=== PATIENT | male | born 1955 | race Caucasian/White ===

== ENCOUNTER 2019-08-26 11:11 | Emergency (ER) | payer BC, MEDICARE ==
[~2019-08-26] VITALS: Ht 175.3 cm; Wt 149.7 kg
[~2019-08-26 11:11] MED LIST: ALL DAY ALLERGY10 M1 PO; ALLEGRA ALLERG180 MG PO; ALLERGY RELIEF10 MG PO; AMLODIPINE BESYL5 MG PO; ASPIRIN EC81 MG PO; ASPIRIN81 MG PO; BUSPIRONE HCL10 MG PO; CARVEDILOL12.5 MG PO; COREG25 MG PO; ENTRESTO 24 MG1 EACH PO; FUROSEMIDE40 MG PO; GLUCOSAMINE &1 EAC1 PO; IBUPROFEN600 MG PO; LASIX20 MG PO; LOSARTAN-HCTZ1 EAC2 PO; METFORMIN HCL500 MG PO; MULTIVITAMINS1 EAC7 PO; NORCO 10-325 T1 EACH PO; OMEPRAZOLE20 MG PO; OXYCODONE HCL10 MG PO; SPIRONOLACTONE25 MG PO; VIIBRYD40 MG PO; VITAMIN D5000 UNIT PO; WARFARIN SODIUM5 MG PO
[2019-08-26] MEDS ORDERED: B-12500 MCG PO (11:26)
[2019-08-26] MEDS ORDERED: CARVEDILOL12.5 MG PO (11:27)
[2019-08-26] MEDS ORDERED: FUROSEMIDE80 MG PO (11:28)
[2019-08-26] MEDS ORDERED: VITAMIN B COMP1 EACH PO (11:28)
[2019-08-26] MEDS ORDERED: VITAMIN D3125 MC2 PO (11:28)
[2019-08-26] MEDS ORDERED: ZITHROMAX250 MG PO (12:57)
[2019-08-26] MEDS ORDERED: PROVENTIL HFA6.7 GM INH (12:57)
--- NOTE | 2019-08-26 16:38 | EKG ---
[facility] [address] [facility] [place] [address] Signed Ventricular-paced rhythm Biventricular pacemaker detected Abnormal ECG When compared with ECG of 13-MAY-2018 17:29, Electronic ventricular pacemaker has replaced Sinus rhythm Confirmed by JENNIFER TOWNSEND MD ([id number]) on 08/26/2019 4:37:55 PM Electronically Signed By: JENNIFER TOWNSEND MD 08/26/19 1638 PATIENT NAME: JEANNE MONTE Electrocardiogram DATE OF : 53 PHYSICIAN: JENNIFER TOWNSEND MD REPORT #: [id number] REPORT IS CONFIDENTIAL AND NOT TO BE RELEASED WITHOUT AUTHORIZATION
== END 2019-08-26 13:15 | disposition home or self-care (01) ==
LOC: ED 11:11
DX: J40 Bronchitis, not specified as acute or chronic (principal); I11.0 Hypertensive heart disease with heart failure; I50.9 Heart failure, unspecified; Z88.0 Allergy status to penicillin; Z79.899 Other long term (current) drug therapy
CPT/HCPCS: 71045; 80053; 83605; 83735; 83880; 84484; 85025; 93005; 93010; 94640; 99285-25

== ENCOUNTER 2024-06-18 19:29 | Inpatient (IN) | payer BC, MEDICARE ==
[~2024-06-18] VITALS: Ht 175.3 cm; Wt 127.5 kg
[~2024-06-18 19:29] MED LIST changes: +B-12500 MCG PO; +COREG6.25 MG PO; +FUROSEMIDE80 MG PO; +PROVENTIL HFA6.7 GM INH; +VITAMIN B COMP1 EACH PO; +VITAMIN D3125 MC2 PO; +ZITHROMAX250 MG PO
[2024-06-18] MEDS ORDERED: FARESTON60 MG PO (19:52)
[2024-06-18] MEDS ORDERED: ELIQUIS5 MG PO (19:52)
[2024-06-18] MEDS ORDERED: ondansetron HCL 4 MG/2 ML VIAL IV ONE (20:15)
[2024-06-18 20:27] LABS: RBC 4.24 M/ul (4.3-5.7)
[2024-06-18] MEDS ORDERED: MORPHINE SULFATE 4 MG/ML VIAL IV ONE (20:30)
[2024-06-18 20:31] LABS: BASOPHILS 0.8 % (0-2); EOSINOPHILS 0.4 % (0-6); HEMATOCRIT 37.8 % (35.0-50.0); HEMOGLOBIN 12.5 g/dL (12.0-18.0); LYMPHOCYTES 4.3 % (24-44); MCH 29.5 (27-36); MCHC 33.1 g/dl (30-36); MCV 89.2 fl (81-99); MONOCYTES 7.4 % (0-12); NEUTROPHILS 87.1 % (39-80); PLATELET COUNT 332 K/uL (140-440); RDW 17.4 (10.5-15.0)
[2024-06-18 20:35] LABS: BILIRUBIN, URINE NEGATIVE (negative); BLOOD/HGB, URINE NEGATIVE (Negative); KETONE, URINE TRACE (Negative); LEUK ESTERASE, URINE NEGATIVE (negative); NITRITE, URINE NEGATIVE (negative); PH, URINE 5.5 (5-7)
[2024-06-18 20:37] LABS: INR 1.32 (0.80-1.30); PROTIME 15.7 Sec (11.2-14.2)
[2024-06-18 20:56] LABS: ALBUMIN 2.4 g/dL (3.4-5.0); ALBUMIN/GLOBULIN RATIO 0.45 (1.1-2.4); ANION GAP 18.2 (7-21); BILIRUBIN, TOTAL 0.6 ng/dL (0.2-1.0); BUN/CREATININE RATIO 13.13 (6.0-28.6); CALCIUM 8.8 mg/dL (8.5-10.1); CREATININE, SERUM 1.37 mg/dL (0.70-1.30); MAGNESIUM 1.9 mg/dL (1.8-2.4); POTASSIUM 3.2 mmol/L (3.5-5.1); PROTEIN, TOTAL 7.7 g/dL (6.4-8.2)
[2024-06-18 20:56] LABS: BACTERIA, URINE 1+ /hpf (negative); CASTS, URINE HYALINE 1+ \\lpf; COLLECTION TYPE, URINE CLEAN CATCH; CRYSTALS, URINE NONE SEEN (0-1+); EPITHELIAL CELLS, URINE SQUAMOUS 1+ /lpf (0-1+); RED BLOOD CELLS, URINE 0-1 /hpf (0-5); REFLEX CULTURE, URINE No (No)
[2024-06-18] MEDS ORDERED: HYDROmorphone HCL 1 MG/ML SYR IV PRN ×2 (21:45→22:00)
[2024-06-18] MEDS ORDERED: metroNIDAZOLE/SODIUM CHLORIDE 500 MG/100 ML PIGGYBACK IV ONE (21:45)
[2024-06-18] MEDS ORDERED: levoFLOXacin 750 MG PIGGYBACK IV ONE (21:45)
[2024-06-18] MEDS ORDERED: FAMOTIDINE 20 MG/ 2 ML VIAL IV SCH (21:50)
[2024-06-18] MEDS ORDERED: DEXTROSE 5% - LACTATED RINGERS 1,000 ML IV SCH (22:00)
[2024-06-18] MEDS ORDERED: ondansetron HCL 4 MG/2 ML VIAL IV PRN ×2 (22:00→22:30)
[2024-06-18] MEDS ORDERED: CIPROFLOXACIN/DEXTROSE 400 MG/200 ML PIGGYBACK IV SCH (22:25)
[2024-06-18] MEDS ORDERED: LACTATED RINGER'S 1,000 ML IV SCH (22:30)
[2024-06-18] MEDS ORDERED: KETOROLAC TROMETHAMINE 30 MG/ML VIAL IV PRN (22:30)
[2024-06-18] MEDS ORDERED: MORPHINE SULFATE 10 MG/ML VIAL IV PRN (22:30)
[2024-06-18] MEDS ORDERED: ATIVAN1 MG PO (22:32)
[2024-06-18] MEDS ORDERED: FARXIGA10 MG PO (22:32)
[2024-06-18] MEDS ORDERED: busPIRone HCL 5 MG TAB PO SCH (22:41)
[2024-06-18] MEDS ORDERED: carvediloL 6.25 MG TAB PO SCH (22:42)
[2024-06-18] MEDS ORDERED: INHALER, ASSIST DEVICES 1 EACH SPACER MISC ONE (22:45)
[2024-06-18] MEDS ORDERED: ALBUTEROL SULFATE 8 GM INH INH PRN (22:45)
[2024-06-18 23:04] VITALS: BP 112/62
[2024-06-18] MEDS ORDERED: ALBUTEROL SULFATE 0.083% 3 ML VIAL INH PRN (23:15)
[2024-06-19] VITALS (10 sets, daily range): BP systolic 93–105; BP diastolic 50–59
[2024-06-19 05:45] LABS: BASOPHILS 0.4 % (0-2); EOSINOPHILS 0.3 % (0-6); HEMATOCRIT 33.5 % (35.0-50.0); HEMOGLOBIN 11.1 g/dL (12.0-18.0); LYMPHOCYTES 6.2 % (24-44); MCH 29.6 (27-36); MCHC 33.1 g/dl (30-36); MCV 89.4 fl (81-99); MONOCYTES 9.5 % (0-12); NEUTROPHILS 83.6 % (39-80); PLATELET COUNT 290 K/uL (140-440); RBC 3.75 M/ul (4.3-5.7); RDW 16.8 (10.5-15.0)
[2024-06-19] MEDS ORDERED: ACETAMINOPHEN 500 MG TAB PO SCH (06:00)
[2024-06-19] MEDS ORDERED: metroNIDAZOLE/SODIUM CHLORIDE 500 MG/100 ML PIGGYBACK IV SCH (06:00)
[2024-06-19 06:01] LABS: ALBUMIN 2.1 g/dL (3.4-5.0); ALBUMIN/GLOBULIN RATIO 0.45 (1.1-2.4); ANION GAP 11.1 (7-21); BILIRUBIN, TOTAL 0.5 ng/dL (0.2-1.0); BUN/CREATININE RATIO 13.95 (6.0-28.6); CALCIUM 8.7 mg/dL (8.5-10.1); CREATININE, SERUM 1.29 mg/dL (0.70-1.30); POTASSIUM 3.1 mmol/L (3.5-5.1); PROTEIN, TOTAL 6.8 g/dL (6.4-8.2)
[2024-06-19] MEDS ORDERED: POTASSIUM CHLORIDE 40 MEQ in DEXTROSE 5% 250 ML IV ONE (08:00)
[2024-06-19] MEDS ORDERED: FAMOTIDINE 20 MG/ 2 ML VIAL IV SCH (09:00)
[2024-06-19] MEDS ORDERED: TORSEMIDE20 MG PO (10:15)
[2024-06-19] MEDS ORDERED: TRAMADOL HCL50 MG PO (10:16)
[2024-06-19] MEDS ORDERED: ZYLOPRIM100 MG PO (10:16)
[2024-06-19] MEDS ORDERED: ZYRTEC10 MG PO (10:17)
[2024-06-19] MEDS ORDERED: MELATONIN3 MG PO (10:17)
[2024-06-19] MEDS ORDERED: NYSTOP60 GM TOP (10:18)
[2024-06-19] MEDS ORDERED: LACTULOSE10 GM/15 M PO (10:19)
[2024-06-19] MEDS ORDERED: ACETAMINOPHEN500 M1 PO (10:20)
[2024-06-19] MEDS ORDERED: LORazepam 0.5 MG TAB ONE (18:02)
[2024-06-19] MEDS ORDERED: LORazepam 1 MG TAB PO PRN (22:00)
[2024-06-20] VITALS (10 sets, daily range): BP systolic 99–143; BP diastolic 57–72
[2024-06-20 05:28] LABS: BASOPHILS 0.4 % (0-2); EOSINOPHILS 0.9 % (0-6); HEMATOCRIT 36.1 % (35.0-50.0); HEMOGLOBIN 11.7 g/dL (12.0-18.0); LYMPHOCYTES 3.1 % (24-44); MCH 29.1 (27-36); MCHC 32.4 g/dl (30-36); MCV 89.8 fl (81-99); MONOCYTES 8.4 % (0-12); NEUTROPHILS 87.2 % (39-80); PLATELET COUNT 344 K/uL (140-440); RBC 4.02 M/ul (4.3-5.7); RDW 17.5 (10.5-15.0)
[2024-06-20 05:41] LABS: ALBUMIN 2.2 g/dL (3.4-5.0); ALBUMIN/GLOBULIN RATIO 0.44 (1.1-2.4); ANION GAP 14.3 (7-21); BILIRUBIN, TOTAL 0.4 ng/dL (0.2-1.0); BUN/CREATININE RATIO 14.09 (6.0-28.6); CALCIUM 9.2 mg/dL (8.5-10.1); CREATININE, SERUM 1.49 mg/dL (0.70-1.30); POTASSIUM 3.3 mmol/L (3.5-5.1); PROTEIN, TOTAL 7.2 g/dL (6.4-8.2)
[2024-06-20] MEDS ORDERED: DIATRIZOATE MEGLU/DIATRIZO SOD 15 ML BTL PO ONE (11:45)
[2024-06-20] MEDS ORDERED: POTASSIUM CHLORIDE 40 MEQ in DEXTROSE 5% 250 ML IV ONE (15:00)
[2024-06-21] VITALS (10 sets, daily range): BP systolic 86–124; BP diastolic 54–69
[2024-06-21 05:26] LABS: BASOPHILS 0.3 % (0-2); EOSINOPHILS 0.9 % (0-6); HEMATOCRIT 34.3 % (35.0-50.0); HEMOGLOBIN 11.3 g/dL (12.0-18.0); LYMPHOCYTES 2.3 % (24-44); MCH 29.2 (27-36); MCV 88.5 fl (81-99); MONOCYTES 7.3 % (0-12); NEUTROPHILS 89.2 % (39-80); PLATELET COUNT 370 K/uL (140-440); RBC 3.88 M/ul (4.3-5.7); RDW 17.3 (10.5-15.0)
[2024-06-21 05:46] LABS: ALBUMIN 2.1 g/dL (3.4-5.0); ALBUMIN/GLOBULIN RATIO 0.45 (1.1-2.4); ANION GAP 12.4 (7-21); BILIRUBIN, TOTAL 0.5 ng/dL (0.2-1.0); BUN/CREATININE RATIO 13.69 (6.0-28.6); CREATININE, SERUM 1.46 mg/dL (0.70-1.30); POTASSIUM 3.4 mmol/L (3.5-5.1); PROTEIN, TOTAL 6.8 g/dL (6.4-8.2)
[2024-06-21] MEDS ORDERED: CALCIUM CARBONATE 500 MG CHEW PO SCH (08:00)
[2024-06-21] MEDS ORDERED: LACTATED RINGER'S 500 ML IV ONE (19:00)
[2024-06-21] MEDS ORDERED: ACETAMINOPHEN 500 MG TAB PO SCH (20:00)
[2024-06-22] VITALS (10 sets, daily range): BP systolic 98–138; BP diastolic 55–77
[2024-06-22] MEDS ORDERED: MEROPENEM 500 MG in SODIUM CHLORIDE 0.9% 100 ML IV SCH ×2 (02:00→14:00)
[2024-06-22 05:30] LABS: BASOPHILS 0.6 % (0-2); EOSINOPHILS 0.7 % (0-6); HEMATOCRIT 34.9 % (35.0-50.0); HEMOGLOBIN 11.2 g/dL (12.0-18.0); LYMPHOCYTES 3.6 % (24-44); MCH 28.4 (27-36); MCHC 32.1 g/dl (30-36); MCV 88.6 fl (81-99); MONOCYTES 8.1 % (0-12); PLATELET COUNT 407 K/uL (140-440); RBC 3.94 M/ul (4.3-5.7); RDW 17.5 (10.5-15.0)
[2024-06-22 05:41] LABS: ALBUMIN 1.9 g/dL (3.4-5.0); ALBUMIN/GLOBULIN RATIO 0.38 (1.1-2.4); ANION GAP 15.3 (7-21); BILIRUBIN, TOTAL 0.5 ng/dL (0.2-1.0); BUN/CREATININE RATIO 14.11 (6.0-28.6); CREATININE, SERUM 1.63 mg/dL (0.70-1.30); MAGNESIUM 1.9 mg/dL (1.8-2.4); POTASSIUM 3.3 mmol/L (3.5-5.1); PROTEIN, TOTAL 6.9 g/dL (6.4-8.2)
[2024-06-22] MEDS ORDERED: FAMOTIDINE 20 MG TAB PO SCH (09:00)
[2024-06-22] MEDS ORDERED: TRAMADOL HCL 50 MG TAB PO PRN (10:15)
[2024-06-22] MEDS ORDERED: HEParin SOD (PORCINE) 5,000 UNIT/ML SDV SUB-Q SCH (10:45)
[2024-06-22] MEDS ORDERED: HYDROmorphone HCL 1 MG/ML SYR IV PRN (10:45)
[2024-06-22] MEDS ORDERED: DAPAGLIFLOZIN PROPANEDIOL 10 MG TABLET PO SCH (11:00)
[2024-06-22] MEDS ORDERED: VILAZODONE HCL 40 MG PO SCH (11:00)
--- NOTE | 2024-06-22 11:11 | HP ---
[facility] [address] [place], [place] [address] Signed ADMISSION DATE: 06/18/2024 REASON FOR ADMISSION: Acute perforated diverticulitis with localized abscess, 2 x 6 cm. 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 Sigala with three days of increasing left lower abdominal pain. His white count was slightly elevated at 11.6. A CT scan was performed, which showed what appears to be a perforated diverticulitis of the sigmoid with a 3 x 6 cm peridiverticular abscess. Some pneumatosis was noted within the cecum and the ascending colon, which was of uncertain etiology and some inflammatory changes of the colon near the dome of the bladder without evidence of colovesical fistula. Multiple bilateral nonobstructing renal calculi were noted as well. He is admitted for further evaluation and care. His symptoms began 3 days ago and culminated in severe and significant pain tonight. He has not been able to eat well for the past few days he notes. He has not had diverticulitis problem in the past. He did undergo colonoscopy more than 10 years ago, which was said to be normal and he was recommended to have repeat colonoscopy in 10 years. He has no family history of colon cancer that he is aware of, nor any family history of diverticulitis proper, though a distant relative did require colon surgery of some sort for some reason. The patient has other medical problems, most notably, congestive heart failure. He has a pacemaker that is on the right side (previously on the left, got infected and required explantation). 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 Review of medical records including Dr. Lopez's note shows him not to have an inheritable coagulopathy. He has been taking Eliquis on that basis ostensibly. Additionally, he has undergone gastric bypass operation for which he did lose weight, appendectomy and tonsillectomy. CURRENT MEDICATIONS: Include albuterol sulfate. He also takes a buspirone, vilazodone, sacubitril/valsartan, Eliquis, and carvedilol. He has discontinued warfarin now in favor of Eliquis. SOCIAL HISTORY: Electronically Signed By: NIA GUZMÁN MD 06/22/24 1111 PATIENT NAME: JEANNE GAVIRIA HISTORY AND PHYSICAL DATE OF : 53 REPORT #: [id number] PHYSICIAN: NIA GUZMÁN MD PCP: BENNETT BUCHANAN MD REPORT IS CONFIDENTIAL AND NOT TO BE RELEASED WITHOUT AUTHORIZATION [facility] [address] [place], [place] [address] Signed He is . He has a son, Noe, who is in [employer] [facility] nurse and his , Joan Gaviria, who is the [place] nursing home assistant. REVIEW OF SYSTEMS: He denies any shortness of breath or chest pain at this time. He denies any recent wheezing per se. His abdominal pain is mostly in the left lower quadrant. Has no pneumaturia. PHYSICAL EXAMINATION: GENERAL: An obese white man who looks to be in only mild discomfort. He does not look systemically toxic. VITAL SIGNS: Temperature presentation 98.7, pulse 92, respirations 18, blood pressure 126/80. EKG shows a paced rhythm. NECK: Trachea is midline. Chest shows diminished respiratory excursion and inaudible breath sounds. HEART: Regular. ABDOMEN: Obese, but soft. There is tenderness in the left lower quadrant. I do not detect a mass per se. EXTREMITIES: Show no clubbing, cyanosis, or edema. LABORATORY STUDIES: Show a white count of 11.6, hematocrit 37.8, platelets 332,000. Chem profile shows a potassium of 3.2, creatinine 1.37, glucose of 121, a BNP of 1282, which was elevated and troponin 7.8, which is normal. Lipase was noted to be 14. Albumin 2.4. CT scan was reviewed in detail and findings are as previously described. ASSESSMENT: The patient has a localized perforation of sigmoid diverticulitis. Most such small lesions do not actually require drainage and resolve on their own with appropriate support including the antibiotics and bowel rest. That is what we will initiate at this time. Still, we will hold his Eliquis for now and in lieu of that to give sequential compression device stockings as his indication for anticoagulation more than congestive heart failure is history of saddle embolism in 2018. We will treat with broad-spectrum antibiotic combination to include Cipro and Flagyl. The patient does have allergy to penicillin. We will additionally try to maintain his usual status regarding CHF and so forth and I have asked hospitalist Dr. Chávez to consult on the patient no later than tomorrow morning, which he agrees to do. Most likely, he will settle this problem with IV antibiotics, bowel rest and transition to oral antibiotics and ultimately not require surgical intervention, though it is a consideration should things worsen or the abscess becomes larger or other obvious causes Electronically Signed By: NIA GUZMÁN MD 06/22/24 1111 PATIENT NAME: JEANNE GAVIRIA HISTORY AND PHYSICAL DATE OF : 53 REPORT #: [id number] PHYSICIAN: NIA GUZMÁN MD PCP: BENNETT BUCHANAN MD REPORT IS CONFIDENTIAL AND NOT TO BE RELEASED WITHOUT AUTHORIZATION [address] [place] [address] Signed to need operative intervention. MD PATRICIA Oneill/LEONARDO /[id number] cc: Dr. Jose F Buchanan MD Copies: BENNETT BUCHANAN MD ~ Electronically Signed By: NIA GUZMÁN MD 06/22/24 1111 PATIENT NAME: JEANNE GAVIRIA HISTORY AND PHYSICAL DATE OF : 53 REPORT #: [id number] PHYSICIAN: NIA GUZMÁN MD PCP: BENNETT BUCHANAN MD REPORT IS CONFIDENTIAL AND NOT TO BE RELEASED WITHOUT AUTHORIZATION
[2024-06-22] MEDS ORDERED: SACUBITRIL/VALSARTAN 1 EACH TABLET PO SCH (11:30)
[2024-06-22] MEDS ORDERED: HEPARIN SOD,PORK IN 0.45% NACL 500 ML IV SCH (13:15)
[2024-06-22] MEDS ORDERED: HEParin SOD (PORCINE) 5,000 UNIT/ML SYR IV ONE (13:15)
[2024-06-22] MEDS ORDERED: HEParin SOD (PORCINE) 5,000 UNIT/ML SYR IV PRN ×3 (13:15)
[2024-06-22 13:28] LABS: BASOPHILS 0.1 % (0-2); EOSINOPHILS 0.3 % (0-6); HEMATOCRIT 37.7 % (35.0-50.0); HEMOGLOBIN 12.4 g/dL (12.0-18.0); LYMPHOCYTES 2.4 % (24-44); MCH 29.3 (27-36); MCHC 32.8 g/dl (30-36); MCV 89.4 fl (81-99); NEUTROPHILS 92.2 % (39-80); PLATELET COUNT 414 K/uL (140-440); RBC 4.22 M/ul (4.3-5.7); RDW 17.6 (10.5-15.0)
[2024-06-22 13:38] LABS: INR 1.48 (0.80-1.30); PROTIME 17.5 Sec (11.2-14.2)
[2024-06-22 13:40] LABS: PARTIAL THROMBOPLASTIN TIME 48.1 Sec (22.9-41.3)
[2024-06-23] VITALS (10 sets, daily range): BP systolic 100–132; BP diastolic 62–73
[2024-06-23] MEDS ORDERED: MEROPENEM 500 MG in SODIUM CHLORIDE 0.9% 100 ML IV SCH (02:00)
[2024-06-23 05:37] LABS: BASOPHILS 0.3 % (0-2); EOSINOPHILS 0.3 % (0-6); HEMATOCRIT 35.7 % (35.0-50.0); HEMOGLOBIN 11.7 g/dL (12.0-18.0); LYMPHOCYTES 4.4 % (24-44); MCHC 32.8 g/dl (30-36); MCV 88.5 fl (81-99); MONOCYTES 7.4 % (0-12); NEUTROPHILS 87.6 % (39-80); PLATELET COUNT 455 K/uL (140-440); RBC 4.03 M/ul (4.3-5.7); RDW 17.6 (10.5-15.0)
[2024-06-23 05:55] LABS: ALBUMIN/GLOBULIN RATIO 0.39 (1.1-2.4); BILIRUBIN, TOTAL 0.4 ng/dL (0.2-1.0); BUN/CREATININE RATIO 19.4 (6.0-28.6); CREATININE, SERUM 1.34 mg/dL (0.70-1.30); PROTEIN, TOTAL 7.1 g/dL (6.4-8.2)
[2024-06-23] MEDS ORDERED: FAMOTIDINE 20 MG/ 2 ML VIAL IV SCH (09:00)
[2024-06-23] MEDS ORDERED: POTASSIUM CHLORIDE 10 MEQ TABCR PO ONE (09:00)
[2024-06-23] MEDS ORDERED: POTASSIUM CHLORIDE 40 MEQ in DEXTROSE 5% 250 ML IV ONE (09:00)
[2024-06-24] VITALS (8 sets, daily range): BP systolic 101–122; BP diastolic 59–71
[2024-06-24 05:47] LABS: ALBUMIN 1.9 g/dL (3.4-5.0); ALBUMIN/GLOBULIN RATIO 0.37 (1.1-2.4); ANION GAP 14.6 (7-21); BILIRUBIN, TOTAL 0.4 ng/dL (0.2-1.0); BUN/CREATININE RATIO 21.31 (6.0-28.6); CREATININE, SERUM 1.22 mg/dL (0.70-1.30); POTASSIUM 3.6 mmol/L (3.5-5.1)
[2024-06-24 08:11] LABS: BASOPHILS 0.4 % (0-2); EOSINOPHILS 0.7 % (0-6); HEMATOCRIT 37.2 % (35.0-50.0); HEMOGLOBIN 12.2 g/dL (12.0-18.0); LYMPHOCYTES 4.2 % (24-44); MCH 29.1 (27-36); MCHC 32.8 g/dl (30-36); MCV 88.9 fl (81-99); MONOCYTES 5.6 % (0-12); NEUTROPHILS 89.1 % (39-80); PLATELET COUNT 398 K/uL (140-440); RBC 4.18 M/ul (4.3-5.7); RDW 18.1 (10.5-15.0)
[2024-06-24] MEDS ORDERED: LACTATED RINGER'S 1,000 ML IV SCH (08:30)
[2024-06-24] MEDS ORDERED: ENOXAPARIN SODIUM 120 MG/0.8 ML SYR SUB-Q SCH (21:00)
[2024-06-25] VITALS (9 sets, daily range): BP systolic 102–113; BP diastolic 57–70
[2024-06-25 05:19] LABS: BASOPHILS 0.9 % (0-2); EOSINOPHILS 1.3 % (0-6); HEMATOCRIT 36.2 % (35.0-50.0); HEMOGLOBIN 11.8 g/dL (12.0-18.0); LYMPHOCYTES 4.6 % (24-44); MCH 28.8 (27-36); MCHC 32.6 g/dl (30-36); MCV 88.3 fl (81-99); MONOCYTES 9.6 % (0-12); NEUTROPHILS 83.6 % (39-80); PLATELET COUNT 529 K/uL (140-440); RDW 18.1 (10.5-15.0)
[2024-06-25 05:29] LABS: ANION GAP 12.8 (7-21); BUN/CREATININE RATIO 22.85 (6.0-28.6); CREATININE, SERUM 1.05 mg/dL (0.70-1.30); POTASSIUM 3.8 mmol/L (3.5-5.1)
[2024-06-25] MEDS ORDERED: FAMOTIDINE 20 MG TAB PO SCH (09:00)
[2024-06-25] MEDS ORDERED: IBLOOD GLUCOSE TEST STRIP 1 EA TEST VI SCH (20:00)
[2024-06-25] MEDS ORDERED: Insulin Regular, Human 100 UNIT/ML ML SUB-Q SCH (20:00)
[2024-06-26] VITALS (9 sets, daily range): BP systolic 109–123; BP diastolic 64–75
[2024-06-26 05:24] LABS: BASOPHILS 0.8 % (0-2); EOSINOPHILS 1.4 % (0-6); HEMATOCRIT 35.6 % (35.0-50.0); HEMOGLOBIN 11.5 g/dL (12.0-18.0); LYMPHOCYTES 4.9 % (24-44); MCH 28.4 (27-36); MCHC 32.2 g/dl (30-36); MCV 88.2 fl (81-99); MONOCYTES 9.3 % (0-12); NEUTROPHILS 83.6 % (39-80); PLATELET COUNT 506 K/uL (140-440); RBC 4.04 M/ul (4.3-5.7)
[2024-06-26 05:41] LABS: ANION GAP 13.2 (7-21); BUN/CREATININE RATIO 21.9 (6.0-28.6); CALCIUM 9.1 mg/dL (8.5-10.1); CREATININE, SERUM 1.05 mg/dL (0.70-1.30); MAGNESIUM 1.9 mg/dL (1.8-2.4); POTASSIUM 4.2 mmol/L (3.5-5.1)
[2024-06-26] MEDS ORDERED: GLYCERIN 2 GM SUPP PR PRN (18:45)
[2024-06-26] MEDS ORDERED: carvediloL 6.25 MG TAB PO SCH (21:00)
[2024-06-27] VITALS (9 sets, daily range): BP systolic 108–125; BP diastolic 64–67
[2024-06-27 05:42] LABS: HEMATOCRIT 33.9 % (35.0-50.0); HEMOGLOBIN 11.3 g/dL (12.0-18.0); LYMPHOCYTES 4.4 % (24-44); MCH 29.2 (27-36); MCHC 33.2 g/dl (30-36); MCV 88.1 fl (81-99); NEUTROPHILS 85.6 % (39-80); PLATELET COUNT 475 K/uL (140-440); RBC 3.85 M/ul (4.3-5.7)
[2024-06-27 05:56] LABS: ANION GAP 11.3 (7-21); BUN/CREATININE RATIO 21.97 (6.0-28.6); CREATININE, SERUM 0.91 mg/dL (0.70-1.30); POTASSIUM 4.3 mmol/L (3.5-5.1)
[2024-06-27] MEDS ORDERED: TORSEMIDE 5 MG TAB PO SCH (10:02)
[2024-06-27] MEDS ORDERED: KETOROLAC TROMETHAMINE 15 MG/ML VIAL IV PRN (11:15)
[2024-06-27] MEDS ORDERED: TRAMADOL HCL 50 MG TAB PO PRN (11:15)
[2024-06-27] MEDS ORDERED: HYDROmorphone HCL 1 MG/ML SYR IV PRN (11:30)
[2024-06-27] MEDS ORDERED: METOCLOPRAMIDE HCL 10 MG/2 ML SDV IV SCH (14:00)
[2024-06-27] MEDS ORDERED: MAGNESIUM HYDROXIDE/AL HYDROX 30 ML CUP PO PRN (16:00)
[2024-06-27] MEDS ORDERED: LORazepam 1 MG TAB PO SCH (21:00)
[2024-06-28] VITALS (7 sets, daily range): BP systolic 104–128; BP diastolic 59–74
[2024-06-28 05:41] LABS: BASOPHILS 0.5 % (0-2); EOSINOPHILS 0.8 % (0-6); HEMATOCRIT 36.7 % (35.0-50.0); HEMOGLOBIN 11.9 g/dL (12.0-18.0); LYMPHOCYTES 6.1 % (24-44); MCH 28.7 (27-36); MCHC 32.4 g/dl (30-36); MCV 88.8 fl (81-99); MONOCYTES 7.2 % (0-12); NEUTROPHILS 85.4 % (39-80); PLATELET COUNT 509 K/uL (140-440); RBC 4.13 M/ul (4.3-5.7); RDW 18.1 (10.5-15.0)
[2024-06-28 05:55] LABS: BUN/CREATININE RATIO 20.75 (6.0-28.6); CALCIUM 9.4 mg/dL (8.5-10.1); CREATININE, SERUM 1.06 mg/dL (0.70-1.30)
[2024-06-28] MEDS ORDERED: FAT EMULSION 20% 500 ML IV SCH (16:00)
[2024-06-28] MEDS ORDERED: MULTIVITAMINS 10 ML,ZINC/COPPER/MANGANESE/SELENIUM 1 ML,Insulin Regular, Human 20 UNIT ... IV SCH (16:00)
[2024-06-29] VITALS (8 sets, daily range): BP systolic 107–124; BP diastolic 64–71
[2024-06-29 01:47] LABS: BILIRUBIN, URINE POSITIVE (negative); BLOOD/HGB, URINE LARGE (Negative); KETONE, URINE TRACE (Negative); LEUK ESTERASE, URINE NEGATIVE (negative); NITRITE, URINE NEGATIVE (negative)
[2024-06-29 01:58] LABS: RED BLOOD CELLS, URINE >50 /hpf (0-5)
[2024-06-29 01:59] LABS: BACTERIA, URINE RARE /hpf (negative); CASTS, URINE NONE SEEN \\lpf; COLLECTION TYPE, URINE CLEAN CATCH; CRYSTALS, URINE NONE SEEN (0-1+); EPITHELIAL CELLS, URINE 0 /lpf (0-1+); REFLEX CULTURE, URINE No (No)
[2024-06-29 05:33] LABS: BASOPHILS 1.2 % (0-2); EOSINOPHILS 0.9 % (0-6); HEMATOCRIT 32.4 % (35.0-50.0); HEMOGLOBIN 10.9 g/dL (12.0-18.0); LYMPHOCYTES 3.9 % (24-44); MCH 29.5 (27-36); MCHC 33.7 g/dl (30-36); MCV 87.5 fl (81-99); MONOCYTES 7.1 % (0-12); NEUTROPHILS 86.9 % (39-80); PLATELET COUNT 454 K/uL (140-440); RDW 18.1 (10.5-15.0)
[2024-06-29 05:47] LABS: ANION GAP 6.4 (7-21); BUN/CREATININE RATIO 22.91 (6.0-28.6); CALCIUM 8.8 mg/dL (8.5-10.1); CREATININE, SERUM 0.96 mg/dL (0.70-1.30); MAGNESIUM 1.8 mg/dL (1.8-2.4); POTASSIUM 3.4 mmol/L (3.5-5.1)
[2024-06-29] MEDS ORDERED: POTASSIUM CHLORIDE 10 MEQ TABCR PO ONE (08:00)
[2024-06-29] MEDS ORDERED: LIDOCAINE HCL 4% 1 EACH PATCH TD SCH (11:45)
[2024-06-29] MEDS ORDERED: ACETAMINOPHEN 500 MG TAB PO SCH (14:00)
[2024-06-29] MEDS ORDERED: LIDOCAINE PATCH REMOVAL 1 EA TD SCH ×2 (21:00)
[2024-06-29] MEDS ORDERED: ENOXAPARIN SODIUM 100 MG/ML SYR SUB-Q SCH (21:00)
[2024-06-30] VITALS (7 sets, daily range): BP systolic 97–112; BP diastolic 60–72
[2024-06-30 06:35] LABS: EOSINOPHILS 1.1 % (0-6); HEMATOCRIT 31.8 % (35.0-50.0); HEMOGLOBIN 10.4 g/dL (12.0-18.0); LYMPHOCYTES 5.4 % (24-44); MCH 28.9 (27-36); MCHC 32.5 g/dl (30-36); MCV 88.9 fl (81-99); MONOCYTES 11.5 % (0-12); PLATELET COUNT 420 K/uL (140-440); RBC 3.58 M/ul (4.3-5.7); RDW 17.7 (10.5-15.0)
[2024-06-30 06:50] LABS: ANION GAP 6.8 (7-21); BUN/CREATININE RATIO 27.27 (6.0-28.6); CALCIUM 8.3 mg/dL (8.5-10.1); CREATININE, SERUM 0.88 mg/dL (0.70-1.30); POTASSIUM 3.8 mmol/L (3.5-5.1)
[2024-06-30] MEDS ORDERED: METOPROLOL TARTRATE 25 MG TAB PO SCH (21:00)
[2024-07-01] VITALS (9 sets, daily range): BP systolic 99–109; BP diastolic 48–72
[2024-07-01 05:44] LABS: BASOPHILS 0.5 % (0-2); EOSINOPHILS 1.3 % (0-6); HEMATOCRIT 32.5 % (35.0-50.0); HEMOGLOBIN 10.5 g/dL (12.0-18.0); LYMPHOCYTES 6.3 % (24-44); MCH 28.8 (27-36); MCHC 32.2 g/dl (30-36); MCV 89.4 fl (81-99); NEUTROPHILS 81.9 % (39-80); PLATELET COUNT 422 K/uL (140-440); RBC 3.64 M/ul (4.3-5.7); RDW 17.9 (10.5-15.0)
[2024-07-01 05:59] LABS: ANION GAP 7.9 (7-21); BUN/CREATININE RATIO 29.34 (6.0-28.6); CALCIUM 8.7 mg/dL (8.5-10.1); CREATININE, SERUM 0.92 mg/dL (0.70-1.30); MAGNESIUM 1.9 mg/dL (1.8-2.4); POTASSIUM 3.9 mmol/L (3.5-5.1)
[2024-07-01] MEDS ORDERED: POTASSIUM CHLORIDE 10 MEQ TABCR PO ONE (07:45)
[2024-07-01] MEDS ORDERED: FUROSEMIDE 40 MG/4 ML VIAL IV SCH (09:00)
[2024-07-01] MEDS ORDERED: NOREPINEPHRINE BITARTRATE 4 MG/4 ML AMP ONE (12:03)
[2024-07-01] MEDS ORDERED: propofoL 200 MG/20 ML VIAL ONE (12:03)
[2024-07-01] MEDS ORDERED: ETOMIDATE 40 MG/20 ML VIAL ONE (12:09)
[2024-07-01] MEDS ORDERED: SODIUM CHLORIDE 0.9% 100 ML IV ONE (12:19)
[2024-07-01] MEDS ORDERED: HEParin SOD (PORCINE) 1,000 UNITS/ML VIAL ONE (12:19)
[2024-07-01] MEDS ORDERED: SODIUM CHLORIDE 0.9% 1,000 ML IV ONE (12:54)
[2024-07-01] MEDS ORDERED: SODIUM CHLORIDE 0.9% 500 ML IV ONE (12:55)
[2024-07-01] MEDS ORDERED: ROCURONIUM BROMIDE 50 MG/5 ML SYR ONE ×2 (12:56→14:01)
[2024-07-01] MEDS ORDERED: LIDOCAINE HCL 1% 30 ML SDV ONE (12:56)
[2024-07-01] MEDS ORDERED: LIDOCAINE HCL 2% 5 ML SDV ONE (12:56)
[2024-07-01] MEDS ORDERED: fentaNYL citrate 100 MCG/2 ML VIAL ONE (13:01)
[2024-07-01] MEDS ORDERED: ePHEDrine sulfate 50 MG/ML AMP ONE (13:13)
[2024-07-01] MEDS ORDERED: dexmedeTOMIDine HCl 200 MCG/2 ML VIAL ONE (13:25)
[2024-07-01] MEDS ORDERED: DEXAMETHASONE SOD PHOS 4 MG/ML VIAL ONE (13:28)
[2024-07-01] MEDS ORDERED: ondansetron HCL 4 MG/2 ML VIAL ONE (13:28)
[2024-07-01] MEDS ORDERED: SEVOFLURANE 250 ML BTL INH ONE (14:15)
[2024-07-01] MEDS ORDERED: SUGAMMADEX SODIUM 200 MG/2 ML ML ONE (14:47)
[2024-07-01] MEDS ORDERED: LACTATED RINGER'S 1,000 ML IV ONE (14:56)
[2024-07-01 14:57] LABS: ABO O; ANTIBODY SCREEN NEGATIVE; RH POSITIVE
[2024-07-01] MEDS ORDERED: ALBUTEROL 1 PUFF INH ONE (15:03)
[2024-07-01] MEDS ORDERED: IBLOOD GLUCOSE TEST STRIP 1 EA TEST VI PRN (16:00)
[2024-07-01] MEDS ORDERED: fentaNYL citrate 50 MCG/ML SDV IV PRN (16:00)
[2024-07-01] MEDS ORDERED: NALOXONE HCL 0.4 MG SYR IV PRN (16:00)
[2024-07-01] MEDS ORDERED: HYDROmorphone HCL 1 MG/ML SYR IV PRN ×2 (16:00→18:45)
[2024-07-01] MEDS ORDERED: ondansetron HCL 4 MG/2 ML VIAL IV PRN (16:00)
--- NOTE | 2024-07-01 16:33 | OR ---
[facility] [address] [place], [place] [address] Signed DATE OF OPERATION: 06/29/2024 SURGEON: Nia Guzmán MD PREOPERATIVE DIAGNOSIS: Persistent bleeding at insertion site of right internal jugular catheter. POSTOPERATIVE DIAGNOSIS: Persistent bleeding at insertion site of right internal jugular catheter. PROCEDURES: 1. Removal of central venous catheter over the wire change of catheter and slight change of location. 2. Oversew of bleeding site of right neck. ANESTHESIA: 1% lidocaine. INDICATIONS: This 68-year-old white man is fully anticoagulated with Lovenox subcutaneously b.i.d. as prophylaxis against DVT given distant history of saddle embolism. He has been hospitalized for acute diverticulitis with abscess, which is resolving. A central line was placed yesterday for TPN purposes. He had persistent oozing at the insertion site of venous blood. On two separate occasions today, I placed hemostatic sutures at the insertion site, which were initially effective but ultimately found not to be. On that basis, I have recommended removal of the central venous catheter and over the wire technique with reinsertion and passage through a separate insertion site with over-sew of the bleeding site. He understands the risk of bleeding, infection, and so forth and wished to proceed. FINDINGS: Persistent significant venous bleeding was noted at that site. An [id number] exchange was undertaken and the bleeding site oversewn with a 3-0 nylon suture with complete hemostasis. A nearby, but separate stab incision was made to allow for passage of a new Arrow blue tip triple-lumen catheter following dilation. This was placed without problem and appeared to be functional. There was no sign of significant oozing. However, a pursestring suture was placed at the base of the catheter to assure this. Postprocedure x-ray shows good placement of the catheter. DESCRIPTION OF PROCEDURE: Electronically Signed By: NIA GUZMÁN MD 07/01/24 1633 PATIENT NAME: JEANNE MONTE OPERATIVE REPORT DATE OF : 53 REPORT #: [id number] PHYSICIAN: NIA GUZMÁN MD PCP: BENNETT MENDIOLA MD REPORT IS CONFIDENTIAL AND NOT TO BE RELEASED WITHOUT AUTHORIZATION [facility] [address] [place], [place] [address] Signed In the supine position in the bed after full consent and using sterile technique including gloves, gown, etc., the dressing had been removed and Betadine liquid liberally applied across the site. The sutures were freed with an 11 blade. When fully freed, there was significant back bleeding of dark nonpulsatile blood. The catheter itself was secured with the enclosed blunt hemostat, transected and the flexible wire from an Arrow blue tip triple-lumen catheter was placed through the distal port. The catheter was then withdrawn over the wire for standard technique. A 3-0 nylon suture was used to secure the dominant trocar site from the previous catheter placement, which allowed for complete hemostasis. A separate incision was made medial to the former insertion site with an 11 blade, allowing for the wire to be guided to that area. A dilator was placed as was a previously inspected and irrigated Arrow blue tip triple-lumen catheter. This was passed over the wire without problem. Wire was withdrawn. Aspiration on the distal port showed dark nonpulsatile blood. The clip was applied. There appeared to be an excellent hemostasis at this point. The catheter secured to the skin within close collar device and a pursestring suture at the origin site of 3-0 nylon also applied to be extra cautious about any oozing that may occur. The site appears completely hemostatic at this point. A chest x-ray was performed confirming the catheter in the superior vena cava atrial junction. He tolerated the procedure well. MD PATRICIA Oneill/SANTAL /[id number] Copies: ~ Electronically Signed By: NIA GUZMÁN MD 07/01/24 1633 PATIENT NAME: JEANNE MONTE OPERATIVE REPORT DATE OF : 53 REPORT #: [id number] PHYSICIAN: NIA GUZMÁN MD PCP: BENNETT MENDIOLA MD REPORT IS CONFIDENTIAL AND NOT TO BE RELEASED WITHOUT AUTHORIZATION
[2024-07-02] VITALS (13 sets, daily range): BP systolic 90–105; BP diastolic 48–67
[2024-07-02 06:57] LABS: BASOPHILS 0.5 % (0-2); HEMATOCRIT 30.1 % (35.0-50.0); HEMOGLOBIN 9.9 g/dL (12.0-18.0); LYMPHOCYTES 2.6 % (24-44); MCH 29.3 (27-36); MCHC 32.8 g/dl (30-36); MCV 89.2 fl (81-99); MONOCYTES 5.4 % (0-12); NEUTROPHILS 91.5 % (39-80); PLATELET COUNT 376 K/uL (140-440); RBC 3.37 M/ul (4.3-5.7); RDW 17.9 (10.5-15.0)
[2024-07-02 07:08] LABS: ANION GAP 8.1 (7-21); BUN/CREATININE RATIO 32.05 (6.0-28.6); CALCIUM 7.8 mg/dL (8.5-10.1); CREATININE, SERUM 0.78 mg/dL (0.70-1.30); MAGNESIUM 1.9 mg/dL (1.8-2.4); POTASSIUM 4.1 mmol/L (3.5-5.1)
[2024-07-02] MEDS ORDERED: metroNIDAZOLE 250 MG TAB PO SCH (17:00)
--- NOTE | 2024-07-02 18:53 | EKG ---
[facility] [address] [place] [address] Signed Atrial-sensed ventricular-paced rhythm Biventricular pacemaker detected Abnormal ECG When compared with ECG of 26-AUG-2019 11:30, Vent. rate has increased BY 15 BPM Confirmed by Deepak Chávez MD ([id number]) on 07/02/2024 6:53:32 PM Electronically Signed By: DEEPAK CHÁVEZ MD 07/02/241852 PATIENT NAME: JEANNE MONTE ERICK Electrocardiogram DATE OF : 53 PHYSICIAN: DEEPAK CHÁVEZ MD REPORT #: [id number] REPORT IS CONFIDENTIAL AND NOT TO BE RELEASED WITHOUT AUTHORIZATION
[2024-07-02 20:20] LABS: CARCINOEMBRYONIC ANTIGEN 1.4 ng/mL (())
[2024-07-02] MEDS ORDERED: ENOXAPARIN SODIUM 100 MG/ML SYR SUB-Q SCH (21:00)
[2024-07-03 00:23] VITALS: BP 112/72
[2024-07-03 04:51] VITALS: BP 113/69
[2024-07-03 05:49] LABS: BASOPHILS 0.6 % (0-2); EOSINOPHILS 0.7 % (0-6); HEMATOCRIT 28.9 % (35.0-50.0); HEMOGLOBIN 9.5 g/dL (12.0-18.0); MCH 29.5 (27-36); MCHC 32.8 g/dl (30-36); MCV 89.9 fl (81-99); MONOCYTES 9.4 % (0-12); NEUTROPHILS 83.3 % (39-80); PLATELET COUNT 405 K/uL (140-440); RBC 3.21 M/ul (4.3-5.7); RDW 17.8 (10.5-15.0)
[2024-07-03 06:04] LABS: INR 1.02 (0.80-1.30); PARTIAL THROMBOPLASTIN TIME 44.8 Sec (22.9-41.3); PROTIME 13.3 Sec (11.2-14.2)
[2024-07-03 06:10] LABS: ALBUMIN 1.4 g/dL (3.4-5.0); ALBUMIN/GLOBULIN RATIO 0.4 (1.1-2.4); ANION GAP 6.3 (7-21); BILIRUBIN, TOTAL 0.2 ng/dL (0.2-1.0); BUN/CREATININE RATIO 35.29 (6.0-28.6); CALCIUM 7.3 mg/dL (8.5-10.1); CREATININE, SERUM 0.68 mg/dL (0.70-1.30); MAGNESIUM 1.8 mg/dL (1.8-2.4); PHOSPHORUS, INORGANIC 2.3 mg/dL (2.5-4.9); POTASSIUM 3.3 mmol/L (3.5-5.1); PROTEIN, TOTAL 4.9 g/dL (6.4-8.2)
[2024-07-03 06:12] LABS: CHOLESTEROL/HDL RATIO 2.4
[2024-07-03] MEDS ORDERED: POTASSIUM PHOSPHATE 30 MMOL in DEXTROSE 5% 500 ML IV ONE (07:15)
[2024-07-03 08:00] VITALS: BP 113/80
[2024-07-03] MEDS ORDERED: FUROSEMIDE 40 MG/4 ML VIAL IV SCH (10:58)
[2024-07-03] MEDS ORDERED: POTASSIUM CHLORIDE 10 MEQ TABCR PO ONE (11:00)
[2024-07-03 12:00] VITALS: BP 111/72
[2024-07-03 16:00] VITALS: BP 129/71
[2024-07-03] MEDS ORDERED: POTASSIUM CHLORIDE 10 MEQ TABCR PO SCH (17:00)
[2024-07-03 20:20] VITALS: BP 122/76
[2024-07-03] MEDS ORDERED: APIXABAN 5 MG TAB PO SCH (21:00)
[2024-07-04 00:04] VITALS: BP 112/80
[2024-07-04 06:00] VITALS: BP 128/92
[2024-07-04 06:52] LABS: BASOPHILS 0.7 % (0-2); EOSINOPHILS 2.3 % (0-6); HEMATOCRIT 32.5 % (35.0-50.0); HEMOGLOBIN 10.7 g/dL (12.0-18.0); LYMPHOCYTES 8.5 % (24-44); MCH 29.3 (27-36); MCHC 32.8 g/dl (30-36); MCV 89.3 fl (81-99); MONOCYTES 9.5 % (0-12); PLATELET COUNT 483 K/uL (140-440); RBC 3.63 M/ul (4.3-5.7); RDW 17.9 (10.5-15.0)
[2024-07-04 07:05] LABS: ANION GAP 7.8 (7-21); BUN/CREATININE RATIO 29.48 (6.0-28.6); CALCIUM 8.5 mg/dL (8.5-10.1); CREATININE, SERUM 0.78 mg/dL (0.70-1.30); MAGNESIUM 1.9 mg/dL (1.8-2.4); PHOSPHORUS, INORGANIC 2.4 mg/dL (2.5-4.9); POTASSIUM 3.8 mmol/L (3.5-5.1)
[2024-07-04] MEDS ORDERED: POTASSIUM PHOSPHATE 30 MMOL in DEXTROSE 5% 500 ML IV ONE (07:30)
[2024-07-04 08:07] VITALS: BP 116/73
[2024-07-04] MEDS ORDERED: FUROSEMIDE 40 MG TAB PO SCH (09:00)
[2024-07-04] MEDS ORDERED: METRONIDAZOLE250 MG PO (13:16)
[2024-07-04] MEDS ORDERED: TRAMADOL HCL50 MG PO (13:17)
[2024-07-04] MEDS ORDERED: METOPROLOL TART25 MG PO (13:17)
[2024-07-04] MEDS ORDERED: ALBUTEROL2.5 MG/3 M INH (13:17)
[2024-07-04] MEDS ORDERED: VILAZODONE HCL40 MG PO (13:18)
[2024-07-04] MEDS ORDERED: LORAZEPAM1 MG PO (13:18)
[2024-07-04] MEDS ORDERED: BUSPIRONE HCL5 MG PO (13:18)
[2024-07-04] MEDS ORDERED: FUROSEMIDE40 MG PO (13:19)
[2024-07-04] MEDS ORDERED: KLOR-CON 1010 MEQ PO (13:19)
[2024-07-04] MEDS ORDERED: FAMOTIDINE20 MG PO (13:19)
[2024-07-04] MEDS ORDERED: FUROSEMIDE 40 MG TAB PO ONE (13:45)
[2024-07-05 06:30] VITALS: BP 109/71
[2024-07-05 08:02] VITALS: BP 108/68
[2024-07-05 08:25] VITALS: BP 140/73
[2024-07-05 08:31] VITALS: BP 108/68
--- NOTE | 2024-07-06 13:15 | DS ---
[facility] [address] [place], [place] [address] Signed ADMISSION DATE: 06/18/2024 DISCHARGE DATE: 07/05/2024 REASON FOR ADMISSION: Acute perforated diverticulitis with 2 x 6 cm localized abscess and multiple medical problems. 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 Sigala with three days of increasing left lower abdominal pain. His white count was slightly elevated at 11.6. A CT scan was performed, which showed perforated diverticulitis of the sigmoid with a 3 x 6 cm peridiverticular abscess, but without generalized free air. There was some pseudo-pneumatosis of the right colon (cecum) without associated symptoms. Eventration of the bladder dome was noted as well, but there was no clinical or radiographic evidence of colovesical fistula proper. He was admitted for further evaluation and care. Other medical problems include chronic anticoagulation with Eliquis, congestive heart failure, permanent pacemaker multiply replaced related to infection and other problems, and history of saddle embolism in 2018, considered unprovoked. He is noted to have no inheritable coagulopathy, however. PERTINENT PHYSICAL EXAMINATION: GENERAL: Showed an obese white man, who looks to be in only mild discomfort. He did not look systemically toxic. VITAL SIGNS: Temperature is 98.7, pulse 92, respirations 18, and blood pressure 126/80. EKG showed a normal rhythm, which was 100% paced. NECK: Trachea was midline. CHEST: Shows diminished respiratory excursion and inaudible breath sounds. HEART: Regular. ABDOMEN: Obese, but soft. There is tenderness in the left lower abdomen. I do not detect a mass. There is no ascites. EXTREMITIES: Show no clubbing, cyanosis, or edema. LABORATORY DATA: His white count was 11.6. Creatinine 1.37. Platelets are 332,000 and hematocrit 37.8. Chem profile with potassium of 3.2. BNP was 1282. Troponin 7.8 (normal). Lipase 14 and albumin 2.4. HOSPITAL COURSE: He was recognized as having acute sigmoid diverticulitis, his initial episode presumably and with localized perforation without generalized free perforation. The small abscess Electronically Signed By: NIA GUZMÁN MD 07/06/24 1315 PATIENT NAME: JEANNE MONTE DISCHARGE SUMMARY DATE OF : 53 REPORT #: [id number] PHYSICIAN: NIA GUZMÁN MD PCP: BENNETT BUCHANAN MD REPORT IS CONFIDENTIAL AND NOT TO BE RELEASED WITHOUT AUTHORIZATION [facility] [address] [place] [id number] Signed was considered borderline for drainage, and he was initiated on broad-spectrum antibiotics, IV fluid resuscitation and maintenance, and initially, withholding of anticoagulant Eliquis. Consultation was undertaken with the hospitalist (Dr. Chávez). He was encouraged to be out of bed to avoid progressive deconditioning which he suffered under previous hospitalizations. His white blood cell count initially decreased and further characterization of the presumed pneumatosis of the sigmoid was considered pseudopneumatosis rather than a true pathologic problem. A thorough review of his medical record for his underlying other medical problems confirmed that he had an ejection fraction of 55% on a 2018 echo. His white count began to elevate by June 20, 2024 up to 14,00 and creatinine elevated to 1.49. He had progressive pain and a CT scan was repeated to assure that there was no progression of abscess or other development. The CT scan of the abdomen showed a slight increase in size ( 5.9 x 3.6cm) of the abscess, but still relatively small and no sign of free intraperitoneal air. He did tolerate liquids and had no nausea or vomiting, but no bowel movement. Physical therapy was consulted to help mobility (though he was resistant to ambulation generally speaking0. His Eliquis effect lapsed and was started on intravenous heparin at the request of Dr. Ward, hospitalist based on his need for persistent anticoagulation and with uncertainty as to whether he would require surgical intervention promptly should his symptoms worsen, thus maintaining the option to withdraw the anticoagulant prior to operation, which will be less reliable than if he were on the Eliquis. Abdominal pain somewhat increased and his very large abdomen was somewhat more distended though he showed no signs of toxicity ( HR, BP and temperature normal) Liquids were maintained as tolerated, but he had poor oral intake generally speaking. Though his abdominal pain appeared to be improving, he had some nausea and failure to progress. Ensure was then employed to maintain hydration and nutritional support, but inadequate to meet his needs generally speaking. Consideration was made for laparoscopic versus radiologic drainage of the peridiverticular fluid collection. Repeat CT scan was once again performed showing that the cavity was actually decreasing in size, but proximal dilation of the colon was noted. Over time, it became clear that obstruction at the perforation site was progressive. There was no clear evidence of neoplasm per se, probably only inflammatory changes causing the obstructive picture. His CEA was obtained and was normal at 1.2. He was transitioned to subcutaneous Lovenox at therapeutic levels 120 mg b.i.d. and heparin drip withdrawn. Dilated loops of bowel appeared Electronically Signed By: NIA GUZMÁN MD 07/06/24 3130 PATIENT NAME: JEANNE MONTE DISCHARGE SUMMARY DATE OF : 53 REPORT #: [id number] PHYSICIAN: NIA GUZMÁN MD PCP: BENNETT BUCHANAN MD REPORT IS CONFIDENTIAL AND NOT TO BE RELEASED WITHOUT AUTHORIZATION [facility] [address] [facility] [place] [address] Signed not to be improving and it was unclear if he had ileus related to the recent infection or bowel obstruction proper. Intravenous Reglan and a liquid diet was initiated, which did allow for episodic bowel movements, but still abdominal distention and findings suggestive of an obstruction rather than true ileus. His white count began to diminish and despite that, unable to tolerate much oral intake. A right internal jugular catheter was placed on June 28, 2024. TPN was initiated. The patient had improvement and tolerance of his TPN, though did have some minor bleeding issues related to the internal jugular catheter, which at one point was unintentionally withdrawn and removed when ambulating. It was replaced an maintained. The patient had stagnation of his progress and abdominal x-ray showed persistence of an obstructive pattern. At that point, a final ct scan was obtained which showed that the porfirio sigmoidal abscess had entirely resolved but that progressive colonic and small bowel distention was not improving which was indicative of incomplete colonic obstruction and secondary small bowel obstruction as well. It was clear that he would require either resection directly of the obstruction sigmoidwith proximal diversion ( Meliton's procedure) or at least a proximal diversion of colostomy with further characterization of the process in the near future once acute inflammation had improved. Colonoscopy in the acute timeframe for diagnosis and possible balloon dilation of what is likely a stricture was deemed to be high risk for precipitating perforation and leakage once again and was thus deferred for now. On July 01, 2024, he underwent right decompressive transverse loop colostomy. Replacement of right internal jugular catheter was undertaken as well. He had immediate outflow from the ostomy allowing for marked improvement of his clinical situation and decompression of his colon and more proximal bowel. Given his general medical frailty, obesity, and inability to independently transfer, extended care facility placement was initiated. After enteric decompression he tolerated a regular diet much more easil and TPN was able to be discontinued. It was noted that he was still having episodic bowel movements following the proximal transverse loop colostomy which is likely indicative of incomplete diversion but of no clinical significance in his particular situation. It is noted also that projection of the colostomy is not as prominant as usual and is a testament to his Electronically Signed By: NIA GUZMÁN MD 07/06/24 1315 PATIENT NAME: JEANNE MONTE DISCHARGE SUMMARY DATE OF : 53 REPORT #: [id number] PHYSICIAN: NIA GUZMÁN MD PCP: BENNETT BUCHANAN MD REPORT IS CONFIDENTIAL AND NOT TO BE RELEASED WITHOUT AUTHORIZATION [facility] [address] [place], [place] [address] Signed obesity and difficulty of mobilization of the transverse colon at operation. This was related to extensive intraabdominal scarring from the prior gastric bypass operation. His diversion may be incomplete but not clinical concerning at this point. Good proximal diversion has definitely improved his condition at this point. He was discharged from [facility] to a long-term facility on July 05. It is anticipated that he will undergo colonoscopy in 4-6 weeks to assess the obstructive pattern of the sigmoid and dilation if appropriate or other intervention as necessary. DISCHARGE MEDICATIONS: Discharge medications will include: 1. His Eliquis as previously noted.... 5mg po bid 2. Tylenol 1000 mg p.o. q.6 hours as needed for pain. 3. Lasix 40 mg p.o. daily. 4. Potassium chloride 30 mEq p.o. daily. His usual medications of buspirone and other anxiolytics, including Ativan 0.5 mg p.o. b.i.d., which is one of a long-standing for him and other medicines not available for me to enumerated at this time, but located in the regular medical record. DISCHARGE DIAGNOSES: 1. Acute sigmoid perforated diverticulitis with localized abscess less than 6 cm. 2. Secondary obstructive effect of sigmoid following resolution of abscess with proximal dilation requiring diverting loop right transverse colostomy. 3. Morbid obesity. 4. Anxiety disorder. 5. Mood disorder including depression. 6. History of saddle embolism in 2018. 7. History of congestive heart failure. 8. Implanted pacemaker device for chronic atrial fibrillation. 9. History of gastric bypass and Dr. Israel Buchanan. MD PATRICIA Oneill/SANTAL /[id number] Electronically Signed By: NIA GUZMÁN MD 07/06/24 1315 PATIENT NAME: JEANNE MONTE DISCHARGE SUMMARY DATE OF : 53 REPORT #: [id number] PHYSICIAN: NIA GUZMÁN MD PCP: BENNETT BUCHANAN MD REPORT IS CONFIDENTIAL AND NOT TO BE RELEASED WITHOUT AUTHORIZATION [facility] [address] [place], [place] [address] Signed cc: Ryan Lorenz DO Copies: RYAN LORENZ DO ~ Electronically Signed By: NIA GUZMÁN MD 07/06/24 1315 PATIENT NAME: JEANNE MONTE DISCHARGE SUMMARY DATE OF : 53 REPORT #: [id number] PHYSICIAN: NIA GUZMÁN MD PCP: BENNETT BUCHANAN MD REPORT IS CONFIDENTIAL AND NOT TO BE RELEASED WITHOUT AUTHORIZATION
== END 2024-07-05 09:55 | DRG 392 ==
LOC: ED 19:29 → MS 21:50 → CCU 21:50
PROVIDERS: Internal Medicine; Nurse Anesthetist, Certified Registered; Student in an Organized Health Care Education/Training Program; ADMIT Surgery; ATTEND Surgery
PROC: 05PYX3Z Removal of Infusion Device from Upper Vein, External Approach (ICD-10-PCS; principal; 2024-06-29)
PROC: 02HV33Z Insertion of Infusion Device into Superior Vena Cava, Percutaneous Approach (ICD-10-PCS; 2024-06-29)
PROC: 3E0336Z Introduction of Nutritional Substance into Peripheral Vein, Percutaneous Approach (ICD-10-PCS; 2024-06-29)
DX: K57.20 Diverticulitis of large intestine with perforation and abscess without bleeding (principal); I50.32 Chronic diastolic (congestive) heart failure; I48.20 Chronic atrial fibrillation, unspecified; I13.0 Hypertensive heart and chronic kidney disease with heart failure and stage 1 through stage 4 chronic kidney disease, or unspecified chronic kidney disease; Z66 Do not resuscitate; N20.0 Calculus of kidney; N18.2 Chronic kidney disease, stage 2 (mild); Z95.0 Presence of cardiac pacemaker; F39 Unspecified mood [affective] disorder; Z86.711 Personal history of pulmonary embolism; Z90.49 Acquired absence of other specified parts of digestive tract; Z90.89 Acquired absence of other organs; Z88.0 Allergy status to penicillin; Z88.8 Allergy status to other drugs, medicaments and biological substances; E87.6 Hypokalemia; K63.89 Other specified diseases of intestine; M10.9 Gout, unspecified; E66.01 Morbid (severe) obesity due to excess calories; Z98.84 Bariatric surgery status; Z86.73 Personal history of transient ischemic attack (TIA), and cerebral infarction without residual deficits; Z79.899 Other long term (current) drug therapy; Z79.01 Long term (current) use of anticoagulants; Z68.36 Body mass index [BMI] 36.0-36.9, adult
CPT/HCPCS: 00532; 36415; 36591; 36592; 51798; 71045; 74018; 74019; 74176; 74177; 80048; 80053; 80061; 81001; 82378; 83036; 83605; 83690; 83735; 83880; 84100; 84134; 84484; 85025; 85610; 85730; 86850; 86900; 86901; 93005; 93010; 93306; 94640; 94667; 94668; 94760; 94762; 96375; 97110; 97116; 97162; 97166; 97168; 97530; 97535; 99285-25; A9270; A9270-GY; C1751; J0744; J1100; J1171; J1644; J1650; J1815; J1885; J1940; J2003; J2185; J2270; J2405; J2704; J2765; J3010; J3480; J3490; J7030; J7040; J7060; J7121; Q9967

== ENCOUNTER 2024-07-20 14:17 | Observation (INO) | payer BC, MEDICARE ==
[~2024-07-20] VITALS: Ht 175.3 cm; Wt 107.4 kg
--- NOTE | ~2024-07-20 | DS ---
[facility] [address], [place] [address] Draft ADMISSION DATE: 07/20/2024 DISCHARGE DATE: 07/21/2024 REASON FOR ADMISSION: Peristomal ulceration with bleeding, retracted colostomy and multiple medical problems. HISTORY OF PRESENT ILLNESS: This 68-year-old morbidly obese white male was discharged by me from the hospital on July 06, 2024, having been admitted for nearly two weeks following acute perforated diverticulitis with left porfirio-sigmoidal 2 x 6 cm localized abscess. Antibiotic therapy did allow for resolution of the abscess without operative drainage, but he did develop stenotic changes in the site of the perforation in the sigmoid with proximal dilation and secondary small-bowel obstruction. He had undergone colonoscopy in the distant past, which had not shown any malignancy, but had not had any colon evaluation in several years. The fecal diversion was undertaken by right transverse loop colostomy, which allowed for resolution of his obstructive symptoms. The patient has numerous comorbidities including history of saddle embolism with chronic anticoagulation, congestive heart failure, morbid obesity, distant history of open gastric bypass operation, anxiety disorder, and other issues for which he was deemed an unlikely candidate for more typical sigmoid resection with end colostomy or anastomosis and diversion. The overall plan had been to discharge home with decompression, allowance of resolution of the stenotic area of the sigmoid if possible and evaluate with colonoscopy in due course to provide dilation or assurity that it had resolved or to assure there was no sign of malignancy as the underlying cause of the obstructive process. He was discharged to an extended care facility in [place] and over time was dissatisfied and has ultimately gone home locally for further care with his . Notably, his is a registered nurse and the director of our operating room area. He was complaining of excoriation and dysfunction of his ostomy and was seen in the day surgery area in the wound care clinic. My evaluation showed him to have a stomal ulceration, retraction of the proximal limb of the ostomy and to a degree of the distal limb. Given his numerous comorbidities, difficulty of transfers and problems of skin excoriation, admission was deemed appropriate to allow for further evaluation, possible revision of the ostomy and evaluation of the sigmoid problem. This could not be done as an outpatient. PERTINENT PHYSICAL EXAMINATION: GENERAL: Showed an obese white man who did not look systemically toxic and was somewhat PATIENT NAME: JEANNE MONTE DISCHARGE SUMMARY DATE OF : 53 REPORT #: [id number] PHYSICIAN: NIA GUZMÁN MD PCP: BENNETT BUCHANAN MD REPORT IS CONFIDENTIAL AND NOT TO BE RELEASED WITHOUT AUTHORIZATION [facility] [address], [place] [address] Draft uncomfortable. VITAL SIGNS: Temperature 97.3, pulse 80, blood pressure 113/67. NECK: Trachea is midline. CHEST: Clear. HEART: Without murmur. ABDOMEN: Massively obese. Ostomy in the right upper quadrant, it was retracted in the skin, quite excoriated, easy friability and bleeding related to Eliquis use was noted. He did not have left lower abdominal tenderness at this time and no ascites. LABORATORY DATA: White count was 10.3, hematocrit 39.5, platelets 296,000. Chem profile normal. Creatinine 1.67 (baseline glucose 114). HOSPITAL COURSE: He was admitted, given intravenous fluids and underwent a CT scan to better characterize the left lower abdomen as well as the ostomy itself. There appeared to be progressive improvement of the sigmoid area affirmed by interpretation of the radiologist as well. The ostomy itself was noted in the deep subcutaneous space and did show some inflammation in the proximal transverse colon as might be expected. He underwent two fleets enemas in the following morning under intravenous sedation, had colonoscopy beyond the splenic flexure from below to ascertain there was no evidence of malignancy of the segment in question. Numerous diverticula were identified, but there was no evidence of a stricture that was not passable with the colonoscope. Inflammatory focus appeared to be improved on the CT scan as well. The scope was passed beyond the splenic flexure and out into the colostomy bag itself. Withdrawal of scope confirmed diverticulitis of the left colon in the area in question from previous obstruction, though mildly edematous. Did not have a dense stricture and certainly no malignancy as previously noted and described. It appears in my opinion, too early to take down the colostomy, which would be our ultimate goal. Sigmoid resection, though a consideration would be a far larger operation and would likely be tolerated certainly, and at this point in his overall status. A takedown of the colostomy with out resection of the sigmoid would be a reasonable goal under the circumstances of his overall medical situation. Takedown of the colostomy at this time would be fraught with increased hazard of anastomotic failure as the area of sigmoid though improved, is not fully recovered from the inflammatory process. On that basis, he will be discharged home with wound care to include Calmoseptine and initiation of Questran and a low-fiber diet. I will see him in the next week or so and touch base and assess how it progresses. I would suspect that a month more of diversion would likely be well tolerated and allow for further healing of the sigmoid area to PATIENT NAME: JEANNE MONTE DISCHARGE SUMMARY DATE OF : 53 REPORT #: [id number] PHYSICIAN: NIA GUZMÁN MD PCP: BENNETT BUCHANAN MD REPORT IS CONFIDENTIAL AND NOT TO BE RELEASED WITHOUT AUTHORIZATION [facility] [address] [facility] [address] [facility] [place] [address] Draft allow for takedown of the colostomy or other intervention as appropriate. If in the meantime, the sunken and somewhat dysfunctional proximal diversion becomes more problematic than operative intervention to include end transverse colostomy and mucous fistula of the distal portion would be likely considered. I have reviewed all this with the patient and his . They understand and agree to this approach at this time. MD PATRICIA Oneill/SANTAL /[id number] cc: Bennett Buchanan MD Copies: BENNETT BUCHANAN MD ~ PATIENT NAME: JEANNE MONTE DISCHARGE SUMMARY DATE OF : 53 REPORT #: [id number] PHYSICIAN: NIA GUZMÁN MD PCP: BENNETT BUCHANAN MD REPORT IS CONFIDENTIAL AND NOT TO BE RELEASED WITHOUT AUTHORIZATION
--- NOTE | ~2024-07-20 | OR ---
[facility] [address], [place] [address] Draft DATE OF OPERATION: 07/20/2024 SURGEON: Nia Guzmán MD PREOPERATIVE DIAGNOSES: 1. History of sigmoid porfirio-diverticular abscess with resolution, but resultant sigmoid obstructive process requiring proximal diverting right loop colostomy. 2. Significant medical problems. POSTOPERATIVE DIAGNOSES: 1. Patent sigmoid with diverticula and some narrowing. 2. Diverticulosis. PROCEDURE: Colonoscopy beyond splenic flexure. ANESTHESIA: Intravenous sedation and propofol infusion; Anne Serrano CRNA INDICATIONS FOR THE PROCEDURE: This 68-year-old white man is patient Dr. Bennett Buchanan and of our catering manager (Joan). More than a month ago, he was admitted to the hospital with acute sigmoid diverticulitis and peridiverticular abscess, measuring 5 x 2 cm. Conservative management with IV antibiotics was employed due to his significant multiple comorbidities including history of congestive heart failure, history of saddle embolism, fully anticoagulated with Eliquis, morbid obesity, and other issues. Though the abscess completely resolved based on CT scan findings at the site of the diverticular process, an abscess obstruction occurred causing proximal dilation of the colon and small bowel. About a month ago, he underwent proximal right transverse loop colostomy. This allowed for immediate decompression of his gut and marked improvement in his symptoms. In part related to his significant obesity as well as scarring related to prior open gastric bypass operation, he has suffered retraction of his loop transverse colostomy with resultant skin excoriation. He is much improved compared to his time of discharge, and although was in the [facility], has returned home with his here in [place]. I evaluated him yesterday as regard to the retracted loop ileostomy showing profound retraction and excoriation of the skin. On that basis, he was directly admitted to the hospital and further management has been undertaken. It had been the plan all along to do colonoscopy a month or more after his discharge to assure there is no malignancy accounting for his obstructive process. Revision of his PATIENT NAME: JEANNE MONTE OPERATIVE REPORT DATE OF : 53 REPORT #: [id number] PHYSICIAN: NIA GUZMÁN MD PCP: BENNETT BUCHANAN MD REPORT IS CONFIDENTIAL AND NOT TO BE RELEASED WITHOUT AUTHORIZATION [facility] [address], [place] [address] Draft colostomy or takedown of the colostomy may be a consideration. Resection of the sigmoid, which would be a more standard approach of course has been deemed likely more than he could handle at least in the acute situation and that is why it was not done before. Today, he is to undergo flexible sigmoidoscopy or colonoscopy beyond the splenic flexure, possible to assure there was no malignancy at the sigmoid, assess the degree of patency and thus allow for treatment planning regarding his retracted stoma -- whether takedown of the ostomy for revision would be required. The risks of colonoscopy were reviewed with the patient and his . They understand, wish to proceed. This includes, but not limited to bleeding, infection, recurrent diverticulitis, and so on. FINDINGS: He had two enemas as preparation to the defunctionalized limb of colon. Still there was some formed stool in minimal amounts. The scope was passed beyond the sigmoid to the splenic flexure and ultimately out of the ostomy itself. Upon withdrawal of scope, the colon was free of any sign of malignancy or polyps. There were diverticula from the left colon and the sigmoid and the area of sigmoid where obstruction was could be discerned. It was not occluded, but somewhat thickened in the area to be sure. The rectum was normal. DESCRIPTION OF PROCEDURE: The patient was brought to the endoscopy suite and placed in lateral decubitus position, given intravenous sedation with propofol infusional technique. Digital rectal examination showed a small amount of stool balls that were old and were removed. An Olympus video colonoscope was passed into the rectum and manipulated into the sigmoid. Some typical tortuosity of the sigmoid was noted, but with care and insufflation the scope was passed beyond the sigmoid into the left colon beyond the hepatic splenic flexure, and ultimately out of the ostomy site itself. The scope was then withdrawn. Examination of the transverse colon showed it to be entirely normal and the left colon with diverticula in the sigmoid addition with diverticula. The area of previous obstructive narrowing was likely identified in this area and showed no sign of mucosal lesion, dense stricture, or obstruction proper. It was a bit more thickened than would be normal, however, and likely is resolving in its level of inflammation. The rectosigmoid and rectum proper were normal. The scope was removed, and the patient taken to the recovery room in good condition. CONCLUDING DIAGNOSIS: Patency of sigmoid, though some thickening remains. PLAN: We will consider further whether revision of colostomy will be necessary at this time. PATIENT NAME: JEANNE MONTE OPERATIVE REPORT DATE OF : 53 REPORT #: [id number] PHYSICIAN: NIA GUZMÁN MD PCP: BENNETT BUCHANAN MD REPORT IS CONFIDENTIAL AND NOT TO BE RELEASED WITHOUT AUTHORIZATION [address] [address] Draft Takedown of the colostomy as an option might be considered, though would prefer that the sigmoid be fully recovered from recent inflammatory change and obstructive process if possible obviously. MD PATRICIA Oneill/MODL /[id number] cc: Bennett Buchanan MD Copies: BENNETT BUCAHNAN MD ~ PATIENT NAME: JEANNE MONTE OPERATIVE REPORT DATE OF : 53 REPORT #: [id number] PHYSICIAN: NIA GUZMÁN MD PCP: BENNETT BUCHANAN MD REPORT IS CONFIDENTIAL AND NOT TO BE RELEASED WITHOUT AUTHORIZATION
--- NOTE | ~2024-07-20 | HP ---
[facility] [address] [place], [place] [address] Draft ADMISSION DATE: 07/20/2024 REASON FOR ADMISSION: Peristomal ulceration and retraction of transverse loop colostomy. HISTORY OF PRESENT ILLNESS: This 68-year-old white man was discharged from hospital by me on July 06, 2024, having been admitted for a number of days with acute perforated diverticulitis with a left perisigmoidal 2 x 6 cm localized abscess. Antibiotic therapy did help to allow for resolution of the abscess, but he did develop stenotic changes at that site of perforation in the sigmoid with proximal dilation secondary small bowel obstruction. He had undergone colonoscopy in the past, which had not shown any sign of malignancy. A fecal diversion by a right transverse loop colostomy was undertaken, which allow for resolution of his obstructive symptoms. A plan for colonoscopy in a month or so following discharge to assure that the area of narrowing of the sigmoid was not so excessive as to be accounted for by malignancy. He was discharged on extended care facility to [place]. His course in that setting was difficult as he did have considerable peristomal leakage from the ostomy and some retraction. I asked if this would cause excoriation of the skin. He was taken from the extended care facility to home with his (Joan Monte), who happens to be the operating room nursing education consultant. I asked to see him in the day surgery area today in [facility] as he had a peristomal ulcerative changes. My evaluation in the outpatient clinic showed the rubber strut for prevention of retraction of the ostomy to be present, but loosened and significant excoriation of this peristomal area noted. The distal limb appeared to be reasonably observable to more proximal and with scarring and stenosis. He has had output of the ostomy and has had little with any output per rectum for the past two weeks. Given his extent of excoriation and uncertainty regarding the sigmoid as far as obstruction or not, I recommended the admission to the hospital with consideration for flexible sigmoidoscopy and possible revision of the stoma proximally versus a simple takedown of the colostomy. PHYSICAL EXAMINATION: PATIENT NAME: JEANNE MONTE HISTORY AND PHYSICAL DATE OF : 53 REPORT #: [id number] PHYSICIAN: NIA GUZMÁN MD PCP: BENNETT MENDIOLA MD REPORT IS CONFIDENTIAL AND NOT TO BE RELEASED WITHOUT AUTHORIZATION [facility] [address] [place], [place] [address] Draft GENERAL: Obese, white man who does not look systemically toxic at this time. VITAL SIGNS: His temperature is 97.3, his pulse is 80, blood pressure 113/67. NECK: Trachea is midline. CHEST: Shows normal respiratory excursion. He has no tachypnea. ABDOMEN: Massively obese. The ostomy in the right upper abdomen is retracted and the skin around it quite excoriated. He does not have left lower abdominal tenderness at this time. LABORATORY STUDIES: Were obtained, which shows a white count of 10.3, hematocrit 39.5, platelets 296,000 Chem profile was normal. Creatinine is 1.67, essentially at his baseline. Glucose 114. ASSESSMENT: The excoriated area is notable and retraction of the loop ileostomy was notable as well. I had considered a colonoscopy at the end of next week with subsequent definitive treatment, either takedown of the colostomy or revision of the colostomy to be an end-colostomy (as long as there was no distal obstruction anymore) versus a definitive sigmoid resection. It had been our hope and expectation that the stenotic area of the sigmoid would resolve as edema and inflammation from the peridiverticular abscess resolved. There is great on the part of family and others to proceeding with major laparotomy as he has had a distant history of pulmonary embolism in the past, cerebrovascular accident and a myriad of other significant medical issues. Indeed, he has been enrolled in a hospice program on at least one occasion and ultimately withdrawn from that. He does have an implanted pacemaker device for chronic atrial fibrillation and his pulmonary embolism was in 2018 and he has had a history of congestive heart failure in addition to his morbid obesity and anxiety. We will review further a plan of action to include sigmoidoscopy, possible revision of the colostomy. For now, we will avoid his anticoagulant Eliquis; he would tolerate a sigmoidoscopy on Eliquis, but certainly not open revision of the colostomy as is noted. Treatment with PCC may be an alternative approach under the circumstances of revisional surgery is deemed necessary soon. Nia Guzmán MD PATIENT NAME: JEANNE MONTE HISTORY AND PHYSICAL DATE OF : 53 REPORT #: [id number] PHYSICIAN: NIA GUZMÁN MD PCP: BENNETT MENDIOLA MD REPORT IS CONFIDENTIAL AND NOT TO BE RELEASED WITHOUT AUTHORIZATION [address] [address] Draft /[facility] /[id number] cc: Ryan Lorenz DO Copies: RYAN LORENZ DO ~ PATIENT NAME: JEANNE MONTE HISTORY AND PHYSICAL DATE OF : 53 REPORT #: [id number] PHYSICIAN: NIA GUZMÁN MD PCP: BENNETT MENDIOLA MD REPORT IS CONFIDENTIAL AND NOT TO BE RELEASED WITHOUT AUTHORIZATION
[~2024-07-20 14:17] MED LIST changes: +ALBUTEROL2.5 MG/3 M INH; +ARTHRITIS PAIN650 M3 PO; +ATIVAN1 MG PO; +BUSPIRONE HCL5 MG PO; +ELIQUIS5 MG PO; +FAMOTIDINE20 MG PO; +FARESTON60 MG PO; +FARXIGA10 MG PO; +KLOR-CON 1010 MEQ PO; +LACTULOSE10 GM/15 M PO; +LORAZEPAM1 MG PO; +MELATONIN3 MG PO; +METOPROLOL TART25 MG PO; +METRONIDAZOLE250 MG PO; +NYSTOP60 GM TOP; +TORSEMIDE20 MG PO; +TRAMADOL HCL50 MG PO; +VILAZODONE HCL40 MG PO; +ZYLOPRIM100 MG PO; +ZYRTEC10 MG PO
--- NOTE | 2024-07-20 16:23 | NUR ---
RECEIVED CALL FROM DR. GUZMÁN, TELEPHONE ORDERS FOR IV START, LR @ 85ML/HR, LABS: CBC & CMP AND NPO STATUS FOR SURGERY TOMORROW. ORDERS VERIFIED WITH REPEAT BACK. PRIMARY RN NOTIFIED AND ORDERS UPDATED.
[2024-07-20] MEDS ORDERED: LACTATED RINGER'S 1,000 ML IV SCH ×2 (16:30→19:00)
[2024-07-20 16:48] VITALS: BP 113/67
--- NOTE | 2024-07-20 16:50 | NUR ---
PATIENT ARRIVED TO UNIT VIA W/C WITH AND DAY SURGERY RN. PATIENT WEIGHT OBTAINED. PATIENT ABLE TO TRANSFER TO MED SURG BED WITH ASSISTANCE OF FWW AND 1 PA STAND BY ASSIST. PATIENT CHANGED CLOTHING INTO HOSPITAL GOWN WITH ASSISTANCE OF RN. VSS. PATIENT REPORTS PAIN IS A 2/10 AND LOCATED UNDER BREASTS WHERE ABD BINDER IS "RUBBING." NOTED SMALL SKIN BREAKDOWN UPDER BILATERAL BREASTS. SECOND RN SKIN CHECK COMPLETED. REPORTS FROM DAY SURGERY RN THAT PATIENT'S OSTOMY DRESSING WAS CHANGED PRIOR TO HIM COMING TO MED SURG FLOOR. PATIENT BOWEL TONES ACITVE X 4. BILATERAL PULSES WNL. LUNGS CTA. HEART SOUNDS REGULAR. PATIENT REPORTS HAVING A PACE MAKER. 20G IV STARTED IN PATIENT RIGHT FOREARM. LABS DRAWN. IVF STARTED AND INFUSING WNL. PATIENT ORIENTED TO CALL LIGHT AND URINAL PROVIDED. DENIES ANY FURTHER NEEDS. CALL LIGHT WITHIN REACH.
[2024-07-20 17:18] LABS: BASOPHILS 1.3 % (0-2); EOSINOPHILS 7.9 % (0-6); HEMATOCRIT 39.5 % (35.0-50.0); LYMPHOCYTES 11.7 % (24-44); MCH 29.9 (27-36); MCHC 32.8 g/dl (30-36); MCV 91.2 fl (81-99); MONOCYTES 8.9 % (0-12); NEUTROPHILS 70.2 % (39-80); PLATELET COUNT 296 K/uL (140-440); RBC 4.34 M/ul (4.3-5.7); RDW 19.1 (10.5-15.0)
--- NOTE | 2024-07-20 17:24 | NUR ---
LE 1435: PT ARRIVES TO VIA , ACCOMPANIED BY HIS FOR A WOUND/OSTOMY CONSULT. THEY ARE PUT INTO ROOM 1. LE 1440: VS TAKEN. BP 90/65 HR 90 RR 18 SPO2 98% RA TEMP 97.2. LE 1445: THIS RN TAKES DOWN THE OLD OSTOMY SITE. THERE IS A GOOD AMOUNT OF DRAINAGE COMING FROM THE OSTOMY. BABY WIPES ARE USED TO CLEAN THE AREA. PT DOES EXPERIENCE SOME DISCOMFORT DURING CLEANING DUE TO THE SKIN BEING DENUDED AND RAW. ONCE THE AREA IS CLEAN ENOUGH, IT IS NOTED THAT HE STILL HAS SUTURES LATERAL TO THE OSTOMY, A TUBE IN PLACE TO HELP PREVENT THE STOMA FROM RETRACTING, AND A GOOD AMOUNT OF SKIN BREAKDOWN. THE TUBE IS CAUSING A PRESSURE INJURY DUE TO THE POISITING OF THE OSTOMY AND PT'S BODY HABITUS. LE 1530: DR. GUZMÁN IS IN THE ROOM TO ASSESS THE AREA. HE DOES REMOVE THE REMAINING SUTURE ON THE LATERAL SIDE OF THE OSTOMY. HE REQUESTS TO HAVE A SOME LOCAL AND SUTURE COLLECTED. DR. GUZMÁN ULTIMATELY HAS DECIDED TO NOT DO ANYTHING WITH THE SUTURES AND IS GOING TO BE DOING A DIRECT ADMIT TO MED SURG FOR FUTHER EVALUATION. LE 1645: PT IS TRANSFERRED TO MED SURG VIA , ACCOMPANIED BY . THIS RN HELPS GET THE PT SITUATED.
--- NOTE | 2024-07-20 17:30 | NUR ---
PRIMARY RN IN ROOM WITH FENG AT THIS TIME.
[2024-07-20 17:33] LABS: ALBUMIN 3.3 g/dL (3.4-5.0); ALBUMIN/GLOBULIN RATIO 0.62 (1.1-2.4); ANION GAP 13.6 (7-21); BILIRUBIN, TOTAL 0.4 ng/dL (0.2-1.0); BUN/CREATININE RATIO 22.75 (6.0-28.6); CREATININE, SERUM 1.67 mg/dL (0.70-1.30); POTASSIUM 4.6 mmol/L (3.5-5.1); PROTEIN, TOTAL 8.6 g/dL (6.4-8.2)
--- NOTE | 2024-07-20 18:10 | NUR ---
BARREL WASHER STAFF ANSWERED PATIENT CALL LIGHT. PATIENT WITH VOID IN URINAL.
[2024-07-20 18:13] VITALS: BP 113/67
[2024-07-20] MEDS ORDERED: ondansetron HCL 4 MG/2 ML VIAL IV PRN (19:00)
--- NOTE | 2024-07-20 19:38 | NUR ---
RECEIVED REPORT FROM IVANNA NOLAN. PT RESTING IN BED W/ AT BEDSIDE. ALLERGY BAND APPLIED. PT SIGNED SURGICAL CONSENT. WATER AND 7-UP PROVIDED PER PT REQUEST. CALL LIGHT WITHIN REACH.
--- NOTE | 2024-07-20 20:00 | NUR ---
PT RESTING IN BED, SPOUSE AT BEDSIDE. CALL LIGHT WITHIN REACH. ORIENTED X 4. REPORTS PAIN AT OSTOMY, 2/, DECLINED NEED FOR PAIN MED. LSC DIM T/O. RA. HRR. BT HYPOACTIVE. ABD SLIGHTLY TENDER. MIDLINE OSTOMY W/ APPLIANCE CDI. OSTOMY OUPUT ORANGISH/YELLOW. ABD BINDER IN PLACE. PT ON CL LIQ DIET. ABD SKIN EXCORIATED AND TENDER. RAC IV W/ LR INFUSING.
[2024-07-20 20:12] VITALS: BP 99/66
--- NOTE | 2024-07-20 20:15 | NUR ---
DOWN TO CT VIA W/C.
[2024-07-20 20:17] VITALS: BP 99/66
--- NOTE | 2024-07-20 20:37 | NUR ---
BACK IN BED. CALL LIGHT WITHIN REACH.
--- NOTE | 2024-07-20 20:51 | NUR ---
DR. GUZMÁN CONTACTED FOR PT REQUEST OF ROUTINE ATIVAN AND ASKED IF PRE-OP EKG WANTED. NEW ORDERS RECEIEVED.
[2024-07-20] MEDS ORDERED: FAMOTIDINE 20 MG/ 2 ML VIAL IV SCH (21:00)
[2024-07-20] MEDS ORDERED: ACETAMINOPHEN 500 MG TAB PO SCH (22:00)
[2024-07-20] MEDS ORDERED: LORazepam 0.5 MG TAB PO SCH (22:00)
--- NOTE | 2024-07-20 22:04 | NUR ---
PT AWAKE, WATCHING TV. MEDICATED W/ ROUTINE TYLENOL AND ATIVAN. PT REPORTS ABD OSTOMY PAIN 08/07. ICE WATER REFRESHED. CALL LIGHT WITHIN REACH.
--- NOTE | 2024-07-20 23:45 | NUR ---
PT SLEEPING SOUNDLY-APPEARS COMFORTABLE
[2024-07-21] VITALS (9 sets, daily range): BP systolic 95–132; BP diastolic 63–71
--- NOTE | 2024-07-21 01:49 | NUR ---
COOKING APPLIANCE REPAIR TECHNICIAN OBTAINED VITALS AND I&O. PT STATES NO NEEDS AT THIS TIME. CALL LIGHT WITHIN REACH.
--- NOTE | 2024-07-21 01:58 | NUR ---
PT AWAKE, URINAL EMPTIED. DENIES ANY FURTHER NEEDS. NPO.
--- NOTE | 2024-07-21 04:55 | NUR ---
RADIOTELEGRAPH OPERATOR OBTAINED VITALS AND OUTPUT. URINAL EMPTIED. PT STATES NO FURTHER NEEDS AT THIS TIME. CALL LIGHT WITHIN REACH.
--- NOTE | 2024-07-21 05:20 | NUR ---
PT AWAKE, REPORTS HAVING SLEPT WELL. RT IN TO DO EKG. SURGICAL CHECKLIST STARTED. REMAINS NPO.
--- NOTE | 2024-07-21 05:31 | NUR ---
with help from rt shaheen, pre op ekg completed, pt tolerated well. primary rn updated and aware, ekg in chart.
--- NOTE | 2024-07-21 06:14 | NUR ---
PT UPDATED ON SURGERY TIME. ORAL SWABS AND CHAPSTICK GIVEN FOR DRY MOUTH.
--- NOTE | 2024-07-21 07:00 | NUR ---
REPORT RECEIVED FROM BED MANAGER RN JOSE. PATIENT IS LYING IN BED WITH EYES CLOSED AND RESPIRATIONS ARE EVEN AND UNLABORED.
--- NOTE | 2024-07-21 08:07 | NUR ---
CALL TO MD THIS MORNING, VERIFY IF WANTS MORNING LABS, NO NEED. PER MD, GIVE 2 TAP WATER ENEMAS TODAY PRIOR TO SURGERY. ORDERS INPUT, PRIMARY RN NOTIFIED.
--- NOTE | 2024-07-21 08:16 | NUR ---
UR CLINICAL REVIEW: AGUS, UNABLE TO RUN IN SYSTEM DUE TO SYSTEM STATE ENCOUNTER IS INACTIVE MEETS SURGERY GRG FOR COLONOSCOPY AND POTENTIAL OSTOMY REVERSAL [facility] OBS 07/20/24 @ 1854 ORDER MATCHES REG AUTH PENDING, WILL SEND CLINICALS IF REQUESTED. DC PLAN PENDING POTENTIAL SURGICAL INTERVENTION 07/22/23
--- NOTE | 2024-07-21 08:45 | NUR ---
PATIENT IS LYING IN BED AND REQUESTING SOMETHING FOR PAIN THAT IS IN HIS BACK AND ABDOMEN. PATIENT EDUCATED THAT HE IS NPO AT THIS TIME AND ONLY HAS ORAL TYLENOL. PATIENT EXPRESSED UNDERSTANDING. PATIENT WITH SCD'S IN PLACE. PATIENT 0900 PEPCID DOSE ADMINISTERED PER THE EMAR. IV SITE FLUSHED WITH 10 ML NORMAL SALINE AND THE DRESSING IS CLEAN, DRY, AND INTACT. LR IS INFUSING AT 85 ML/HR. PATIENT STATED NO FURTHER NEEDS AT THIS TIME. CALL LIGHT AND PERSONAL BELONGINGS ARE WITHIN REACH.
--- NOTE | 2024-07-21 08:55 | NUR ---
RN CALLED AT THIS TIME. DID NOT ANSWER.
--- NOTE | 2024-07-21 09:25 | NUR ---
FULL ASSESSMENT COMPLETE AND DOCUMENTED IN THE CHART. PATIENT IS ALERT AND ORIENTED TIMES FOUR. PATIENT WITH THE URINAL AT BEDSIDE. PATIENT WITH GENERALIZED WEAKNESS, SCD'S ARE IN PLACE. CARDIAC WITH IRREGULAR HEART TONES ON AUSCULTATION. RADIAL AND PEDAL PULSES ARE STRONG BILATERALLY. CAPILLARY REFILL IS LESS THAN 3 SECONDS BILATERALLY. SENSATION INTACT WITH NO COMPLAINTS OF NUMBNESS OR TINGLING. NO EDEMA NOTED. LR IS INFUSING AT 85 ML/HR. IV DRESSING IS CLEAN, DRY, AND INTACT. PATIENT IS NPO. BOWEL TONES ARE ACTIVE IN ALL FOUR QUADRANTS. ABDOMEN IS TENDER TO PALPATION. COLOSTOMY IN PLACE WITH THE BAG INTACT AND NOT LEAKING. SKIN SURROUNDING THE COLOSTOMY SITE IS EXCORIATED AND VERY TENDER. PATIENT IS ON ROOM AIR AND LUNG SOUNDS ARE CLEAR IN THE UPPER LOBES AND DIMINISHED IN THE BASES BILATERALLY. PATIENT STATES PAIN REMAINS AT 3/10 IN THE ABDOMEN AND BACK. PATIENT IS NOT REQUESTING ANYTHING FOR PAIN AT THIS TIME. PATIENT STATED NO FURTHER NEEDS AT THIS TIME. CALL LIGHT AND PERSONAL BELONGINGS BELONGINGS ARE WITHIN REACH.
--- NOTE | 2024-07-21 09:41 | NUR ---
VISITED DURING SPIRITUAL CARE ROUNDS. PT INITIALLY APPEARED WITHDRAWN, ANXIOUS, VISIBLY SHAKING. CAUSE ANALYST PROVIDED SUPPORTIVE PRESENCE, EMPATHETIC LISTENING, EXPLORED SHARMAINE PRACTICES, PROVIDED PRAYER, EXPLORED UNDERSTANDING OF DIVINE. PT EXHIBIT REDUCED SIGNS OF ANXIETY, EXPRESSED HOPE, BEGAN TO PROCESS EMOTIONS.
[2024-07-21] MEDS ORDERED: LORazepam 0.5 MG TAB PO SCH (10:00)
--- NOTE | 2024-07-21 10:00 | NUR ---
FIRST ENEMA COMPLETE AT THIS TIME. PATIENT GIVEN 400 ML OF TAP WATER. PATIENT EXPRESSED CONCERN ABOUT ABILITY TO HOLD. RN EDUCATED TO HOLD THE ENEMA LONG HE CAN TOLERATE. PATIENT REMAINS ON HIS RIGHT SIDE. PATIENT STATED NO FURTHER NEEDS AT THIS TIME. CALL LIGHT AND PERSONAL BELONGINGS ARE WITHIN REACH.
--- NOTE | 2024-07-21 10:15 | NUR ---
PATIENT RESTING IN BED. ALERT AND ORIENTED. PATIENT LIVES AT HOME WITH . HE RECENTLY WENT TO [facility] AND WAS NOT HAPPY WITH THE CARE THERE. PATIENT WILL BE GOING HOME AT DISCHARGE WITH . PATIENT LIVES IN A SINGLE LEVEL HOME WITH NO STEPS. WALKER, CANE AND WHEELCHAIR AT HOME. HE USES A CPAP THROUGH [employer]. PATIENT DOES NOT DRIVE BUT HAS FAMILY TO DRIVE HIM. HE DENIES ANY DIFFCULTY PAYING UTILITIES OR OBTAINING FOOD. DENIES ANY CASE MANAGEMENT NEEDS AT THIS TIME.
--- NOTE | 2024-07-21 10:40 | NUR ---
REPORT RECEIVED FROM ERIKA IN PACU. VITAL SIGNS TAKEN AND DOCUMENTED IN THE CHAIR. PATIENT WITH NO COMPLAINTS OF PAIN. IV SITE FLUSHED WITH 10 ML NORMAL SALINE AND MAINTENANCE FLUIDS ARE INFUSING AT THIS TIME. PATIENT STATED NO FURTHER NEEDS AT THIS TIME. CALL LIGHT AND PERSONAL BELONGINGS ARE WITHIN REACH.
--- NOTE | 2024-07-21 11:10 | NUR ---
SECOND ENEMA COMPLETE. 400 ML ADMINISTERED. COLOSTOMY DUMPED OF 200 ML SHETTY DRAINAGE. PATIENT IS IN THE ROOM. PATIENT STATED NO FURTHER NEEDS AT THIS TIME. PATIENT EDUCATED TO CALL WHEN THE ARE READY TO USE THE COMMODE. PATIENT EXPRESSED UNDERSTANDING. CALL LIGHT AND PERSONAL BELONGINGS ARE WITHIN REACH.
--- NOTE | 2024-07-21 11:52 | NUR ---
ORA ALEJANDRO AND ORA CALI JUST FINISHED IN THE PATIENTS ROOM. PATIENT IS AT THE BEDSIDE. PATIENT STATED NO FURTHER NEEDS AT THIS TIME. CALL LIGHT AND PERSONAL BELONGINGS ARE WITHIN REACH.
--- NOTE | 2024-07-21 11:55 | NUR ---
PT NEEDED TO USE THE COMMODE. 2 PA. PT HAD A LIQUID BM 200ML. LINENS WERE CHANGED. WIPE DOWN WAS DONE, GOWNED IS CHANGED. CALL LIGHT IS WITHIN REACH. PT DIDNT NEED ANYTHING ELSE.
--- NOTE | 2024-07-21 12:16 | NUR ---
PATIENT IS LYING IN BED AND WATCHING TV. RESPIRATIONS ARE EVEN AND UNLABORED. PATIENT IS SITTING IN THE RECLINER AT BEDSIDE. PATIENT EDUCATED THAT SURGERY CREW SHOULD BE UP IN A FEW MINUTES TO TAKE HIM DOWN. PATIENT AND FAMILY EXPRESSED UNDERSTANDING. PATIENT STATED NO FURTHER NEEDS AT THIS TIME. CALL LIGHT AND PERSONAL BELONGINGS ARE WITHIN REACH.
[2024-07-21] MEDS ORDERED: CARVEDILOL6.25 MG PO (12:17)
[2024-07-21] MEDS ORDERED: TORSEMIDE10 MG PO (12:17)
--- NOTE | 2024-07-21 12:18 | NUR ---
MED REC COMPLETE
[2024-07-21] MEDS ORDERED: propofoL 200 MG/20 ML VIAL ONE (12:27)
[2024-07-21] MEDS ORDERED: LIDOCAINE HCL 2% 5 ML SDV ONE (12:27)
--- NOTE | 2024-07-21 12:42 | NUR ---
PATIENT LEFT THE FLOOR AT THIS TIME WITH OR STAFF AT THIS TIME.
--- NOTE | 2024-07-21 13:30 | NUR ---
PATIENT REMAINS OFF THE FLOOR AT THIS TIME.
--- NOTE | 2024-07-21 13:35 | NUR ---
H&P SENT TO [facility]
--- NOTE | 2024-07-21 13:38 | NUR ---
07/21/24 1338 Sheets,Carolyn 1308 PT ARRIVED TO PACU ON 4L NC, PT COUGHIING AND SUCTION USED. CLEAR SCANT SECRETIONS NOTED. PT EYES CLOSED AND DOESNT ANSWER QUESTIONS. RESP EVEN AND UNLABORED, BUT INCREASED RATE. 1321 PT WAKES AND EYES OPEN. PT REORIENTED TO PACU AND DENIES PAIN AND NAUSEA. PT ENOURAGED TO PASS GAS AND PT PASSING GAS OFFTEN. O2 TURNED OFF. 1330 REPORT TO IVANNA HICKEY. CARE TRASNFERED AT THIS TIME.
[2024-07-21] MEDS ORDERED: CHOLESTYRAMINE P4 GM PO (14:08)
[2024-07-21] MEDS ORDERED: ONDANSETRON4 MG/2 M1 IV (14:09)
[2024-07-21] MEDS ORDERED: ACETAMINOPHEN500 MG PO (14:09)
[2024-07-21] MEDS ORDERED: CHOLESTYRAMINE 4 GM PACK PO SCH (14:15)
--- NOTE | 2024-07-21 14:25 | NUR ---
PATIENT ARRIVED BACK TO THE UNIT AT THIS TIME. REPORT RECEIVED FROM IVANNA HICKEY FROM PACU. VITAL SIGNS TAKEN AND DOCUMENTED IN THE CHART. PATIENT REPORTED PAIN 2/10 IN THE ABDOMEN. PATIENT IS NOT REQUESTING PAIN INTERVENTION AT THIS TIME. NO COMPLAINTS OF NAUSEA. PATIENT STATED NO FURTHER NEEDS AT THIS TIME. CALL LIGHT AND PERSONAL BELONGINGS ARE WITHIN REACH.
[2024-07-21] MEDS ORDERED: ONDANSETRON HCL4 MG PO (14:28)
--- NOTE | 2024-07-21 15:05 | NUR ---
DISCHARGE INSTRUCTIONS REVIEWED WITH THE PATIENT AND FAMILY AT THIS TIME. PATIENT SIGNED THE DISCHARGE FORM. IV REMOVED WITH THE CATHETER TIP INTACT. PATIENT TOLERATED WELL. MADHAVI FROM PHARMACY IS NOW IN THE ROOM AT THIS TIME.
--- NOTE | 2024-07-21 21:36 | EKG ---
[facility] [address] [place] [address] Signed Atrial-sensed ventricular-paced rhythm Biventricular pacemaker detected Abnormal ECG When compared with ECG of 01-JUL-2024 12:03, Vent. rate has decreased BY 10 BPM Confirmed by Brooke Piña MD () on 07/21/2024 9:35:58 PM Electronically Signed By: BROOKE PIÑA MD 07/21/24 2136 PATIENT NAME: JEANNE MONTE Electrocardiogram DATE OF : 53 PHYSICIAN: BROOKE PIÑA MD REPORT #: [id number] REPORT IS CONFIDENTIAL AND NOT TO BE RELEASED WITHOUT AUTHORIZATION
[2024-07-22] MEDS ORDERED: CHOLESTYRAMINE378 GM PO (21:19)
== END 2024-07-21 15:40 | disposition home or self-care (01) ==
LOC: OPV-DS 14:17 → MS 16:11
PROVIDERS: ADMIT Surgery; ATTEND Surgery
PROC: 0DJD8ZZ Inspection of Lower Intestinal Tract, Via Natural or Artificial Opening Endoscopic (ICD-10-PCS; principal; 2024-07-20)
DX: K94.09 Other complications of colostomy (principal); K94.01 Colostomy hemorrhage; K57.30 Diverticulosis of large intestine without perforation or abscess without bleeding; I50.9 Heart failure, unspecified; I48.20 Chronic atrial fibrillation, unspecified; E66.01 Morbid (severe) obesity due to excess calories; Z79.01 Long term (current) use of anticoagulants; Z88.0 Allergy status to penicillin; Z88.8 Allergy status to other drugs, medicaments and biological substances; Z86.711 Personal history of pulmonary embolism; Z95.0 Presence of cardiac pacemaker
CPT/HCPCS: 36415; 74176; 80053; 85025; 93005; 93010; 96374; 96376; A9270; G0378; G0379; G0463; J2003; J2704; J7121

== ENCOUNTER 2024-07-22 21:02 | Emergency (ER) | payer BC, MEDICARE ==
[~2024-07-22] VITALS: Ht 175.3 cm; Wt 109.8 kg
[~2024-07-22 21:02] MED LIST changes: +ACETAMINOPHEN500 MG PO; +CARVEDILOL6.25 MG PO; +CHOLESTYRAMINE P4 GM PO; +ONDANSETRON HCL4 MG PO; +ONDANSETRON4 MG/2 M1 IV; +TORSEMIDE10 MG PO
--- OUTSIDE RECORDS SUMMARY | 2024-07-22 21:09 | XMS ---
PreManage Notification: JEANNE MONTE Security Pr Specialist Events No recent Security Events currently on file CRITERIA MET - [facility] - 2 Visits in 30 Days CARE PROVIDERS DNAIEL NOEL Internal Medicine Current PHONE: Unknown BENNETT MENDIOLA [facility] Current PHONE: Unknown Ariella has no Care Guidelines for this patient. Sukh VISIT COUNT (12 MO.) [address] Areli Tariq (Juan Ramon Delatorre) TOTAL 3 NOTE: Visits indicate total known visits. ED/UCC VISIT TRACKING (12 MO.) 07/22/2024 21:02 [facility] POOL TYPE: Emergency COMPLAINT: - [facility]: Emergency DIAGNOSES: - Encounter for other specified aftercare - Other skin changes - Stoma Evaluation 06/18/2024 19:30 [facility] TYPE: Emergency COMPLAINT: - ABD PAIN INPATIENT VISIT TRACKING (12 MO.) 07/20/2024 16:15 [facility] TYPE: Observation COMPLAINT: - PERISTOMAL ULCERATION 06/18/2024 21:50 [facility] TYPE: Critical Care COMPLAINT: - PERFORATED DIVERTICULITIS DIAGNOSES: - Acquired absence of other organs - Acquired absence of other specified parts of digestive tract - Allergy status to other drugs, medicaments and biological substances - Allergy status to penicillin - Bariatric surgery status - Body mass index [BMI] 36.0-36.9, adult - Calculus of kidney - Chronic atrial fibrillation, unspecified - Chronic diastolic (congestive) heart failure - Chronic kidney disease, stage 2 (mild) - Diverticulitis of large intestine with perforation and abscess without bleeding - Do not resuscitate - Gout, unspecified - Hypertensive heart and chronic kidney disease with heart failure and stage 1 through stage 4 chronic kidney disease, or unspecified chronic kidney disease - Hypokalemia - rat exterminator (current) use of anticoagulants - Morbid (severe) obesity due to excess calories - Other group home (current) drug therapy - Other specified diseases of intestine - Personal history of pulmonary embolism - Personal history of transient ischemic attack (TIA), and cerebral infarction without residual deficits - Presence of cardiac pacemaker - Unspecified mood [affective] disorder [email or web address]
[2024-07-22] MEDS ORDERED: CHOLESTYRAMINE378 GM PO (21:19)
[2024-07-22 21:47] LABS: BASOPHILS 2.8 % (0-2); EOSINOPHILS 6.2 % (0-6); HEMATOCRIT 37.1 % (35.0-50.0); HEMOGLOBIN 12.2 g/dL (12.0-18.0); LYMPHOCYTES 9.6 % (24-44); MCHC 32.7 g/dl (30-36); MCV 91.7 fl (81-99); MONOCYTES 10.1 % (0-12); NEUTROPHILS 71.3 % (39-80); PLATELET COUNT 243 K/uL (140-440); RBC 4.05 M/ul (4.3-5.7); RDW 19.6 (10.5-15.0)
[2024-07-22 22:02] LABS: ALBUMIN 3.1 g/dL (3.4-5.0); ALBUMIN/GLOBULIN RATIO 0.66 (1.1-2.4); ANION GAP 13.5 (7-21); BILIRUBIN, TOTAL 0.3 ng/dL (0.2-1.0); BUN/CREATININE RATIO 18.7 (6.0-28.6); CALCIUM 9.6 mg/dL (8.5-10.1); CREATININE, SERUM 1.39 mg/dL (0.70-1.30); POTASSIUM 3.5 mmol/L (3.5-5.1); PROTEIN, TOTAL 7.8 g/dL (6.4-8.2)
[2024-07-22 23:00] VITALS: BP 94/65
== END 2024-07-22 23:00 | disposition home or self-care (01) ==
LOC: ED 21:02
PROVIDERS: Internal Medicine
DX: K94.01 Colostomy hemorrhage (principal); I11.0 Hypertensive heart disease with heart failure; I50.9 Heart failure, unspecified; Z86.73 Personal history of transient ischemic attack (TIA), and cerebral infarction without residual deficits; Z95.0 Presence of cardiac pacemaker; Z88.0 Allergy status to penicillin; Z88.8 Allergy status to other drugs, medicaments and biological substances; Z79.899 Other long term (current) drug therapy
CPT/HCPCS: 36415; 80053; 85025; 99283

== ENCOUNTER 2024-08-10 11:06 | Inpatient (IN) | payer BC, MEDICARE ==
[~2024-08-10] VITALS: Ht 175.3 cm; Wt 111.0 kg
--- NOTE | ~2024-08-10 | DS ---
[facility] [address] [place], [place] [address] Draft ADMISSION DATE: 08/10/2024 DISCHARGE DATE: 08/18/2024 REASON FOR ADMISSION: Dehydration, dysfunctional ostomy. HISTORY OF PRESENT ILLNESS: This now 69-year-old white man is a patient of Dr. Bennett Buchanan, who has had complex past medical history with several weeks ago, having had perforated sigmoid diverticulitis with relatively small 6 x 2 inch peridiverticular abscess. Due to his underlying congestive heart failure and multiple other medical problems including chronic anticoagulation, pacemaker requirement, and other issues including morbid obesity, conservative management of the abscess was undertaken with IV antibiotics allowing for resolution of the abscess, but subsequent development of a dense obstruction of the sigmoid causing proximal colonic obstruction and small bowel obstruction. This necessitated emergency right transverse loop colostomy performed several weeks ago. This allowed for resolution of his symptoms and he has ultimately been discharged home following a brief stay at an extended care facility. He has had difficulty as a loop transverse colostomy contracted and has caused skin excoriation and other difficulties related to his morbid obesity. Usual treatment for his problem would certainly be sigmoid resection with anastomosis with resolution of his acute inflammatory process. However, given his underlying comorbidities, he was considered very high risk candidate for such an intervention. The possibility of remedy of his dysfunctional transverse loop colostomy by reestablishment of enteric flow as he has markedly improved was considered. He underwent colonoscopy by me approximately two weeks prior to admission showing patency of the sigmoid and no sign of total obstruction, but did show extensive diverticulosis. Although things were improved, it was uncertain if reestablishment of enteric flow through the colon would be appropriate. A barium enema was undertaken which showed distention of the rectum and distal sigmoid, but difficulty in region of the sigmoid and left colon causing extreme discomfort with attempts at distention of the colon. On that basis, he was deemed ineligible for reanastomosis as it would portend high hazard to the anastomosis and likely result in recurrent diverticular issues. A plan for revision of the colostomy was made. In the meantime, he has developed dehydration, excoriation of the right upper abdominal ostomy site and inability to tolerate oral intake well. On that basis, he is admitted for further evaluation and care. PHYSICAL EXAMINATION: GENERAL: An obese white man who did not look systemically toxic, but clinically dehydrated. PATIENT NAME: JEANNE MONTE DISCHARGE SUMMARY DATE OF : 53 REPORT #: [id number] PHYSICIAN: NIA GUZMÁN MD PCP: BENNETT BUCHANAN MD REPORT IS CONFIDENTIAL AND NOT TO BE RELEASED WITHOUT AUTHORIZATION [facility] [address] [place], [place] [address] Draft NECK: Trachea is midline. CHEST: Clear. HEART: Regular without murmur. HEENT: Mucous membranes were dry. ABDOMEN: Peristomal excoriation and leakage of enteric contents is noted on the right upper abdomen. The ostomy appears to be in a skin crease notable to the right side and not present on the left side. EXTREMITIES: Show no clubbing, cyanosis, or edema. HOSPITAL COURSE: The patient was fluid resuscitated and management of the ostomy and skin excoriation undertaken. The patient had been withdrawn from Eliquis and initiated on Lovenox 100 mg subcu b.i.d. as a bridge therapy approach. The only reasonable approach to his current issue contributing to his dehydration, skin excoriation, discomfort and general inability to tolerate activities of daily living was revision of the colostomy. On August 11, 2024, he underwent exploration of the right upper quadrant ostomy site. Since there is patency of the distal end of the transverse colon, it was stapled over rather than converted to a mucous fistula. The more proximal colon was dissected free, which was challenging on the basis of prior gastric bypass operation and scarring. Ultimately, he underwent replacement of the colostomy through an optimally designed ostomy position of the right abdominal wall. This required resection of the transverse colon due to inability of the transverse colon to mobilize to the right abdominal wall in any reasonable way. A drain was placed. There was some blood loss during the course of operation as would be expected. He was taken to the Intensive Care Unit postoperatively for further management. The drain was in place, has some bloody drainage. His bridge therapy was adjusted to half dose at 50 mg b.i.d. He did require 2 units of blood transfusion, which was beneficial to him from hemodynamic standpoint. The ostomy had good projection and good viability and had prompt output. Physical therapy was initiated and ultimately the drain was removed. The day prior to discharge, the right upper transverse incision concordant to prior ostomy did have some drainage and clips were removed and mucopurulent drainage was noted. The wound was then packed with plain gauze. Closure of the wound was made in an attempt to avoid additional cumbersome wound management, but would be considered unsuccessful and not surprisingly so as it was the site of his previously dysfunctional loop transverse colostomy. PATIENT NAME: JEANNE MONTE DISCHARGE SUMMARY DATE OF : 53 REPORT #: [id number] PHYSICIAN: NIA GUZMÁN MD PCP: BENNETT BUCHANAN MD REPORT IS CONFIDENTIAL AND NOT TO BE RELEASED WITHOUT AUTHORIZATION [facility] [address] [place], [place] [address] Draft By the day of discharge, he is ambulating with assistance. Has good projection and function of the colostomy. Plain gauze dressing changes to the right subcostal previous ostomy site are undertaken and able to be performed by the patient himself. The drain has been removed. FOLLOWUP PLAN: He is to return to see me in approximately 3 to 4 weeks. He has home health organized for assistance in ostomy and wound care and home physical therapy has been arranged as well. DISCHARGE DIAGNOSES: 1. Clinical dehydration related to dysfunctional right transverse emergency loop colostomy. 2. Resuscitation and subsequent revision of right loop transverse colostomy with end right colostomy, resection of transverse colon and long Meliton's pouch of left transverse colon and beyond. 3. Morbid obesity. 4. History of congestive heart failure and chronic anticoagulation use (Eliquis). 5. Anxiety disorder and depression. DISCHARGE MEDICATIONS: 1. Levaquin 500 mg p.o. daily, #5. 2. 500 mg p.o. t.i.d., #15. 3. Tylenol 500 mg two tablets p.o. q.6 hours as needed for incisional pain. He will continue his usual medications which include: 1. Buspirone 10 mg p.o. b.i.d. 2. 40 mg one tablet p.o. daily. 3. Entresto 24/26 mg one tablet p.o. b.i.d. 4. Apixaban (Eliquis) 5 mg p.o. b.i.d. 5. Farxiga 10 mg p.o. daily. 6. Tramadol 50 mg q.6 as needed for chronic pain syndrome. 7. Allopurinol 100 mg p.o. daily. 8. Melatonin 3 mg tablet at bedtime for insomnia. 9. Nystatin powder applied topically as needed. 10. Albuterol sulfate 3 mL inhalation q.3 hours as needed for shortness of breath. 11. Lorazepam 1 mg half tab p.o. b.i.d. as needed. 12. Carvedilol 6.25 mg p.o. b.i.d. 13. Torsemide 10 mg p.o. daily. 14. Zofran 4 mg 1-2 p.o. q.6 hours as needed for nausea. 15. Cholestyramine 4 g p.o. q.i.d. as needed for loose stool. PATIENT NAME: JEANNE MONTE DISCHARGE SUMMARY DATE OF : 53 REPORT #: [id number] PHYSICIAN: NIA GUZMÁN MD PCP: BENNETT BUCHANAN MD REPORT IS CONFIDENTIAL AND NOT TO BE RELEASED WITHOUT AUTHORIZATION [address] [address] Draft MD PATRICIA Oneill/MODL /[id number] cc: Bennett Buchanan MD Copies: BENNETT BUCHANAN MD ~ PATIENT NAME: JEANNE MONTE DISCHARGE SUMMARY DATE OF : 53 REPORT #: [id number] PHYSICIAN: NIA GUZMÁN MD PCP: BENNETT BUCHANAN MD REPORT IS CONFIDENTIAL AND NOT TO BE RELEASED WITHOUT AUTHORIZATION
[~2024-08-10 11:06] MED LIST changes: +CHOLESTYRAMINE378 GM PO
[2024-08-10 12:26] VITALS: BP 88/59
[2024-08-10 12:29] LABS: EOSINOPHILS 6.7 % (0-6); HEMATOCRIT 40.5 % (35.0-50.0); HEMOGLOBIN 13.4 g/dL (12.0-18.0); LYMPHOCYTES 13.5 % (24-44); MCH 30.5 (27-36); MCHC 32.9 g/dl (30-36); MCV 92.5 fl (81-99); MONOCYTES 9.2 % (0-12); NEUTROPHILS 69.6 % (39-80); PLATELET COUNT 234 K/uL (140-440); RBC 4.38 M/ul (4.3-5.7); RDW 20.2 (10.5-15.0)
[2024-08-10] MEDS ORDERED: LACTATED RINGER'S 1,000 ML IV SCH ×2 (12:30→14:45)
[2024-08-10 12:33] LABS: INR 1.04 (0.80-1.30); PROTIME 13.5 Sec (11.2-14.2)
[2024-08-10 12:37] LABS: PARTIAL THROMBOPLASTIN TIME 33.3 Sec (22.9-41.3)
[2024-08-10 12:38] LABS: ALBUMIN 3.4 g/dL (3.4-5.0); ALBUMIN/GLOBULIN RATIO 0.83 (1.1-2.4); ANION GAP 17.6 (7-21); BILIRUBIN, TOTAL 0.4 ng/dL (0.2-1.0); BUN/CREATININE RATIO 15.67 (6.0-28.6); CALCIUM 9.9 mg/dL (8.5-10.1); CREATININE, SERUM 1.34 mg/dL (0.70-1.30); POTASSIUM 3.6 mmol/L (3.5-5.1); PROTEIN, TOTAL 7.5 g/dL (6.4-8.2)
--- NOTE | 2024-08-10 13:19 | NUR ---
PT ARRIVES TO MED-SURG VIA WHEELCHAIR ESCORTED BY AT 1111. PT UNDRESSES WITH ASSIST OF SPOUSE. GOWN DONNED. STANDING WEIGHT OBTAINED, VSS. 20G IV ESTABLISED IN RFA, PT TOLERATES THIS WELL. LR CONTINUOUS INFUSION STARTED AT 100 ML/HR. LABS DRAWN WITH IV STARTED AND SENT TO LAB. NOTED COLOSTOMY IN LLQ, APPLIED ARRIVES REINFORCED WITH ABD PADS. PT ORIENTED TO ROOM, BED CONTROLS, CALL LIGHT AND PHONE. PHYSICAL ASSESSMENT AND ADMISSION ASSESSMENT COMPLETE. PT RESTS IN BED, EATS CLEAR LIQUID MEAL, SPOUSE IN ROOM. PT DENIES PAIN OR DISCOMFORT AT THIS TIME.
[2024-08-10 13:20] VITALS: BP 97/61
[2024-08-10] MEDS ORDERED: metroNIDAZOLE 250 MG TAB PO SCH ×2 (14:00→15:00)
[2024-08-10] MEDS ORDERED: NEOMYCIN SULFATE 500 MG TAB PO SCH ×2 (14:00→15:00)
[2024-08-10] MEDS ORDERED: ENOXAPARIN SODIUM 100 MG/ML SYR SUB-Q ONE (14:30)
[2024-08-10] MEDS ORDERED: POLYETHYLENE GLYCOL 3350 BOTTLE PO ONE ×2 (14:30→15:00)
[2024-08-10] MEDS ORDERED: ACETAMINOPHEN 500 MG TAB PO PRN (14:45)
[2024-08-10] MEDS ORDERED: KETOROLAC TROMETHAMINE 30 MG/ML VIAL IV PRN (14:45)
[2024-08-10] MEDS ORDERED: ondansetron HCL 4 MG/2 ML VIAL IV PRN (14:45)
[2024-08-10] MEDS ORDERED: busPIRone HCL 5 MG TAB PO SCH (14:48)
--- NOTE | 2024-08-10 14:48 | NUR ---
DR. GUZMÁN IN ROOM TO SEE PT. SCD'S APPLIED FROM KNEES TO ANKLES BLE. MIRALAX WITH GATORADED RECEIVED, PT ENCOURAGED TO DRINK.
[2024-08-10] MEDS ORDERED: LORazepam 1 MG TAB PO SCH (14:49)
[2024-08-10] MEDS ORDERED: carvediloL 6.25 MG TAB PO SCH (14:49)
[2024-08-10] MEDS ORDERED: MELATONIN 3 MG TAB PO PRN (15:00)
[2024-08-10] MEDS ORDERED: TRAMADOL HCL 50 MG TAB PO PRN (15:00)
[2024-08-10] MEDS ORDERED: ENOXAPARIN SODIUM 60 MG/0.6 ML SYR SUB-Q ONE ×2 (15:00→22:00)
--- NOTE | 2024-08-10 15:53 | NUR ---
MED REC COMPLETE
[2024-08-10 17:26] VITALS: BP 101/64
--- NOTE | 2024-08-10 17:30 | NUR ---
PT HAS LOOP COLOSOTOMY IN [facility], APPLIANCE IS LEAKING. SPOUSE REPORTS THERE HAS BEEN TROUBLE WITH IT LEAKING SINCE IT WAS ESTABLISHED. APPLIANCE REMOVED. OSTOMY IS OVAL/SLIT LIKE IN SHAPE. STOMA IS BEEFY RED AND RETRACTED BELOW THE SKIN. THE MUCOSAL CUTANEOUS JUNCTIONS APPEARS TO BE INTACT. PERISTOMAL SKIN BREAKDOWN NOTED AT 4:00 TO 7:00 CLOCK POSITIONS, SKIN IS DENUDED BUT NOT DRAINING. OSTOMY IS LOCATED IN SKIN FOLD. PERIWOUND SKIN CLEANSED WITH NS AND PATTED FOLLOWED BY SKIN BARRIER SPRAY AND ALLOWED TO DRY. ATTEMPTED TO APPLY TRADITIONAL 2 PIECE APPLIANCES THIS WAS THE ONLY OSTOMY SUPPLIES AVAILABLE. THIS DID NOT WORK AND LEAKED. ALTERNATIVELY DUODERM EXTRA THIN HYDROCOLLOID DRESSING APPLIED TO PERISTOMAL SKIN UP TO THE STOMA EDGES. PUREWICK DRESSING THEN APPLIED AND DRESSING EDGES RE-ENFORCED WITH DOUDERM EXTRA THIN DRESSING. LOW INTERMITTENT WALL SUCTION APPLIED VIA PUREWICK DRESSING TO COLLECT HIGH OUTPUT OF STOMA DURING THIS BOWEL PREP. DRESSING REMAINS INTACT, NOT LEAKING AT THIS TIME. PT TOLERATED WELL. EFFLUENT IS CLEAR AND BROWN AT THIS TIME.
--- NOTE | 2024-08-10 19:28 | NUR ---
RECEIVED REPORT FROM IVANNA GALINDO. PT RESTING IN BED, HAS FINISHED BOWEL PREP. OSTOMY DRNG BAG TO SXN CDI. DENIES ANY OTHER NEEDS OR CONCERNS AT THIS TIME. CALL LIGHT WITHIN REACH.
[2024-08-10 20:24] VITALS: BP 92/62
--- NOTE | 2024-08-10 20:30 | NUR ---
PT RESTING IN BED. DENIES PAIN. B/P MD CHANCE AWARE. LSC DIM TO BASES, DB & C ENCOURAGED. HRR. BTA, ABD OBESE. WILL BE NPO AT MIDNIGHT FOR PROCEDURE TOMORROW. COMPLETED BOWEL PREP, OSTOMY OUTPUT LIQUID BROWN IN LARGE AMTS. OSTOMY TO LOW INT SXN. ABD SKIN UNDER OSTOMY BAG REDDENED AND MACERATED. SOFT CLOTH PLACED BETWEEN BAG AND SKIN FOR PROTECTION. RFA IV INFUSING LR AT INCREASED RATE OF 125MLS/HR. DENIES ANY FURTHER NEEDS AT THIS TIME.
--- NOTE | 2024-08-10 20:33 | NUR ---
DR. GUZMÁN NOTIFIED OF SOFT B/P, 92/ AND HR 75. HS CARVEDILOL HELD. RECEIVED ORDERS TO INCREASE LR TO 125MLS/HR AND TO PLACE A NPO ORDER FOR MIDNIGHT.
--- NOTE | 2024-08-10 20:46 | NUR ---
ORDERS UPDATED PER PRIMARY RN REQUEST: pt NPO AT MIDNIGHT AND IV FLUIDS-LR INCREASED TO 125MLS/HR. SEE NOTE BETWEEN PRIMARY RN AND MD.
[2024-08-10] MEDS ORDERED: ENOXAPARIN SODIUM 60 MG/0.6 ML SYR SUB-Q SCH (21:00)
[2024-08-10 21:19] VITALS: BP 92/62
--- NOTE | 2024-08-10 22:47 | NUR ---
PT AWAKE, SLEEPING BETWEEN CARE. 2200 & 2300 MEDS ADMINISTERED PER EMAR. OSTOMY OUTPUT EMPTIED, URINAL EMPTIED. NO OTHER NEEDS AT THIS TIME.
[2024-08-11] VITALS (14 sets, daily range): BP systolic 88–110; BP diastolic 59–74
--- NOTE | 2024-08-11 00:20 | NUR ---
PT SLEEPING, APPEARS COMFORTABLE. IVF INFUSING. NPO. OSTOMY OUTPUT SLOWING.
--- NOTE | 2024-08-11 01:33 | NUR ---
TELEVISION INSPECTOR OBTAINED VITALS AND I&O. PT STATES NO NEEDS AT THIS TIME. CALL LIGHT WITHIN REACH.
--- NOTE | 2024-08-11 02:02 | NUR ---
PT SLEEPING SOUNDLY. APPEARS COMFORTABLE.
--- NOTE | 2024-08-11 04:45 | NUR ---
PT SLEEPING SOUNDLY. APPEARS COMFORTABLE.
--- NOTE | 2024-08-11 05:33 | NUR ---
CARTON GLUING MACHINE OPERATOR OBTAINED VITALS AND OUTPUT. PT SUCTION CANNISTER EMPTIED. PT STATES NO FURTHER NEEDS AT THIS TIME. CALL LIGHT WITHIN REACH.
[2024-08-11] MEDS ORDERED: CEFAZOLIN SODIUM 2 GM/20 ML SYR IV SCH ×3 (07:00→22:00)
--- NOTE | 2024-08-11 07:20 | NUR ---
PT RESTING IN BED WITH EYES CLOSED AND RESPIRATIONS EVEN AND UNLABORED. CALL LIGHT WITHIN REACH.
--- NOTE | 2024-08-11 08:01 | NUR ---
PATIENT IN BED AT THIS TIME. BUDGET ENGINEER AND RN CHANGED PATIENTS BED SHEETS AND PROVIDED PATIENT WITH SURGICAL WIPEDOWN. CALL LIGHT PUSHPA ALCOCER, NO FURTHER NEEDS AT THIS TIME.
--- NOTE | 2024-08-11 08:03 | NUR ---
ASSESSMENT, SURGICAL WIPE DOWN AND LINEN CHANGE COMPLETE. PT HAS COLOSTOMY DRAINING BROWN/TEA COLORED STOOL WITH MALE PUREWICK ATTACHED TO SUCTION. PT DENIES PAIN AT THIS TIME AND HAS NO REQUESTS AT THIS TIME. CALL LIGHT WITHIN REACH.
--- NOTE | 2024-08-11 09:00 | NUR ---
MORNING MEDICATIONS HELD BECAUSE OF NPO STATUS FOR SURGERY
--- NOTE | 2024-08-11 09:38 | NUR ---
PT RESTING IN BED, AT BEDSIDE AND CALL LIGHT WITHIN REACH. NO REQUESTS AT THIS TIME.
--- NOTE | 2024-08-11 09:53 | NUR ---
PATIENT IS IN BED AT THIS TIME. COMMUNICATIONS BILLING ANALYST CHARTED VITALS AND O'S. CALL LIGHT WITHIN REACH, NOTHING ELSE NEEDED AT THIS TIME.
--- NOTE | 2024-08-11 10:20 | NUR ---
DR GUZMÁN IN TO SEE PT AND DISCUSS POC WITH PT AND FAMILY.
--- NOTE | 2024-08-11 10:39 | NUR ---
UR CLINICAL REVIEW: [facility] [place], MEETS INPT FOR BOWEL SURGERY WITH OSTOMY NEED FOR REVISION OF PREVIOUS OSTOMY DUE TO DYSFUNCTIONAL OSTOMY WITH BLEEDING STOMAL SITE AND PERSISTENT DIVERTICULAR DISEASE OF SIGMOID COLON, DEYDRATION REQUIRING IV FLUIDS [facility] INPT 08/10/2024 @ 1401 ORDER MATCHES REG AUTH PENDING CLINICAL REVIEW. CLINICALS FAXED VIA [employer]. AUTH # [id number] DC PLAN PENDING FURTHER EVAL AND TREAT 08/14/24
--- NOTE | 2024-08-11 11:17 | NUR ---
PT NOT AVAILABLE FOR VISIT. PROVIDED PRAYER.
--- NOTE | 2024-08-11 11:20 | NUR ---
PT TO OR WITH OR STAFF.
[2024-08-11] MEDS ORDERED: DEXAMETHASONE SOD PHOS 4 MG/ML VIAL ONE ×3 (11:54→17:57)
[2024-08-11] MEDS ORDERED: LIDOCAINE HCL 2% 5 ML SDV ONE ×2 (11:54→17:57)
[2024-08-11] MEDS ORDERED: ROCURONIUM BROMIDE 50 MG/5 ML SYR ONE ×3 (11:54→15:06)
[2024-08-11] MEDS ORDERED: ACETAMINOPHEN 1,000 MG/100 ML VIAL ONE (11:54)
[2024-08-11] MEDS ORDERED: SUCCINYLCHOLINE IN 0.9% NACL 200 MG/10 ML SYRINGE ONE (11:54)
[2024-08-11] MEDS ORDERED: SUGAMMADEX SODIUM 200 MG/2 ML ML ONE (11:54)
[2024-08-11] MEDS ORDERED: LIDOCAINE HCL 2% 20 MG/ML VIAL INJ ONE (11:55)
[2024-08-11] MEDS ORDERED: fentaNYL citrate 100 MCG/2 ML VIAL ONE ×2 (11:55→13:38)
[2024-08-11] MEDS ORDERED: propofoL 200 MG/20 ML VIAL ONE (11:56)
[2024-08-11] MEDS ORDERED: KETAMINE in NS 50 MG/5 ML SYR ONE (11:57)
[2024-08-11] MEDS ORDERED: metroNIDAZOLE/SODIUM CHLORIDE 500 MG/100 ML PIGGYBACK IV SCH ×2 (12:00→22:00)
[2024-08-11] MEDS ORDERED: LACTATED RINGER'S 1,000 ML IV ONE (13:14)
[2024-08-11] MEDS ORDERED: PROCHLORPERAZINE EDISYLATE 10 MG/2 ML VIAL IV PRN ×2 (13:45→16:45)
[2024-08-11] MEDS ORDERED: ondansetron HCL 4 MG/2 ML VIAL IV PRN (13:45)
[2024-08-11] MEDS ORDERED: IBLOOD GLUCOSE TEST STRIP 1 EA TEST VI PRN (13:45)
[2024-08-11] MEDS ORDERED: fentaNYL citrate 50 MCG/ML SDV IV PRN (13:45)
[2024-08-11] MEDS ORDERED: NALOXONE HCL 0.4 MG SYR IV PRN (13:45)
[2024-08-11] MEDS ORDERED: droPERidol 5 MG/2 ML VIAL IV PRN (13:45)
[2024-08-11] MEDS ORDERED: HYDROmorphone HCL 1 MG/ML SYR IV PRN (13:45)
[2024-08-11] MEDS ORDERED: Ropivacaine HCl 0.5% 30 ML VIAL ONE ×2 (14:44→17:57)
[2024-08-11] MEDS ORDERED: SODIUM CHLORIDE 0.9% 20 ML IV ONE ×2 (14:44→17:57)
--- NOTE | 2024-08-11 15:30 | NUR ---
Spoke with Joan, pt , as he remains in surgery. They cont. to live in their home. O steps. Pt has multiple pieces of DME. OT is requesting a trapeze as pt is unable to move himself in bed and it is difficult for family to get him out of bed. Pt is able to walk with a bariatric walker in the home a short distance. Per they have had a very difficult time with pts ostomy leaking up to multiple times per day. Pt uses [facility] PT/OT/Bathaid and will resume on dc. stating the only need is a trapeze. She had attempted to obtain through insurance but were denied and told they would have to pay $400 oop. I asked if she would like me to attempt to run it through a DME company and she would like to use [employer]. I called Jason and they out of stock. I will request orders from Dr. Forte. I called [facility] and they will fax the notes stating need.
--- NOTE | 2024-08-11 16:31 | NUR ---
report from med surg selena rn - pt belongings moved to 129 for post op care. family aware of transition.
--- NOTE | 2024-08-11 16:36 | NUR ---
Spoke with Dr. Forte and received rx and note stating need for pt to have Trapeze as pt has mobility issues in bed. Will fax chart to Jason.
--- NOTE | 2024-08-11 17:09 | EKG ---
[facility] [address] [facility] [place] [address] Signed Poor data quality, interpretation may be adversely affected Atrial-sensed ventricular-paced rhythm Biventricular pacemaker detected Abnormal ECG When compared with ECG of 21-JUL-2024 05:19, Vent. rate has increased BY 3 BPM Confirmed by Aj Ko DO ([id number]) on 08/11/2024 5:09:04 PM Electronically Signed By: AJ KO DO 08/11/24 1709 PATIENT NAME: JEANNE MONTE ERICK Electrocardiogram DATE OF : 53 PHYSICIAN: AJ KO DO REPORT #: [id number] REPORT IS CONFIDENTIAL AND NOT TO BE RELEASED WITHOUT AUTHORIZATION
[2024-08-11 17:33] LABS: BASOPHILS 0.2 % (0-2); EOSINOPHILS 0.1 % (0-6); HEMATOCRIT 34.9 % (35.0-50.0); HEMOGLOBIN 11.5 g/dL (12.0-18.0); LYMPHOCYTES 3.4 % (24-44); MCH 30.7 (27-36); MCHC 32.9 g/dl (30-36); MCV 93.2 fl (81-99); MONOCYTES 4.9 % (0-12); NEUTROPHILS 91.4 % (39-80); PLATELET COUNT 217 K/uL (140-440); RBC 3.74 M/ul (4.3-5.7); RDW 20.1 (10.5-15.0)
[2024-08-11 17:46] LABS: ALBUMIN 2.8 g/dL (3.4-5.0); ALBUMIN/GLOBULIN RATIO 0.85 (1.1-2.4); ANION GAP 15.1 (7-21); BILIRUBIN, TOTAL 0.4 mg/dL (0.2-1.0); BUN/CREATININE RATIO 13.33 (6.0-28.6); CALCIUM 9.4 mg/dL (8.5-10.1); CREATININE, SERUM 1.35 mg/dL (0.70-1.30); POTASSIUM 4.1 mmol/L (3.5-5.1); PROTEIN, TOTAL 6.1 g/dL (6.4-8.2)
--- NOTE | 2024-08-11 17:55 | NUR ---
emptied casa 25 ml dark red fluid out, urine obrien emptied 15 ml clear yellow - recorded in i/o. abd site wnl surgical wound with small amt of red drainage on anterier acticote surgical dressing unchanged. casa site to rlq wnl, and new ostomy and stoma wnl. pink. pt on room air, and iv fusing in r arm wnl. call light is hand held per pt prefrence and in hand. denies needs.
[2024-08-11] MEDS ORDERED: ePHEDrine sulfate 50 MG/ML AMP ONE (17:57)
--- NOTE | 2024-08-11 18:00 | NUR ---
WATER RESOURCE CONSULTANT AT BEDSIDE, AWARE OF URINE OUTPUT AND VITALS OF LAST HOUR, PT WOULD LIKE ANOTHER BLOCK FOR PAIN CONTROL. WATER RESOURCE CONSULTANT WILL RETURN.
--- NOTE | 2024-08-11 18:13 | NUR ---
08/11/24 1813 Lilia Gallegos 1610- PT ARRIVES TO PACU, SUPINE AND REACTIVE TO STIMULUS. BREATHING EVEN AND NON LABORED, 6L O2 PER MASK. CHAUDHARI CATHETER IN PLACE DRAINING CLEAR YELLOW URINE, EARNESTINE DRAIN IN PLACE DRAINING ERICA BLOOD. LR INFUSING TO RFA IV. ALL MONITORS IN PLACE. 1619- PT REPORTS FEELING "WOOZIE" AND A LITTLE NAUSEATED. WILL MEDICATE PER ORDERS. PT DENIES PAIN. PT MOVED TO 2L PER NC, TOLERATING WELL. 1630- PT CONTINUES TO REPORT FEELING "WOOZIE", DOESN'T FEEL LIKE HE IS GOING TO VOMIT. PT REPORTS HE IS STARTING TO FEEL WHERE THE SURGERY HAPPENED BUT TOLERABLE. 1642- PT REPORTS PAIN IS NOW 5/10 AND WORSENING, PT REQUESTS PAIN MEDICATION. 1647- FENTANYL GIVEN PER ORDERS. TYRON ELECTRONIC WARFARE OFFICER AT BEDSIDE TO ASSESS BLOCK COVERAGE. PT REPORTS THE FENTANYL HAS TAKEN CARE OF THE PAIN AND JUST FEELING LIKE HE IS FLOATING. TYRON WILL REASSESS PT PRIOR TO LEAVING FOR A POSSIBLE ADDITIONAL BLOCK. 1700- PT REPORTS SOME DISCOMFORT TO ABD, BUT TOLERABLE. STILL "FLOATING", DENIES NAUSEA. PT TO GO TO ICU. 1710- PT TAKEN TO ROOM 129 IN ICU, PT DROWSY BUT ANSWERS QUESTIONS. NO SIGNS OF DISTRESS. DRESSINGS AND EARNESTINE DRAIN ASSESSED AT BEDSIDE WITH HALEY GONCALVES. CHAUDHARI CATHETER IN PLACE WITH CLEAR YELLOW URINE. SALINE LOCK TO RFA. REPORT TO HALEY GONCALVES AT BEDSIDE, FAMILY PRESENT. CARE OF PT TURNED OVER AT THIS TIME.
--- NOTE | 2024-08-11 18:22 | NUR ---
THIS RN ASSISTED WITH BLOCK. ASSISTED WITH PILLOW ON (R) SIDE, PT PRIOR TO BLOCK STATES THAT PAIN IS CURRENTLY ON/OFF 5/10 BUT TOLERABLE. PT STATES POST BLOCK PAIN IS ABOUT 2/10. PT DRIFTS OFF TO SLEEP POST-BLOCK. PILLOW REMOVED POST BLOCK, HOB SLIGHTLY ELEVATED PER PATIENT REQUEST. POST VITALS STABLE. CALL LIGHT WITHIN REACH, DENIES ANY NEEDS AT THIS TIME.
--- NOTE | 2024-08-11 18:44 | NUR ---
brought pt own home meds of krystin and vilazodone -placed in med room locked - in pt own med 129.
--- NOTE | 2024-08-11 19:45 | NUR ---
ROUNDING IN PATIENT, HE REPORTS PAIN 3/10 AND THAT IS TOLERABLE FOR HIM. HE IS ALERT AND ORIENTED ON ROOM, AIR CHAUDHARI PATENT. LUNGS ARE CLEAR OF DIM. SACHA PATIENT'S AT BEDSIDE.
--- NOTE | 2024-08-11 20:13 | NUR ---
SON SIDDHARTHA AND FAMILY INTO VISIT PATIENT AT THIS TIME.
--- NOTE | 2024-08-11 21:30 | NUR ---
PHONE CALL FROM , NEW ORDERS FOR ABX TO START NOW.
--- NOTE | 2024-08-11 21:38 | NUR ---
PATIENT TURNED TO REMOVED ALBA SLIDER SHEET OUT FROM UNDER HIM AND REPOSITION. PATIENT TOLERATED WELL, HE DID NOTED PAIN 4/10, TORDOL ADMINISTERED PRN. HS MEDICATIONS ADMINISTERED
--- NOTE | 2024-08-11 21:55 | NUR ---
TYRON CAMPBELL CRNA CALLED FOR UPDATE ON PATIENTS V/S AND I/O. UPDATE GIVEN.
--- NOTE | 2024-08-11 23:29 | NUR ---
THIS RN IN ROUND TO ROUND, PATIETN SLEEPING, ALERT TO RN AT BEDSIDE CHECKING EARNESTINE DRAIN, AND COLOSTOMY APPLIANCE. PATIENT ASKED FOR A DRINK OF WATER, PROVIDED. PATIENT ASSESSMENT COMPLETE NO NEW CONCERNS AT THIS TIME. URINE OUT HAS BEEN 25ML/HOUR THE LAST TWO HOURS.
[2024-08-12] VITALS (28 sets, daily range): BP systolic 76–109; BP diastolic 45–70
--- NOTE | 2024-08-12 01:04 | NUR ---
PATIENT CALLED NURSE STATION WITH CALL LIGHT TO ASK FOR MORE SPRITE, PROVIDED. THEN PATIENT COLOSTOMY APPLIANCE ASSESSED, NOTED TO HAVE TRACE AMOUNT OF SEROUS-SANGUINEOUS COLOR FLUID NOTED AT BOTTOM OF APPLIANCE COLLECTION BAG. EARNESTINE HAS SMALL AMOUNT OF SANGUINEOUS DRAINAGE. PATIENT REPORTS 5/10 PAIN ULTRAM PRN PROVIDED, PATIENT SAID, "THAT WORKED LAST TIME." PATIENT REPOSITIONED TO LEFT SIDE WITH TWO PILLOWS TO OFF SET PRESSURE ON HIS BACK SIDE. PATIENT REPORTS COMFORTABLE FOR NOW, NO OTHER REQUESTS. CALL LIGHT IN REACH, SCDS ON, IV FLUID INFUSING WNL, IV SITE WNL.
--- NOTE | 2024-08-12 02:43 | NUR ---
CALLED FOR PAIN MANAGEMENT ORDERS, PATIENT REPORTS PAIN 7/10 ABD, WOKE HIM FROM SLEEP, ALSO UPDATED PATIENT URINE OUT HAS BEEN 25ML/HOUR OVER SHIFT ON AVERAGE, NEW ORDERS FOR DILAUDID PRN
[2024-08-12] MEDS ORDERED: HYDROmorphone HCL 1 MG/ML SYR IV PRN (02:45)
[2024-08-12] MEDS ORDERED: HYDROmorphone HCL 1 MG/ML SYR ONE (02:52)
--- NOTE | 2024-08-12 03:03 | NUR ---
PATIENT ADMINISTERED 0.5MG IV DILAUDID PRN, TWO NURSE CHECK AND WASTE FOR PAIN 7/10 AT ABD POST OP
--- NOTE | 2024-08-12 03:34 | NUR ---
PATIENT RESTING QUIELTY IN BED, EYES CLOSED RESPIRATIONS 18/MIN, NO DISTRESS NOTED.
--- NOTE | 2024-08-12 05:03 | NUR ---
PATIENT ALERT AND ORIENTED, ASSESSMENT COMPLETE NO NEW CONCERNS, PATIENT REPOSITIONED, SKIN CHECK NOTED TO HAVE RED AREA GLUTEAL CLEFT, AREA IS BLANCHABLE. PATIENT ASKED FOR SPRITE, THIS IS PROVIDED, DRAINS ALL ASSESSED AND EMPTIED. PATIENT REPORTS PAIN AT THIS TIME 2/10 AND TOLERABLE.
[2024-08-12 05:46] LABS: BASOPHILS 0.1 % (0-2); EOSINOPHILS 0.1 % (0-6); HEMATOCRIT 29.6 % (35.0-50.0); HEMOGLOBIN 9.9 g/dL (12.0-18.0); LYMPHOCYTES 3.4 % (24-44); MCH 31.1 (27-36); MCHC 33.5 g/dl (30-36); MCV 92.7 fl (81-99); NEUTROPHILS 92.4 % (39-80); PLATELET COUNT 194 K/uL (140-440); RBC 3.19 M/ul (4.3-5.7); RDW 19.7 (10.5-15.0)
[2024-08-12 05:50] LABS: ALBUMIN 2.6 g/dL (3.4-5.0); ALBUMIN/GLOBULIN RATIO 0.79 (1.1-2.4); ANION GAP 16.1 (7-21); BILIRUBIN, TOTAL 0.3 mg/dL (0.2-1.0); BUN/CREATININE RATIO 12.66 (6.0-28.6); CALCIUM 8.9 mg/dL (8.5-10.1); CREATININE, SERUM 1.5 mg/dL (0.70-1.30); POTASSIUM 4.1 mmol/L (3.5-5.1); PROTEIN, TOTAL 5.9 g/dL (6.4-8.2)
--- NOTE | 2024-08-12 06:00 | NUR ---
RN ROUNDING, PATIENT SLEEPING, ALERT TO RN ADMINISTERING SCHEDULED ABX, PATIENT REPORTS HIS OAIN IS 2-3/10 AT HIS OSTOMY, HE REPORTS THIS IS MANAGEABLE. THIS RN TOLD PATIENT, "IF IT GETS WORSE AND YOU WANT PAIN MEDICATION CALL ME." CALL LIGHT IN REACH. PATIENT HAS NO FURTHER REQUESTS OR CONCERNS AT THIS TIME.
[2024-08-12] MEDS ORDERED: ENOXAPARIN SODIUM 100 MG/ML SYR SUB-Q SCH (09:00)
[2024-08-12] MEDS ORDERED: MAGNESIUM SULFATE 2 GM/50 ML BAG IV ONE (10:00)
[2024-08-12] MEDS ORDERED: VILAZODONE HCL 40 MG PO SCH (10:15)
[2024-08-12] MEDS ORDERED: SACUBITRIL/VALSARTAN 1 EACH TABLET PO SCH (10:17)
--- NOTE | 2024-08-12 11:37 | NUR ---
DR. GUZMÁN IN TO SEE PATIENT AND DISCUSS PLAN OF CARE. PATIENT TO STAY IN CCU ANOTHER DAY AND POTENTIAL TRANSFER TO MED/SURG TOMORROW. OKAY TO RESUME LOVENOX PER DR. GUZMÁN. PATIENT AND THIS RN AGREE THAT HE WILL ATTEMPT TO GET UP TO CHAIR AROUND 1400 TODAY. PT UNSURE IF HE IS STRONG ENOUGH TO STAND, BUT REASSURED HIM THAT HE WILL HELP HIM MUCH POSSIBLE. URINE OUTPUT REMAINS ABOUT 35-40 ML/HR. IVF CONTINUE AT 125 ML/HR. PT'S SACHA IN ROOM AND ALSO PRESENT DURING PHYSICIAN'S ROUND. SCDs REMAIN ON. WILL CONTINUE TO MONITOR.
--- NOTE | 2024-08-12 13:03 | HP ---
[facility] [address], [place] [address] Signed ADMISSION DATE: 08/10/2024 REASON FOR ADMISSION: Dehydration, loop transverse colostomy dysfunction and peristomal bleeding with history of congestive heart failure and persistent diverticular disease sigmoid colon (incompletely obstructive) with underlying congestive heart failure. HISTORY OF PRESENT ILLNESS: This 68-year-old obese (BMI 33.9) white man is a patient of Dr. Bennett Buchanan. He is additionally the of Joan Monte, operating room nurse it project manager. He has a complex past medical history of congestive heart failure and numerous other medical problems and was admitted by me to the hospital for acute sigmoid diverticulitis with a 2 x 6 cm porfirio-sigmoidal abscess in mid May of this year. He was hospitalized for nearly two weeks with acute perforated diverticulitis and porfirio-sigmoidal localized abscess, which was managed non operatively as he does have significant underlying comorbidities including congestive heart failure issues and obesity and so forth. With time, the abscess did resolve, but did result in a near total obstruction of the sigmoid colon for which he required a right transverse loop diverting colostomy. This allowed for resolution of his colonic and small bowel distention and he had prompt improvement. 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 He has congestive heart failure for which he takes Entresto, previous long-standing morbid obesity, a distant history of open gastric bypass operation, underlying anxiety disorder, and numerous other issues. He was discharged to an extended care facility in [place], ultimately returning home for further care at home with his . He was noted to have excoriation and dysfunction of his ostomy and was evaluated by me on July 20, 2024. Stomal ulceration and retraction of the proximal limb of the ostomy and to a degree of the distal limb was also noted. He had difficulty with transfers and skin excoriation, admission to the hospital was undertaken and CT scan repeated which showed retraction of the colostomy as might be expected and diminishment or essentially absence of porfirio-diverticular abscess, but significant diverticular disease remained in the left and sigmoid colon. It had been deemed unlikely that he would tolerate the idea of sigmoid resection and a goal had been outlined to allow for resolution of the edema and inflammation of the sigmoid and left colon and ultimately allow for reconstitution of the transverse colon. The patient has had improvement of his symptoms generally despite retracted proximal transverse colostomy limb, but at this point he is having particular problems with continuous incontinence and more recently symptoms of dehydration including excessive thirst, need for oral intake and excoriation of the ostomy itself. He is admitted on Electronically Signed By: NIA GUZMÁN MD 08/12/24 1303 PATIENT NAME: JEANNE MONTE HISTORY AND PHYSICAL DATE OF : 53 REPORT #: [id number] PHYSICIAN: NIA GUZMÁN MD PCP: BENNETT BUCHANAN MD REPORT IS CONFIDENTIAL AND NOT TO BE RELEASED WITHOUT AUTHORIZATION [facility] [address] [place] [id number] Signed that basis at this time for further management. Quite notably, he recently underwent a retrograde study through the rectum of the sigmoid and left colon. This showed good distention of the rectum and the distal-most rectosigmoid, but still narrowing of the sigmoid and left colon related to diverticular disease for which a takedown of the colostomy would unlikely be successful and more particularly hazardous as to anastomotic success with relative downstream obstruction. Since he does have significant dehydration at this time and other stomal problems, I have directly admitted him to the hospital for which he may require not only additional bowel preparation and optimization for operation but revision of the more proximal colostomy to allow for more time to allow the sigmoid and left colon to heal. It is acknowledged that standard therapy would be resection of the sigmoid and left colon with a coloproctostomy. However, he is deemed unlikely able to tolerate that level of intervention certainly at this time. REVIEW OF SYSTEMS: He denies any shortness of breath or chest pain at this time. He does have some soreness of the ostomy site related inflammation of the colostomy site. He is thirsty. He denies any lower extremity pain and has no shortness of breath. PHYSICAL EXAMINATION: GENERAL: Pleasant white man who does not look systemically toxic. VITAL SIGNS: Temperature was 97.6, pulse 88, blood pressure 88/59, O2 saturation on room air was 96%. HEENT: Mucous membranes are dry. Trachea is midline. CHEST: Clear. HEART: Regular at this time. ABDOMEN: Obese, but soft. The ostomy is to the right of the midline in the upper abdomen. Mucoid appearing stool contents are noted from it. A previous upper midline incision is without sign of herniation. He has no tenderness of the left lower quadrant at this time. He does not have ascites. EXTREMITIES: No clubbing, cyanosis, or edema. LABORATORY STUDIES: At admission show a white count of 6.1, hematocrit 40.5, and platelets 234,000. Chem profile notable for creatinine of 1.34, glucose of 115. AST was 13, globulin 4.1. Coag studies show a ProTime of 13.5, INR 1.04, and PTT 33.3. ASSESSMENT: I think he can be promptly resuscitated regarding his dehydration, but the underlying Electronically Signed By: NIA GUZMÁN MD 08/12/24 1303 PATIENT NAME: JEANNE MONTE HISTORY AND PHYSICAL DATE OF : 53 REPORT #: [id number] PHYSICIAN: NIA GUZMÁN MD PCP: BENNETT BUCHANAN MD REPORT IS CONFIDENTIAL AND NOT TO BE RELEASED WITHOUT AUTHORIZATION [facility] [address], [place] [address] Signed source appears to be a relatively poorly functional colostomy and on that basis, we will additionally resuscitate him from a fluid standpoint and prepare for a colostomy revision on the right transverse colon area. A mucous fistula may be most optimal, though it would appear that the remaining left colon and sigmoid are able to drain per rectum and therefore closure of the distal not the functional as his limb would probably be safe. The more proximal limb is examined and it is markedly retracted into the subcutaneous space. No doubt accounting for poor ostomy seal. It is noted that the emergency diversion of the right transverse colon did allow for resolution of small-bowel obstruction and significant colonic distention and edema of the diverted limb likely will be much improved at this point, and more likely able to be reconfigured to allow for a more functional end colostomy. It is our long-term goal that at least two more months of bowel rest of the sigmoid and left colon to allow for possible adventism of GI continuity and if not able to do so, consideration of maintenance of functional end colostomy. The next level of intervention specifically left colectomy with coloproctostomy would be an optimal approach for nearly all other patients. However, given his underlying significant medical comorbidities that may be far more hazardous overall. I have discussed all this with the patient and his . They understand fully and agree with this approach. Nia Guzmán MD JM/MODL /[id number] cc: Bennett Buchanan MD Copies: BENNETT BUCHANAN MD ~ Electronically Signed By: NIA GUZMÁN MD 08/12/24 1303 PATIENT NAME: JEANNE MONTE HISTORY AND PHYSICAL DATE OF : 53 REPORT #: [id number] PHYSICIAN: NIA GUZMÁN MD PCP: BENNETT BUCHANAN MD REPORT IS CONFIDENTIAL AND NOT TO BE RELEASED WITHOUT AUTHORIZATION
--- NOTE | 2024-08-12 14:06 | NUR ---
PATIENT READY TO TRY AND GET UP TO CHAIR. PATIENT HELPED WITH MODERATE ASSIST TO SITTING AT EDGE OF BED. PT ABLE TO STAND WITH QUITE A BIT OF EFFORT AND MINIMAL ASSIST BUT DOES ENDORSE FEELING WEAK. BP PRIOR TO STANDING WAS 95/54. ONCE STANDING, PT NOT ABLE TO MARKETING CO OP HIS FEET TO MOVE TO THE CHAIR. BLOOD PRESSURE WHILE SITTING DOWN EDGE OF BED IS 79/57 (65) AND PATIENT DENIED FEELING DIZZY, BUT FELT WEAK. PT ABLE TO STAND ONE MORE TIME WITH MORE OF AN ASSIST AND NEW DRAW SHEET PLACED UNDER PATIENT. PT THEN BACK IN BED AND RESTING. PRN PAIN MEDICATION GIVEN. BP STILL A LITTLE LOW-76/51 (61). WILL CONTINUE TO MONITOR CLOSELY. PT DID DO HIS IN BED EXERCISES WITH HIS LEGS THAT HE HAS BEEN WORKING ON AT HOME. PT NOW RESTING. PT REMAINS ON ROOM AIR.
[2024-08-12] MEDS ORDERED: SEVOFLURANE 250 ML BTL INH ONE (17:09)
--- NOTE | 2024-08-12 18:54 | NUR ---
DR. GUZMÁN BACK IN CCU AND ROUNDING ON PATIENT AGAIN. GIVEN AN END OF SHIFT UPDATE AND NOTIFIED OF LOWER BLOOD PRESSURES, U/O FOR THE DAY AND EARNESTINE DRAINAGE. NO NEW ORDERS REC'D. PT'S AND GRANDDAUGHTER ARE IN ROOM AT THIS TIME. PT STATES HE FEELS LIKE HE WILL BE READY FOR PAIN MEDICAITON SOON.
--- NOTE | 2024-08-12 20:00 | NUR ---
RN ROUNDING IN ROOM, PATIENT ALERT AND ORIENTED, DISCUSSED PLAN OF CARE AND MEDICATIONS PLAN FOR TONIGHT. ASSESSMENT COMPLETED NO NEW CONCERNS OTHER THAN TRENDING HYPOTENSION. PLAN TO HOLD COREG AND ENTRESTO FOR TONIGHT. PATIENT AGREES, PATIENT REPORTS PAIN 3/10 AND THAT IS MANAGEABLE AT THIS TIME.
--- NOTE | 2024-08-12 21:30 | NUR ---
PATIENT HS MEDICATIONS ADMINSTERED PER PLAN OF CARE. PATIENT REPORTS PAIN 6/10 AND WOULD LIKE PAIN COVERAGE, DILAUDID PRN ADMINISTERED.
--- NOTE | 2024-08-12 23:26 | NUR ---
PATIENT RESTING QUIETLY IN BED EYES CLOSED RESPIRATION RATE 18/MIN NO DISTRESS NOTED, B/P CONTINUES TO TREND LOW IT HAS.
[2024-08-13] VITALS (29 sets, daily range): BP systolic 70–93; BP diastolic 44–58
--- NOTE | 2024-08-13 00:26 | NUR ---
ROUDNING ON PATIENT FOR ASSESSMENT, PATIENT RESTING IN BED EYES CLOSED, ALERT TO RN AT BEDSIDE, PATIENT REPORTS PAIN TOLERABLE, NO NEEDS AT THIS TIME, CALL LIGHT IN REACH, PATIENT REPOSITIONED TO RIGHT SIDE. OSTOMY APPLIANCE INTACT, WNL.
--- NOTE | 2024-08-13 00:55 | NUR ---
CALLED TO UPDATE ON PATIENT HYPOTENSION CURRENT B/P 79/52 (61), SAID TO CONTINUE TO MONITOR AND CALL FOR ANY NEW CHANGES.
--- NOTE | 2024-08-13 02:01 | NUR ---
THIS RN INTO ROOM TO REPOSITION PATIENT, PATIENT REPORTS PAIN 6-7/10, 0.25MG IV DILAUDID PRN ADMINISTERED LOWER DOSE DUE TO HYPOTENSION.
--- NOTE | 2024-08-13 04:15 | NUR ---
PATIENT ALERT AND ORIENTED, HE REPORTS FEELING BLADDER FULLNESS, ASSESSED CHAUDHARI CATHETER, CHAUDHARI IS PATENT AND DRAINING, PATIENT THEN SAID, "MAYBE I WAS DREAMING IT." CHAUDHARI CARE PROVIDED, PATIENT REPOSITIONED, HE REPORTS PAIN 6/10 AND WOULD LIKE MEDICATION AT THIS TIME, TRAMADOL PRN PROVIDED. PATIENT HAS NO FURTHER REQUESTS AT THIS TIME, CALL LIGHT IN REACH.
[2024-08-13 05:26] LABS: BASOPHILS 0.2 % (0-2); EOSINOPHILS 4.7 % (0-6); HEMATOCRIT 22.3 % (35.0-50.0); HEMOGLOBIN 7.5 g/dL (12.0-18.0); LYMPHOCYTES 8.6 % (24-44); MCH 31.1 (27-36); MCHC 33.8 g/dl (30-36); MCV 92.3 fl (81-99); MONOCYTES 8.5 % (0-12); PLATELET COUNT 152 K/uL (140-440); RBC 2.42 M/ul (4.3-5.7); RDW 20.3 (10.5-15.0)
[2024-08-13 05:37] LABS: ANION GAP 10.6 (7-21); BUN/CREATININE RATIO 16.34 (6.0-28.6); CALCIUM 8.5 mg/dL (8.5-10.1); CREATININE, SERUM 1.04 mg/dL (0.70-1.30); MAGNESIUM 1.9 mg/dL (1.8-2.4); POTASSIUM 3.6 mmol/L (3.5-5.1)
--- NOTE | 2024-08-13 06:01 | NUR ---
PT CALLS TO ASK FOR PAIN MEDICATION "I'M STARTING TO HURT". DISCUSSED PAIN OPTIONS WITH PRIMARY RN ANITRA. IV TORADOL GIVEN AND AM ABX STARTED.
--- NOTE | 2024-08-13 06:09 | NUR ---
UPDATED OVER PHONE OF PATIENT H/H LAB THIS AM 7.5/22.3, GAVE ORDER TO HAVE PATIENT TYPE AND SCEENED, CROSS MATCHED FOR TWO UNTIS OF BLOOD AND TRANSFUSE BOTH UNITS WHEN READY.
--- NOTE | 2024-08-13 06:16 | NUR ---
DISCUSSED WITH PATIENT THE PLAN OF CARE WITH BLOOD TRANSFUSION, PATIENT VERBALIZED THAT HE HAS NEVER HAD BLOOD TRANSFUSED BEFORE, BUT HE IS OK WITH HAVING A TRANSFUSION.
[2024-08-13 07:03] LABS: ABO O; ANTIBODY SCREEN NEGATIVE; IS CROSSMATCH COMPATIBLE; RH POSITIVE
--- NOTE | 2024-08-13 08:23 | NUR ---
PATIENT TO GET 2 UNITS OF PRBCs THIS AM. BLOOD PRESSURES HAVE REMAINED ON THE LOWER SIDE THROUGH THE NIGHT-CURRENTLY 81/54 (62). PT SITTING UP EATING CLEAR LIQ TRAY AND TOLERATING. PT RATING HIS PAIN 3/10. CLEAR YELLOW URINE IN CHAUDHARI CATH. ASSESSMENT COMPLETE. CALL LIGHT WITHIN REACH.
--- NOTE | 2024-08-13 09:30 | NUR ---
PATIENT'S FIRST UNIT OF BLOOD STARTED AT 0908 AT 120 ML/HR FOR THE FIRST 30 ML. PT TOLERATED THIS WELL W/O ANY ADVERSE EFFECTS. BLOOD RATE TURNED UP TO 175 ML/HR AND LR INFUSION ON HOLD WHILE BLOOD TRANSFUSION GOING. PT RESTING CALMLY IN BED. WILL CONTINUE TO MONITOR.
[2024-08-13] MEDS ORDERED: MAGNESIUM SULFATE 2 GM/50 ML BAG IV ONE (10:30)
--- NOTE | 2024-08-13 10:31 | NUR ---
DR. GUZMÁN IN TO ROUND ON PATIENT AND GIVES UPDATE ON PLAN OF CARE. PT TO RECEIVE 2ND UNIT OF BLOOD AND WILL CONTINUE TO MONITOR.
--- NOTE | 2024-08-13 11:27 | NUR ---
2ND UNIT OF BLOOD STARTED AT 1116 AT THE RATE OF 120 ML/HR FOR THE FIRST 30 MLS =15 MINS. PT TOLERATING WELL. IVF CONTINUE TO BE PAUSED WHILE BLOOD INFUSING. CLEARL YELLOW URINE IN CHAUDHARI CATH PRESENT. PATIENT HAS HAD AUDIBLE GURGLES COMING FROM COLOSTOMY BAG.
--- NOTE | 2024-08-13 11:33 | NUR ---
BLOOD TRANFUSION RATE INCREASED TO 150 ML/HR. IV MAG INFUSING INTO SEPERATE IV LINE.
[2024-08-13] MEDS ORDERED: ENOXAPARIN SODIUM 60 MG/0.6 ML SYR SUB-Q SCH (11:52)
--- NOTE | 2024-08-13 14:21 | NUR ---
2nd unit OF BLOOD COMPLETE. PT TOLERATED WELL. PT'S FAMILY REMAIN IN ROOM AND ATTENTIVE TO PATIENT. PATIENT AGREEABLE TO GET UP TO EDGE OF BED AND ATTEMPT TO SIT IN CHAIR AROUND [phone]. WILL TRY AND GET LINEN CHANGED AT THE SAME TIME.
[2024-08-13 16:03] LABS: BASOPHILS 0.2 % (0-2); EOSINOPHILS 7.7 % (0-6); HEMATOCRIT 26.3 % (35.0-50.0); LYMPHOCYTES 9.4 % (24-44); MCH 31.5 (27-36); MCHC 34.3 g/dl (30-36); MCV 91.8 fl (81-99); MONOCYTES 8.1 % (0-12); NEUTROPHILS 74.6 % (39-80); PLATELET COUNT 146 K/uL (140-440); RBC 2.86 M/ul (4.3-5.7)
[2024-08-13] MEDS ORDERED: FUROSEMIDE 20 MG/2 ML VIAL IV ONE (18:00)
--- NOTE | 2024-08-13 18:04 | NUR ---
CALL PLACED TO DR. GUZMÁN TO INFORM OF CBC RESULTS FROM 1600 AND ALSO NOTIFY OF NEARLY 15 LB WEIGHT GAIN FROM ADMIT. ORDER REC'D FOR ONE TIME DOSE OF IV LASIX AND TO SALINE LOCK IVFs. PT UPDATED ON PLAN. PT NOT HUNGRY ENOUGH TO EAT ANY DINNER TONIGHT AND FEELING BLOATED.
--- NOTE | 2024-08-13 20:26 | NUR ---
PATIENT REPORTS PAIN 6/10. 0.5MG IV DILAUDID PRN ADMINISTERED. PATIENT IS ALERT AND ORIENTED.
[2024-08-13] MEDS ORDERED: ENOXAPARIN SODIUM 100 MG/ML SYR SUB-Q SCH (21:00)
[2024-08-14] VITALS (18 sets, daily range): BP systolic 81–115; BP diastolic 48–77
--- NOTE | 2024-08-14 04:36 | NUR ---
PATIENT RESTING QUIELTY IN BED, EYES CLOSED RESPIRATORY RATE 21/MIN, NO DISTRESS NOTED.
[2024-08-14 05:39] LABS: BASOPHILS 0.5 % (0-2); EOSINOPHILS 7.7 % (0-6); HEMATOCRIT 25.4 % (35.0-50.0); HEMOGLOBIN 8.7 g/dL (12.0-18.0); LYMPHOCYTES 10.1 % (24-44); MCH 31.4 (27-36); MCHC 34.1 g/dl (30-36); MCV 91.9 fl (81-99); MONOCYTES 9.9 % (0-12); NEUTROPHILS 71.8 % (39-80); PLATELET COUNT 150 K/uL (140-440); RBC 2.76 M/ul (4.3-5.7); RDW 18.9 (10.5-15.0)
[2024-08-14 05:53] LABS: ANION GAP 10.2 (7-21); BUN/CREATININE RATIO 12.94 (6.0-28.6); CALCIUM 8.5 mg/dL (8.5-10.1); CREATININE, SERUM 0.85 mg/dL (0.70-1.30); POTASSIUM 3.2 mmol/L (3.5-5.1)
--- NOTE | 2024-08-14 06:23 | NUR ---
PATIENT REPORTED 6/10 PAIN THIS AM AFTER WAKING UP, PATIENT AGREED TO TRY ULTRAM AND TYLENOL PRN THIS AM.
--- NOTE | 2024-08-14 08:09 | NUR ---
PATIENT RESTING IN BED UPON INITIAL ASSESSMENT. PT IS MORE HUNGRY THIS AM AND LOOKING FORWARD TO HIS BREAKFAST. 200 ML OUTPUT IN OSTOMY IN THE NIGHT. PT RATING PAIN 3/10. PT HOPEFUL TO ADVANCE TO SOMETHING MORE SOLID TODAY. H/H STABLE.
[2024-08-14] MEDS ORDERED: FUROSEMIDE 20 MG/2 ML VIAL IV ONE (09:30)
[2024-08-14] MEDS ORDERED: POTASSIUM CHLORIDE 20 MEQ in DEXTROSE 5% 250 ML IV SCH (09:30)
[2024-08-14] MEDS ORDERED: MAGNESIUM SULFATE 2 GM/50 ML BAG IV ONE (09:30)
--- NOTE | 2024-08-14 09:46 | NUR ---
INTO SEE PATIENT. RESTING IN BED. AT BEDSIDE. LET THEM KNOW WE ARE WORKING WITH JULIETH TO GET TRAPEZE. PATIENT UNDERSTANDING IT MAY BE OUT OF POCKET. WILL GIVE THEM AN UPDATE LATER.
[2024-08-14] MEDS ORDERED: DEXAMETHASONE SOD PHOS 4 MG/ML VIAL ONE (10:05)
[2024-08-14] MEDS ORDERED: SODIUM CHLORIDE 0.9% 20 ML IV ONE (10:05)
[2024-08-14] MEDS ORDERED: Ropivacaine HCl 0.5% 30 ML VIAL ONE (10:05)
[2024-08-14] MEDS ORDERED: LIDOCAINE HCL 2% 5 ML SDV ONE (10:08)
--- NOTE | 2024-08-14 10:15 | NUR ---
SPOKE WITH JULIETH. SACHA AT [facility], [place] SAYS GETTING THE TRAPEZE COVERED SHOULD NOT BE AN ISSUE. JUST WILL NEED A DISCHARGE SUMMARY AT TIME OF DISCHARGE STATING THE NEED OF ONE. DENIES ANY OTHER CM NEEDS AT THIS TIME.
--- NOTE | 2024-08-14 11:13 | NUR ---
INDRA ACKERMAN IN ROOM TO PLACE TAP BLOCK IN RIGHT SIDE-SEE PROGRESS NOTE. PATIENT TOLERATED WELL. PHYS THERAPY THEN IN TO SEE PATIENT AND HELPED HIM UP TO CHAIR, WHERE HE REMAINS AT THIS TIME. BED LINEN CHANGED. PT STATES THE BLOCK HELPED HIM A LOT AND WAS RELATIVELY PAIN FREE FOR THIS ACTIVITY. CHAUDHARI CATH REMAINS AND CLEAR DILUTE URINE DRAINING AFTER LASIX GIVEN. IV POTASSIUM AND IV MAG INFUSING. PT AGREEABLE TO STAY UP IN CHAIR MUCH HE CAN, AND WILL TRY TO STAY UP UNTIL LUNCH TIME. PT STATES HE IS FEELING MORE CONFIDENT ABOUT GOING HOME NOW THAT HE HAS BEEN ABLE TO GET UP.
--- NOTE | 2024-08-14 12:40 | NUR ---
PATIENT HELPED BACK TO BED AFTER SITTING IN CHAIR FOR ALMOST AN HR. PT TOLERATED 50% OF HIS REGULAR DIET LUNCH. PT HAS BEEN DIURESING WELL IN CHAUDHARI CATH. SCDs ON WHILE BACK IN BED. PT FEELING MORE CONFIDENT IN SELF AFTER MOVING WELL. 2ND POTASSIUM INFUSION STARTED.
--- NOTE | 2024-08-14 13:06 | NUR ---
VISITED DURING SPIRITUAL CARE ROUNDS. PT SUPPORTED BY IN ROOM. BOTH IN OVERALL GOOD SPIRITS; NO IMMEDIATE NEEDS. RESIDENCY PROGRAM COORDINATOR PROVIDED SUPPORTIVE PRESENC, HOSPITALITY, PRAYER, FACILITATED INTERACTION WITH THERAPY ANIMAL. PT AND EXPRESSED GRATITUDE, HOPE.
--- NOTE | 2024-08-14 14:18 | NUR ---
UR CONCURRENT REVIEW: [facility]- PER [facility] OPTIMAL RECOVERY COURSE, DOES NOT MEET GL DAY TO DUE TO INTERMITTENT HYPOTENSION AND NEED FOR INCREASED AMBULATION [facility] IN 08/10/24 AUTH# [id number]. UPDATED CLINICALS FAXED FOR REVIEW DISCHARGE TO HOME WHEN STABLE 08/16/24
--- NOTE | 2024-08-14 17:59 | NUR ---
Call light answered, patient requests gown to be changed, new pillow case as well. Ice and soda provided. BP cuff changed. Amezquita draining WNL. Pt HOB adjusted. No further needs.
--- NOTE | 2024-08-14 20:19 | OR ---
[facility] [address] [place], [place] [address] Signed DATE OF OPERATION: 08/11/2024 SURGEON: Nia Guzmán MD PREOPERATIVE DIAGNOSES: 1. Recent dehydration with dysfunctional right transverse loop colostomy. 2. Morbid obesity and multiple medical problems (congestive heart failure) et al. POSTOPERATIVE DIAGNOSES: 1. Recent dehydration with dysfunctional right transverse loop colostomy. 2. Morbid obesity and multiple medical problems (congestive heart failure) et al. PROCEDURES: 1. Mobilization of transverse right loop colostomy with transection of distal limb. 2. Mid transverse colectomy with end colostomy and extensive lysis of adhesions, prolonged, complicated, difficult). ANESTHESIA: General endotracheal, Zane Coleman CRNA and postoperative external oblique ultrasound-guided TAP blocks (right unilateral Zane Coleman CRNA). INDICATIONS: This 68-year-old white man is a patient of Dr. Bennett Buchanan. He has a complex past medical history and several weeks ago had a perforated sigmoid diverticulitis with a relatively small 6 x 2 inch peridiverticular abscess. Due to his underlying congestive heart failure and multiple other medical problems including chronic anticoagulation, pacemaker use, and other issues including morbid obesity, conservative management of the abscess was undertaken, which allowed for resolution of the abscess, but development of a dense obstruction at the sigmoid. This necessitated emergency right transverse loop colostomy, which was performed a number of weeks ago. This did allow for resolution of his symptoms and he has been at home. However, he has had difficulty as the loop transverse colostomy contracted related to his morbid obesity and has had a fair amount of peristomal excoriation and a sunken appearance. Usual treatment for his problem would certainly be sigmoid resection with anastomosis. However, given his underlying comorbidities, he has been considered a very high risk candidate for such an intervention. The possibility of remedy of his dysfunctional transverse loop colostomy by reestablishing enteric flow since he has much improved and was considered. He underwent colonoscopy by me about two weeks ago, which showed Electronically Signed By: NIA GUZMÁN MD 08/14/242018 PATIENT NAME: JEANNE MONTE OPERATIVE REPORT DATE OF : 53 REPORT #: [id number] PHYSICIAN: NIA GUZMÁN MD PCP: BENNETT BUCHANAN MD REPORT IS CONFIDENTIAL AND NOT TO BE RELEASED WITHOUT AUTHORIZATION [facility] [address], [place] [address] Signed patency of the sigmoid and no dense obstruction, but certainly did show extensive diverticulosis. Clearly, it was improved. He has had progressive issues with his ostomy including skin excoriation, peristomal bleeding, particularly given his chronic anticoagulation and so forth and it was considered that reestablishment of enteric flow without consideration for sigmoid resection would be a possibility. On that basis, he recently underwent a barium enema. This affirmed a good compliance of his rectum and rectosigmoid, but still with narrowing of his sigmoid with considerable discomfort upon distention with barium. Though it was patent, it was considered incompletely healed. On that basis, the establishment of flow with takedown of the transverse colostomy was deemed unacceptably hazardous at this time since relative obstruction would likely result in anastomotic failure or other complication. He was admitted yesterday with relative dehydration, peristomal bleeding and excoriation of his skin and progressive difficulty with his retracted ostomy and other factors. He has been fully resuscitated and now to undergo revision of the colostomy. It is my intention that the dysfunctional limb be mobilized more fully to allow for end right-sided colostomy and transection of the distal transverse colon as a long Hartmannn's pouch. The special risks of bleeding, infection, colostomy failure, and other unforeseen complications was reviewed with the patient and his family. They understand and wished to proceed. FINDINGS: Indeed, there was significant contraction of the proximal limb of the colostomy. Certainly, it was intact with the distal decompressed transverse colon. Full mobility of the transverse colon was undertaken. Mobilization of the hepatic flexure was undertaken. It was prolonged, complicated, and difficult as there was a very high hepatic flexure and he had considerable adhesions related to prior interventions including prior history of gastric bypass operation, cholecystectomy, and other interventions. Ultimately, the right colon and transverse colon was fully mobilized to allow for placement of a tension-free completely viable end colostomy in the right side of the abdomen. The transverse colon required resection to allow for mobility for the ostomy in the area previously marked as appropriate for him considering his obesity and relative inability to be flexible and other ostomy sites for optimal function. DESCRIPTION OF PROCEDURE: The patient was brought to the operating room, given a general endotracheal anesthetic. Electronically Signed By: NIA GUZMÁN MD 08/14/242018 PATIENT NAME: JEANNE MONTE OPERATIVE REPORT DATE OF : 53 REPORT #: [id number] PHYSICIAN: NIA GUZMÁN MD PCP: BENNETT BUCHANAN MD REPORT IS CONFIDENTIAL AND NOT TO BE RELEASED WITHOUT AUTHORIZATION [address] [address] Signed He underwent a full bowel prep including oral antibiotics. His ostomy appliance was removed. He had somewhat still thickened, but minimal enteric contents at the site of the ostomy. The area was clipped and prepared with a Betadine based solution and draped with an Ioban dressing. A Amezquita catheter had been placed as well. Close inspection of the ostomy site showed it to be imperceptible as regards to the proximal limb. The distal limb was visible. Using electrocautery, the mucocutaneous junction between the ostomy was incised with electrocautery and bluntly from the thick abdominal fat and subcutaneous space. Full mobility was undertaken ultimately entering the peritoneal cavity. The proximal and distal limbs of the loop transverse colostomy were well mobilized. A CHELI stapling device was used to transect the distal end to allow for more mobility. Dissection was then begun more in the right upper quadrant. All of this was done through the initial ostomy site. This incision extended laterally a bit including the fascial layer and rectus sheath and later the rectus abdominis itself. Meticulous care was made in mobilizing the transverse colon. Small bowel loops had adhesions as well and these were freed with sharp dissection. One particular enterotomy was repaired with interrupted 3-0 silk suture with good effect. Further mobility up into the hepatic flexure area showed the hepatic flexure to be surprisingly high. Using blunt electrocautery dissection, it was freed from the retroperitoneum. There appeared to be an area of prior cholecystectomy which had tethered the mesentery also. Ultimately, the right colon was more fully mobilized and brought away from the retroperitoneum. Clips were used for hemostasis as required and one area in the mesentery secured with 3-0 silk sutures for a definitive hemostasis. Once the right colon and transverse colon was fully mobilized, the previously marked site for optimal colostomy was reestablished and identified. A Elver clamp was used to grasp the skin. It was elevated and using a 10 blade, a saucerized excision of skin was undertaken forming a good circular site for colostomy. Using electrocautery, the subcutaneous tissue was divided. Ultimately, the anterior rectus sheath was incised in a cruciate incision and what appeared to be vertically running muscular fibers and the posterior sheath incised longitudinally. Using a Salvador clamp, the colon was grasped, anticipating mobilization. Unfortunately, it would not pull through without extreme tension on the transverse mesocolon. On that basis, the transverse colon required resection. Mesentery corresponding to the transverse colon was incised with electrocautery. This mesenteric vessels secured with hemostats and ligated with 0 silk ties and transverse colon transected with a CHELI stapling device and passing the transverse colon for pathology. The resulting staple line was then able to be grasped without tension and drawn through the abdominal wall. Care was taken to avoid torsion or kinking of the colonic segment. Irrigation was undertaken. Hemostasis assured with electrocautery. Copious irrigation was undertaken assuring hemostasis. Fany was applied to raw surfaces of the medial and posterior retroperitoneal dissection. The right transverse abdominal wall incision was reapproximated with running bidirectional #1 PDS suture with placement of Electronically Signed By: NIA GUZMÁN MD 08/14/242018 PATIENT NAME: JEANNE MONTE OPERATIVE REPORT DATE OF : 53 REPORT #: [id number] PHYSICIAN: NIA GUZMÁN MD PCP: BENNETT BUCHANAN MD REPORT IS CONFIDENTIAL AND NOT TO BE RELEASED WITHOUT AUTHORIZATION [facility] [address] [place] [id number] Signed interrupted Smead-Guzman internal retention sutures of the same suture. A two layer closure was undertaken including the posterior sheath and the anterior rectus sheath. Irrigation was undertaken in subcutaneous space and the skin was loosely closed with a stapling device. Plans were made for maturation of the colostomy. The withdrawn segment that had been drawn through the abdominal wall was confirmed to have no twisting or torsion of the colonic mesentery. The colon was withdrawn out of the abdomen in an impressively tension-free manner and the ostomy matured with interrupted 3-0 Vicryl suture in a technique that allowed for good projection of the ostomy. Not mentioned previously was a stab incision in the right lateral abdomen through which a 7 mm flat Filipe drain was placed into the retroperitoneal space for postoperative drainage. The drain was attached to bulb suction after being secured to the skin with nylon suture. An ostomy appliance was applied to the ostomy site. He was ultimately extubated and transferred to the recovery room in good condition. Prior to extubation a post operative right-sided unilateral extrafascial external oblique block was performed. Blood loss was estimated at 300 mL. Sponge, needle and counts were correct x3. The Amezquita catheter was left in place and noted to be draining clear urine. MD PATRICIA Oneill/MODL /[id number] cc: Bennett Buchanan MD Copies: BENNETT BUCHANAN MD ~ Electronically Signed By: NIA GUZMÁN MD 08/14/242018 PATIENT NAME: JEANNE MONTE OPERATIVE REPORT DATE OF : 53 REPORT #: [id number] PHYSICIAN: NIA GUZMÁN MD PCP: BENNETT BUCHANAN MD REPORT IS CONFIDENTIAL AND NOT TO BE RELEASED WITHOUT AUTHORIZATION
--- NOTE | 2024-08-14 20:27 | NUR ---
PATIENT ALERT AND ORIENTED SITTING UP IN BED WATCHING TV. HE REPORTS HIS PAIN 2/10 AND THAT IS TOLERABLE FOR HIM. HE VERBALIZED CONCERN, "I AM WORRIED ABOUT WHEN THE BLOCK WILL STOP WORKING." THIS RN ENCOURAGED HIM THAT IT SHOULD LAST A GOOD PORTION OF THE NIGHT, HOWEVER WE DO HAVE PAIN MANAGEMENT MEDICATIONS ORDERED NEEDED. DRAINS ASSESSED AND NO NEW CONCERNS.
--- NOTE | 2024-08-14 21:49 | NUR ---
PATIENT RESTING IN BED, EYES SLIGHTLY OPEN, SNORING NOTED, PATIENTS MOUTH OPEN SNORING NOTED, PATIENT ALERT TO VOICE OF THIS RN AT BEDSIDE. PATIENT NEURO ASSESSMENT COMPLETE NO NEW FINDINGS, PUPILS ARE NOTED TO BE 8MM, PERRLA NOTED. PATIENT REPORTS TIRED. HS MEDICATIONS ADMINISTERED. PATIENT REPORTS NO FURTHER NEEDS AT THIS TIME.
[2024-08-15] VITALS (9 sets, daily range): BP systolic 88–122; BP diastolic 47–81
--- NOTE | 2024-08-15 03:05 | NUR ---
PATIENT CALLED NURSES STATION REQUESTED JACQUES, THIS RN ASKED IF HE WOULDLIKE A SNACK, HE ASKED IF WE HAD A COOKIE. GIRL SUPERINTENDENT TRANSMISSION COOKIES HAVE BEEN AT NURSES STATION TO SHARE, PATIENT PROVIDED GIRL SUPERINTENDENT TRANSMISSION COOKIES. PATIENT HAS NO OTHER REQUESTS AT THIS TIME.
--- NOTE | 2024-08-15 05:20 | NUR ---
THIS RN ROUNDING AFTER LAB DRAW, PATIENT ALERT AND ORIENTED, AM ASSESSMENT COMPLETE, NO NEW CONCERNS, PATIENT REPORTS PAIN IS COMFORTABLE AT THIS TIME. FRESH ICE WATER PROVIDED. PATIENT VERBALIZED NO FURTHER NEEDS AT THIS TIME.
[2024-08-15 05:34] LABS: BASOPHILS 0.2 % (0-2); EOSINOPHILS 0.4 % (0-6); HEMATOCRIT 25.1 % (35.0-50.0); HEMOGLOBIN 8.6 g/dL (12.0-18.0); LYMPHOCYTES 5.7 % (24-44); MCH 31.5 (27-36); MCHC 34.3 g/dl (30-36); MCV 91.8 fl (81-99); MONOCYTES 7.8 % (0-12); NEUTROPHILS 85.9 % (39-80); PLATELET COUNT 184 K/uL (140-440); RBC 2.73 M/ul (4.3-5.7); RDW 19.1 (10.5-15.0)
[2024-08-15 05:44] LABS: ANION GAP 10.5 (7-21); BUN/CREATININE RATIO 15.85 (6.0-28.6); CALCIUM 8.3 mg/dL (8.5-10.1); CREATININE, SERUM 0.82 mg/dL (0.70-1.30); MAGNESIUM 1.9 mg/dL (1.8-2.4); POTASSIUM 3.5 mmol/L (3.5-5.1)
[2024-08-15] MEDS ORDERED: dexmedeTOMIDine HCl 200 MCG/2 ML VIAL ONE (06:56)
--- NOTE | 2024-08-15 08:12 | NUR ---
ALERT AND ORIENTED. EATING BREAKFAST. STATES NO KNOWN NEEDS FOR HOME BESIDED A TRAPEZE FOR HIS BED. PLANS TO RETURN TO HIS HOME WHEN MEDICALLY STABLE. STATES HE THINGS THAT WILL LIKELY BE TOMORROW IF HE CONTINUES TO MAKE PROGRESS.
--- NOTE | 2024-08-15 10:12 | NUR ---
FAXED ORDER, NOTES AND FACESHEE TO [facility] FOR YAKOV HUBBARD.
--- NOTE | 2024-08-15 10:38 | NUR ---
VISITED DURING SPIRITUAL CARE ROUNDS. PT APPEARED TO BE SLEEPING. DID NOT DISTURB. PROVIDED PRAYER.
--- NOTE | 2024-08-15 12:41 | NUR ---
PATIENT'S CHAUDHARI D/C AND TOLERATED WELL. PT SITTING UP AND EATING LUNCH AT THIS TIME. PT TO TRANSFER TO ROOM 109 WITHOUT TELE.
--- NOTE | 2024-08-15 13:10 | NUR ---
PT ARRIVES TO [facility] [id number] VIA BED, AWAKE AND ALERT, ON RA, SCD'S IN PLACE TO BLE FROM KNEES TO ANKLES. VERBAL BEDSIDE REPORT RECEIVED FROM IVANNA DAY. VSS. PT ORIENTED TO ROOM. CALL LIGHT AND BELONGINGS IN REACH. PT WATCHES TV. EARNESTINE IN RLQ COMPRESSED, SEROSANGUINEOUS DRAINAGE NOTED. DRESSING OVER OLD OSTOMY SITE INTACT, OLD DRAINAGE NOTED. END COLOSTOMY STOMA VISIBLE THROUGHT BAG, PINK AND MOIST. APPLIANCE INTACT. EFFLUENT PRESENT IN BAG, GREEN/BROWN AND MUSHY. PT REPORTS PAIN AT OSTOMY SITE 5/10, DESCRIBES PAIN DULL AND INTERMITTENT.
--- NOTE | 2024-08-15 13:22 | NUR ---
DILAUDID RECEIVED FOR INCISIONAL PAIN, SEE EMAR.
--- NOTE | 2024-08-15 13:50 | NUR ---
DR. GUZMÁN NOTIFIED OF OSTOMY APPLIANCE IN PLACE SINCE SURGERY, NEW ORDER RECEIVED, OKAY FOR WOUND NURSE TO CHANGE APPLIANCE, EVALUATE AND TREAT.
--- NOTE | 2024-08-15 13:50 | NUR ---
DR. GUZMÁN NOTIFIED OF OSTOMY APPLIANCE IN PLACE SINCE SURGERY, NEW ORDER RECEIVED, OKAY FOR WOUND NURSE TO CHANGE APPLIANCE, EVALUATE AND TREAT.
--- NOTE | 2024-08-15 16:29 | NUR ---
Fecal ostomy post-operative assessment. First post-op ostomy appliance change and assessment performed. Ostomy type: end colostomy with Meliton's pouch Support bridge present: No Location: Transverse , RLQ. Size: 38 mm x 51 mm Shape: oval Stoma mucosa color: pink Stoma edema: Yes Protrusion: above skin, 1 cm Lumen/os location: Center Peristomal skin condition Color: [place] Moisture: Dry Skin Integrity: Intact Skin Lesions: None Stoma Function Effluent: Yes Color: Green Consistency: mushy Volume: medium Gas: Yes Mucocutaneous junction Junction of skin/stoma: Intact % of junction separation: none Appliance: 2-piece Flat Cut-to-fit Open-tail Interlocking/Velcro No filter Appliance size: 70 mm flange Bailey [id number], Bag Bailey [id number] - 70 mm Peristoma skin cleansed with: Normal Saline and patted dry. Skin preparation: Skin barrier film Procedure Note: OLD OSTOMY APPLIANCE REMOVED. OSTOMY CLEANSED WITH NS AND PATTED DRY. SKIN BARRIER SPRAY APPLIED AND ALLOWED TO DRY. 70 MM FLANGE APPLIANCE CUT TO FIT STOMA MEASUREMENTS, FITTED UP TO STOMA EDGES. BAG ATTACHED TO FLANGE. PT TOLERATED WELL. DUE TO CLOSE PROXIMETY TO THE OSTOMY THE DRESSING OVER THE OLD OSTOMY SITE IN THE RUQ AND THE EARNESTINE DRESSING WAS CHANGED. OLD DRESSING REMOVED FROM INCISION IN RUQ. INCISION IS WELL APPROXIMATED WITH ASHLEIGH. CLEANSED WITH NS AND PATTED DRY. NEW ACTICOTE SILVER DRESSING APPLIED. OLD DRESSING REMOVED FROM EARNESTINE DRAIN. SITE CLEANSED WITH NS AND PATTE DRY. NEW DRAIN GAUZE APPLIED AND SECURED WITH TAPE. PT TOLERATED PROCEDURE WELL. PICTURES IN PAPER CHART. STENSILE CREATED FOR OSTOMY SHAPE REMAINS IN ROOM IN OSTOMY BIN FOR USE AT NEXT APPLIANCE CHANGE.
--- NOTE | 2024-08-15 17:05 | NUR ---
DISCUSSED OSTOMY CARE, ASSESSMENT, APPLIANCE APPLICATION AND EMPTYING BAG WITH SACHA PT'S SPOUSE. NEW OSTOMY PATIENT EDUCATION PACKET PROVIDED. PT AND SPOUSE AGREE REFERRAL TO [facility].
--- NOTE | 2024-08-15 17:40 | NUR ---
PATIENT IN BED AT THIS TIME. EMERGENCY DETAIL DRIVER CHARTED VITALS AND I&O'S. CALL LIGHT WITHIN REACH, NO FURTHER NEEDS AT THIS TIME.
--- NOTE | 2024-08-15 19:20 | NUR ---
REPORT RECEIVED FROM DAY SHIFT RN. PT LYING IN BED ALERT AND ORIENTED. DENIES NEEDS. WHITE BOARD UPDATED. CALL LIGHT IN REACH.
--- NOTE | 2024-08-15 20:49 | NUR ---
MULTIMEDIA PRODUCER TOOK PT'S VS, PROVIDED ICE WATER, RE-ESTABLISHED SCD'S, AND LEFT PT WITH CALL LIGHT WITHIN REACH.
--- NOTE | 2024-08-15 21:25 | NUR ---
EVENING ASSESSMENT COMPLETE. SCHEDULED MEDS ADMIN PER EMAR. PT REPORTS ABD PAIN 5/10. PRN FOR PAIN ADMIN. PT DENIES NAUSEA. BOWEL TONES ACTIVE. ABD SOFT. RLQ OSTOMY PATENT WITH 500 ML BROWN DRAINAGE. EARNESTINE RLQ WITH 25 ML SEROSANG DRAINAGE. OLD OSTOMY SITE WITH DRESSING INTACT. SMALL AMOUNT SHADOWING NOTED. PT DENIES SOB. LUNGS CLEAR THROUGHOUT. SCD'S IN PLACE. PT DENIES QUESTIONS OR CONCERNS. CALL LIGHT IN REACH.
--- NOTE | 2024-08-15 23:23 | NUR ---
PT RESTING WITH EYES CLOSED. OSTOMY CHECKED. SCANT AMOUNT BROWN DRAINAGE IN BAG. LIGHTS OUT PER PT REQUEST. NO FURTHER NEEDS.
[2024-08-16] VITALS (9 sets, daily range): BP systolic 94–98; BP diastolic 58–62
--- NOTE | 2024-08-16 00:38 | NUR ---
PT RESTING IN BED WITH EYES CLOSED. RESPIRATIONS EVEN. HOB ELEVATED. 100 ML CONCENTRATED URINE EMPTIED FROM URINAL.
--- NOTE | 2024-08-16 01:45 | NUR ---
PT RESTING IN BED WITH EYES CLOSED. RESPIRATIONS EVEN. CALL LIGHT IN REACH.
--- NOTE | 2024-08-16 03:00 | NUR ---
CALL LIGHT ANSWERED. PT REPORTS ABD PAIN 5/10. PRN FOR PAIN ADMIN PER EMAR. PT DENIES NAUSEA. ABD ASSESSMENT UNCHANGED. 2PA TO REPOSITION IN BED. PILLOW PLACED UNDER RIGHT HIP. NO FURTHER NEEDS.
--- NOTE | 2024-08-16 04:55 | NUR ---
CALL LIGHT ANSWERED. SODA PROVIDED PER REQUEST FOR DRY MOUTH. VS AND I&O OBTAINED. PT REPOSITIONED IN BED WITH PILLOW UNDER LEFT HIP. OSTOMY WITH SMALL AMOUNT LIQUID DRAINAGE. EARNESTINE RLQ WITH 15 ML SEROSANG DRAINAGE. NO FURTHER NEEDS AT THIS TIME. CALL LIGHT IN REACH.
--- NOTE | 2024-08-16 06:00 | NUR ---
PT REPORTS ABD PAIN 5/10. PRN FOR PAIN ADMIN PER EMAR. NO FURTHER NEEDS.
--- NOTE | 2024-08-16 07:41 | NUR ---
Patient in bed watching tv, no acute distress. Patient reports he slept well last night. Patient reports pain is tolerable at this time, no nausea. Patient reports he is hungry and looking forward to breakfast this morning. Encouraged patient to call if he has needs.
--- NOTE | 2024-08-16 08:03 | NUR ---
PATIENT IN BED AT THIS TIME. FIELD COIL WINDER CHARTED VITALS AND I&O'S. FIELD COIL WINDER PROVIDED PATIENT WITHI SODA, OKAYED BY RN. CALL LIGHT WITHIN REACH, NO FURTHER NEEDS AT THIS TIME.
--- NOTE | 2024-08-16 08:10 | NUR ---
PATIENT IN BED AT THIS TIME. PURE PAK MACHINE OPERATOR WENT INTO PATIENT ROOM FOR HOURLY ROUNDS. PURE PAK MACHINE OPERATOR PROVIDED PATIENT WITH SODA, OKAYED BY RN. CALL LIGHT WITHIN REACH, NO FURTHER NEEDS AT THIS TIME.
--- NOTE | 2024-08-16 10:30 | NUR ---
Pt. resting, denies needs. Received a list of supplies from Joan, , to have filled for his ostomy. Discussed with Joan, if pt has Home Health, they must pay for his supplies. If they attempt to have the supplies filled with the Rx, they will not be covered as insurance is already paying for Home Health.
[2024-08-16] MEDS ORDERED: APIXABAN 5 MG TAB PO SCH (11:47)
[2024-08-16] MEDS ORDERED: TORSEMIDE 5 MG TAB PO SCH (11:48)
--- NOTE | 2024-08-16 11:59 | NUR ---
PATIENT RESTING IN RECLINER. PATIENT REPORTS PAIN 10/05. OFFERED TYLENOL. SEE AUG. GAVE TYLENOL PO PER AUG WITH OVIDIO GONCALVES. PATIENT TOLERATED WELL. PATIENT DENIES INCREASED SOB AT THIS TIME. SPO2 PER CPOX MACHINE 91% 2L NC. PATIENT DEMONSTRATED PROPER USE OF INCENTIVE SPIROMETER. EDUCATION REINFORCED REGARDING SAFETY AND CALL LIGHT USE. CALL LIGHT IN REACH. NO FURTHER NEEDS AT THIS TIME.
[2024-08-16] MEDS ORDERED: metroNIDAZOLE 250 MG TAB PO SCH (12:00)
[2024-08-16] MEDS ORDERED: levoFLOXacin 500 MG TAB PO SCH (12:00)
--- NOTE | 2024-08-16 12:04 | PATH ---
[facility] [address] [place], [place] [address] Signed SPECIMEN(S): A PORTION OF TRANSVERSE COLON SPECIMEN SOURCE: A. PORTION OF TRANSVERSE COLON CLINICAL HISTORY: Diverting loop ileostomy FINAL PATHOLOGIC DIAGNOSIS: Portion of transverse colon: - Colonic mucosa with postsurgical changes BRP MICROSCOPIC EXAMINATION: Histologic sections of all submitted blocks are examined by light microscopy. These findings, together with the gross examination, support the pathologic diagnosis. GROSS DESCRIPTION: The specimen, labeled and designated "Ilg, portion of transverse colon," is received in formalin and consists of a 9.6 cm length of colostomy. The serosal surfaces christie-purple and slightly shaggy. Opening reveals a christie, slightly edematous mucosa with normal mucosal folds. The outlet displays a thin rim of skin surrounding exposed mucosa. No masses grossly identified. Systems Specialist sections are submitted in cassettes A1-A3. Cassette Summary: (A1) mucosal margin (A2) title insurance sales representative outlet (A3) title insurance sales representative mucosa TN (under the direct supervision of a pathologist) The Gross Description was prepared using a voice recognition system. The report was reviewed for accuracy; however, sound-alike word errors, addition and/or deletions may occur. If there is any question about this report, please contact Client Services. ADDITIONAL NOTES: Immunohistochemical and/or in situ hybridization studies if performed in this case included appropriate positive controls that reacted as expected. This test was developed and its performance characteristics determined by [facility]. It has not been cleared or PATIENT NAME: JEANNE MONTE PATHOLOGY DATE OF : 53 REPORT #: [id number] PHYSICIAN: ARTURO ZIMMER PCP: BENNETT MENDIOLA MD REPORT IS CONFIDENTIAL AND NOT TO BE RELEASED WITHOUT AUTHORIZATION [address] [address] Signed approved by the U.S. Food and Drug Administration. The FDA has determined that such clearance or approval is not necessary. This test is used for clinical purposes. It should not be regarded as investigational or for research. [facility] is certified under the Clinical Laboratory Improvement Amendments of 1988 (CLIA) as qualified to perform high complexity clinical laboratory testing. PERFORMING LABORATORY: Technical preparation was performed by [facility], [address] [place] [address] (CLIA#: [id number]). Professional interpretation was performed by [facility], [address] [place] [address] (CLIA#: [id number]). Diagnostician: Feliberto Trejo MD Pathologist Electronically Signed 08/16/2024 Copies: ~ PATIENT NAME: JEANNE MONTE PATHOLOGY DATE OF : 53 REPORT #: [id number] PHYSICIAN: ARTURO ZIMMER PCP: BENNETT MENDIOLA MD REPORT IS CONFIDENTIAL AND NOT TO BE RELEASED WITHOUT AUTHORIZATION
--- NOTE | 2024-08-16 12:17 | NUR ---
Ultram 50mg po and tylenol 1000mg po admin at this time for reports of 6/[address] Forte to bedside-RUQ and ostomy appliance removed by Dr. Forte. RUQ joaquin also removed by then packed with gauze by Dr. Forte. Ostomy appliance replaced by this RN post Dr. Forte assessment-pt tolerated ostomy site change well. Stoma beefy red and most, output has been soft green in color, no blood noted. Patient denies nausea and is tolerating po well. Bladder scan done at this time-236ml noted. Encourage patient to drink more fluids. Scheduled torsemide admin per order. Patient's at bedside assisting with basic cares. Encouraged patient to call if he has needs.
--- NOTE | 2024-08-16 13:57 | NUR ---
Patient in bed watching tv, no distress. Gauze to RUQ open incision has serosang drainge noted. Ostomy site continues to be productive. Patient reports tolerable pain. Pt consumed approx 50% of lunch, no reported nausea. Encouraged patient to call if he has needs.
--- NOTE | 2024-08-16 14:14 | NUR ---
PATIENT IS IN BED AT THIS TIME, ENJOYING SOME PET THERAPY. LEAD LOADER GOT FRESH WATER, CHARTED VITALS AND I&O'S. CALL LIGHT WITH IN REACH.
--- NOTE | 2024-08-16 14:21 | NUR ---
VISITED DURING SPIRITUAL CARE ROUNDS. PT IN OVERALL GOOD SPIRITS, STATES, "GETTING STRONGER." SPECIMEN COLLECTOR PORIVDED SUPPORTIVE PRESENCE, HOSPITALITY, PRAYER, FACILITATED INTERACTION WITH THERAPY ANIMAL.
--- NOTE | 2024-08-16 15:13 | NUR ---
UR CONCURRENT REVIEW: [facility]- PER CHART AND [facility] [place] GUIDELINE FOR WOUND CARE ADDED DUE TO NEW INFECTIOUS PROCESS [employer] [place] 08/10/24 @ 1401 ORDER MATCHES REG AUTH# [id number]. UPDATED CLINICALS FAXED TO [employer] [place] DISCHARGE TO HOME WHEN STABLE
--- NOTE | 2024-08-16 16:13 | NUR ---
PATIENT GIVEN 1MG OF IV DILAUDID FOR 5/10 ABDOMINAL PAIN.
--- NOTE | 2024-08-16 17:38 | NUR ---
Packing to RUQ open wound remains serosang in color, minimal drainage. Ostomy site to RLQ appears to be functioning appropriately, pink/moist stoma noted. Patient continues to deny nausea, tolerating diet well. Patient denies needs, call light within reach.
--- NOTE | 2024-08-16 17:53 | NUR ---
PATIENT IS IN BED AT THIS TIME, TECHNICAL DESIGNER CHARTED VITALS AND I&O'S. CALL LIGHT WITH IN REACH NOTHING ELSE NEEDED AT THIS TIME.
--- NOTE | 2024-08-16 19:05 | NUR ---
REPORT RECEIVED FROM JOSE E GONCALVES. pt RESTING IN THE BED. BOARD UPDATED. CALL LIGHT WITHIN REACH.
--- NOTE | 2024-08-16 19:35 | NUR ---
IN ROOM WITH pt's DAYSHIFT IVANNA DORANTES, pt's UPCOMING NIGHTSHIFT IVANNA SNOW, AND pt's . pt REQUESTING PAIN MEDICATION-IVANNA DORANTES PROVIDING PRN PAIN MEDICATION-SEE EMAR. COMPLETE BED CHANGE ALSO COMPLETED AT THIS TIME PER REQUEST-pt TOLERATED FAIR AND ASSISTED ABLE WITH TURNING. SCD'S IN PLACE AND ROOM TIDIED ALONG WITH BOARD UPDATED.
--- NOTE | 2024-08-16 19:44 | NUR ---
Admin tylenol 1000mg po, ultram 50mg po and dilaudid 1mg iv at this time for reports of 5/10 incisional pain.
--- NOTE | 2024-08-16 20:18 | NUR ---
DESIGNER/WRITER OBTAINED VITALS AND I&O. ICE WATER REFILLED. PT STATES NO FURTHER NEEDS AT THIS TIME. CALL LIGHT WITHIN REACH.
--- NOTE | 2024-08-16 21:50 | NUR ---
ASSESSMENT AND VITAL SIGNS DONE. pt RESTING IN THE BED. SCHEDULED MEDS GIVEN. pt DENIES ANY OTHER NEEDS AT THIS TIME. CALL LIGHT WITHIN REACH. SODA PROVIDED. DRESSING INTACT. OSTOMY INTACT. IV FLUSHED, WNL.
--- NOTE | 2024-08-16 22:30 | NUR ---
DRESSING CHANGE DONE. RESTING IN THE BED. NO BILE NOTED ON THE OLD GAUZE. pt DENIES ANY OTHER NEEDS AT THIS TIME. GOWN CHANGED. pt DENIES ANY OTHER NEEDS AT THIS TIME. CALL LIGHT WITHIN REACH.
[2024-08-17] VITALS (11 sets, daily range): BP systolic 91–103; BP diastolic 53–66
--- NOTE | 2024-08-17 01:04 | NUR ---
IN RM TO CHECK ON pt. pt REQUESTS A PAIN MED. NO OTHER NEEDS AT THIS TIME. CALL LIGHT WITHIN REACH.
--- NOTE | 2024-08-17 02:05 | NUR ---
PRN PAIN MEDS ADMINISTERED. pt DENIES ANY OTHER NEEDS AT THIS TIME. CALL LIGHT WITHIN REACH.
--- NOTE | 2024-08-17 04:13 | NUR ---
pt RESTING IN THE BED WITH EYES CLOSED. RR EVEN AND UNLABORED. CALL LIGHT WITHIN REACH
--- NOTE | 2024-08-17 06:19 | NUR ---
VITAL SIGNS DONE. pt RESTING IN THE BED. SCHEDULED MEDS ADMINISTERED. pt DENIES ANY OTHER NEEDS AT THIS TIME. CALL LIGHT WITHIN REACH.
--- NOTE | 2024-08-17 07:15 | NUR ---
REPORT RECEIVED FROM JENNIFER GONCALVES. PT AWAKE AND RESTING IN BED, NO REQUESTS AT THIS TIME. HAS WOUND TO RUQ WITH GUAZE ORDERED, GAUZE WITH SEROSANGUANOUS DRAINAGE. OSTOMY TO RUQ INTACT WITH BROWN LIQUID STOOL IN OSTOMY BAG. CALL LIGHT WITHIN REACH.
[2024-08-17 08:00] LABS: BASOPHILS 1.4 % (0-2); EOSINOPHILS 6.5 % (0-6); HEMATOCRIT 28.3 % (35.0-50.0); HEMOGLOBIN 9.4 g/dL (12.0-18.0); MCH 31.1 (27-36); MCHC 33.1 g/dl (30-36); MCV 94.1 fl (81-99); MONOCYTES 6.9 % (0-12); NEUTROPHILS 78.2 % (39-80); PLATELET COUNT 221 K/uL (140-440); RDW 19.5 (10.5-15.0)
[2024-08-17 08:10] LABS: ANION GAP 9.4 (7-21); BUN/CREATININE RATIO 15.94 (6.0-28.6); CALCIUM 8.6 mg/dL (8.5-10.1); CREATININE, SERUM 0.69 mg/dL (0.70-1.30); MAGNESIUM 1.5 mg/dL (1.8-2.4); POTASSIUM 3.4 mmol/L (3.5-5.1)
--- NOTE | 2024-08-17 08:22 | NUR ---
DRSG CHANGE COMPLETED TO RUQ WOUND ORDERED. PT TOLERATED WELL. DRSG HAD SEROSANGUANOUS DRAINAGE, BUT NO BILE NOTED. CALL LIGHT WITHIN REACH.
--- NOTE | 2024-08-17 09:15 | NUR ---
DR GUZMÁN NOTIFIED OF LOW BLOOD PRESSURE, STATED HE STILL WANTED PT TO RECEIVE CARDIAC/BP MEDS.
--- NOTE | 2024-08-17 09:40 | NUR ---
PT SITTING UP IN BED PT DOES COMPLAIN OF PAIN IN THE LRQ OF ABD/STOMA. PT GIVEN PRN MEDICATION FOR PAIN (SEE EMAR). PT HAS NO OTHER CONCERNS AT THIS TIME CALL LIGHT IN REACH.
--- NOTE | 2024-08-17 12:30 | NUR ---
PT AMBULATED FROM CHAIR TO BED 1PA WITH FWW, PT TOLERATED WELL, BUT DID COMPLAIN OF PAIN 5/10. PT RECIEVED DILAUDID (SEE EMAR). PT HAS NO MORE CONCERNS AT THIS TIME CALL LIGHT IN REACH.
--- NOTE | 2024-08-17 13:15 | NUR ---
Spoke with Malachi. Updated I contacted Jason today and his trapeze is enroute. It will be delivered to their home [facility] when it arrives. We discussed he will most likely dc tomorrow. He would like to go home by yoshi and we will schedule. He denies other needs. He states he has all DME he needs. He does want to cont. HH. This will be ordered tomorrow. Updated ostomy supplies will be supplied and paid for by home health. I did fax them his last few progress notes and a list of ostomy supplies we are using so they will know the sizes.
--- NOTE | 2024-08-17 13:57 | NUR ---
PT LAYING IN BED, PT AWAKE AND ALERT, PT STATES " HIS PAIN IS UNDERCONTROL AT THE MOMENT AND 2/10 PAIN". PT HAS NO CONCERNS AT THIS TIME AND IS COMFORTABLE, PT HAS CALL LIGHT IN REACH.
--- NOTE | 2024-08-17 15:04 | NUR ---
WHEELCHAIR VAN SCHEDULED FOR 08/18/24 AT 1345.
--- NOTE | 2024-08-17 15:04 | NUR ---
PT LAYING IN BED, PT DRESSING CHANGE WAS DONE, SEROSANG DRAINAGE, NO BILE NOTED. PT TOLERATED DRESSING CHANGE WELL WITH NO COMPLAINTS AT THIS TIME CALL LIGHT IN REACH.
--- NOTE | 2024-08-17 16:22 | NUR ---
EMPTIED PATIENT OSTOMY BAG DURING MORING VITALS AND AFTERNOON VITALS.
--- NOTE | 2024-08-17 16:25 | NUR ---
VEENA CHANGED THE BED LINENS THIS MORING.
--- NOTE | 2024-08-17 17:08 | NUR ---
PT IN BED, PT REFUSED TO MOVE FROM BED TO CHAIR, PT WAS REPOSITIONED WITH A PILLOW UNDER THE LEFT HIP. PT HAS NO OTHER CONCERNS AT THIS TIME AND NOTES PAIN 2/10. PT HAS CALL LIGHT IN REACH.
--- NOTE | 2024-08-17 18:12 | NUR ---
PRN PAIN MEDICATION ADMINISTERED FOR RLQ PAIN PT RATES 5/10. PT RESTING IN BED WITH AT BEDSIDE. NO OTHER REQUESTS, CALL LIGHT IN REACH.
--- NOTE | 2024-08-17 18:27 | NUR ---
PT RESTING IN BED VISITING WITH HIS . PT STATES PAIN HAS DECREASED TO A TOLERABLE LEVEL AT THIS TIME. CALL LIGHT WITHIN REACH.
--- NOTE | 2024-08-17 19:18 | NUR ---
REPORT RECEIVED FROM FIDELIA GONCALVES. pt RESTING IN THE BED. BOAR UPDATED. pt DENIES ANY NEEDS AT THIS TIME. CALL LIGHT WITHIN REACH.
--- NOTE | 2024-08-17 20:15 | NUR ---
ASSESSMENT AND VITAL SIGNS DONE. DRESSING CHANGE DONE. NO BILE NOTED. pt TOLERATED WELL. NEW GOWN. URINAL EMPTIED. OSTOMY INTACT. pt REPOSTIONED WITH PILLOW UNDER RIGHT SIDE. pt DENIES ANY OTHER NEEDS AT THIS TIME. CALL LIGHT WITHIN REACH. IV ASSESSED, WNL. SCHEDULED MEDS ADMINISTERED.
--- NOTE | 2024-08-17 23:15 | NUR ---
pt RESTING IN THE BED WITH EYES CLOSED. RR EVEN AND UNLABORED. CALL LIGHT WITHIN REACH.
--- NOTE | 2024-08-18 02:01 | NUR ---
pt CALLED AND REQUESTED A PRN PAIN MEDICATION. pt C/O 11/04 PAIN. PRN PAIN MEDS ADMINSITERED. pt DENIES ANY OTHER NEEDS AT THIS TIME. CALL LIGHT WITHIN REACH.
--- NOTE | 2024-08-18 02:57 | NUR ---
pt ATTEMPTED TO USE URINAL. pt BED WAS WET AFTERWARDS. pt LINNENS WERE CHANGED. OSTOMY WAS EMPTIED. pt DENIES ANY OTHER NEEDS AT THIS TIME.
--- NOTE | 2024-08-18 05:02 | NUR ---
pt CALLED FOR PRN PAIN MEDS. pt C/O 10/05 PAIN. PRN PAIN MEDS ADMINISTERED. pt DENIES ANY OTHER NEEDS AT THIS TIME. CALL LUZ MARIA ALCOCER.
[2024-08-18 05:22] VITALS: BP 93/52
--- NOTE | 2024-08-18 05:22 | NUR ---
FINGERNAIL FORMER OBTAINED VITALS AND I&O. ICE WATER REFILLED. PT STATES NO FURTHER NEEDS AT THIS TIME. CALL LIGHT WITHIN REACH.
--- NOTE | 2024-08-18 05:35 | NUR ---
IN RM TO ASSESSMENT. SCHEDULED MEDS ADMINISTERED. pt DENIES ANY OTHER NEEDS AT THIS TIME. CALL LIGHT WITHIN REACH.
--- NOTE | 2024-08-18 07:15 | NUR ---
REPORT RECEIVED FROM IVANNA SNOW. pt RESTING IN BED WITH EYES CLOSED, BREATHING EQUAL AND UNLABORED. NO DISTRESS NOTED.
--- NOTE | 2024-08-18 07:50 | NUR ---
PHONE CALL TO MD TO UPDATE ON LABS, DISCHARGE PLAN TODAY, VOICEMAIL LEFT.
--- NOTE | 2024-08-18 07:56 | NUR ---
PATIENT BRUSHED HIS TEETH AND WASHED HIS FACE. EMPTIED HIS URINAL. PATIENT WAITING FOR BREAKFAST. WATCHING TV.
--- NOTE | 2024-08-18 07:58 | NUR ---
ASKED PATIENT IF HE WOULD LIKE TO GET UP TO THE CHAIR AND HE SAID NOT RITGH NOW MAYBE LATER.
--- NOTE | 2024-08-18 08:26 | NUR ---
MD ARRIVED TO FLOOR, INFORMED OF LOWER K/MG LEVELS, NO AM LABS TODAY. HE WILL REVIEW LABS/ORDERS. PRIMARY RN NOTIFIED.
--- NOTE | 2024-08-18 08:39 | NUR ---
PT CALL LIGHT ANSWERED. PT REQ HOB TO BE LOWERED. HOB LOWERED PER PT REQ. PT STATES THAT HE IS DONE WITH HIS MEAL TRAY. MEAL TRAY CLEARED FROM ROOM. URINAL PLACED CLOSER TO REACH PER PT REQ. PT DENIES FURTHER NEEDS AT THIS TIME, CALL LIGHT IN REACH
--- NOTE | 2024-08-18 08:51 | NUR ---
FACESHEET, ORDERS WITH FACE TO FACE, H&P, OP NOTE, DC SUMMARY FAXED TO [facility].
--- NOTE | 2024-08-18 08:55 | NUR ---
ALERT AND ORIENTED IN BED. PLANNING TO DC TO HOME TODAY. INFORMED HIM ORDERS HAVE BEEN SENT TO [facility] TO RESUME HIS HOME HEALTH AT DISCHARGE. DENIES OTHER NEEDS AT THIS TIME.
[2024-08-18] MEDS ORDERED: MAGNESIUM SULFATE 2 GM/50 ML BAG IV ONE (09:00)
[2024-08-18 09:02] VITALS: BP 100/55
--- NOTE | 2024-08-18 09:09 | NUR ---
PT VITALS AND I'S AND O'S COMPLETE. OSTOMY EMPTIED. RN IN ROOM. PT DENIES FURTHER NEEDS, CALL LIGHT IN REACH
--- NOTE | 2024-08-18 09:16 | NUR ---
UR CONCURRENT/CLINICAL REVIEW: [facility] [place] FOR BOWEL SURGERY WELL WOUND/SKIN MANAGEMENT GUIDELINES [employer] [place] IN[place] 08/10/24 @ 1401 ORDER MATCHES REG AUTH# [id number]. UPDATED CLINICALS FAXED TO [employer] [place] DC HOME TODAY.
--- NOTE | 2024-08-18 09:34 | NUR ---
pt AWAKE RESTING IN BED, COMPLAINS OF 2/10 PAIN IN ABDOMEN. PRN MEDICATION ADMINISTERED. ASSESSMENT COMPLETE. DRESSING CHANGE ON RUQ, NO BILE NOTED. OSTOMY EMPTIED BY ORA NGUYEN. SCDS OFF PER pt REQUEST. pt REFUSES UP TO CHAIR AT THIS TIME, AGREEABLE AFTER WALKING WITH PT TO GET UP. NEW GOWN PLACED. CALL LIGHT AND PERSONAL SUPPLIES WITHIN REACH.
[2024-08-18 09:36] VITALS: BP 100/55
[2024-08-18] MEDS ORDERED: LEVOFLOXACIN500 MG PO (10:47)
[2024-08-18] MEDS ORDERED: METRONIDAZOLE250 MG PO (10:47)
[2024-08-18] MEDS ORDERED: ACETAMINOPHEN500 MG PO (10:48)
--- NOTE | 2024-08-18 10:50 | NUR ---
CALL LIGHT ANSWERED. IV ALARMING, IV MG RIDER COMPLETE. SL WNL. URINAL EMPTIED. CALL LIGHT AND PERSONAL SUPPLIES IN REACH. pt DENIES NEEDS.
--- NOTE | 2024-08-18 11:48 | NUR ---
ROUNDED ON Pt. RESTING IN BED AWAKE. RATES PAIN 2/10 IN ABDOMEN. PRN TYLENOL ADMINSITERED. pt REFUSES AMBULATION ENCOURAGED AT THIS TIME. IN ROOM. SUPPLIES IN ROOM PLACED IN pt BELONGING BAGS. CALL LIGHT AND PERSONAL SUPPLIES IN REACH.
--- NOTE | 2024-08-18 12:36 | NUR ---
pt SITING UP IN BED EATING LUNCH. SCHEDULED PO ANTIBIOTICS ADMINISTERED. DENIES NEEDS. CALL LIGHT IN REACH.
[2024-08-18 13:04] VITALS: BP 100/53
--- NOTE | 2024-08-18 13:43 | NUR ---
pt ASSISTED TO DRESS IN HOME CLOTHING. IV SITES DC'D WNL. WRITTEN AND VERBAL DISCHARGE INFORMATION PROVIDED TO pt AND . 1PA TO TRANSFER TO WITH FWW. ESCORTED TO FRONT OF HOSPITAL TO MEET VAN WITH ORA SCHUMACHER AND pt'S .
== END 2024-08-18 13:42 | disposition home or self-care (01) | DRG 330 ==
LOC: MS 11:06 → CCU 14:01 → MS 14:01 → CCU 08-11 16:44 → MS 08-15 12:59
PROVIDERS: ADMIT Surgery; ATTEND Surgery
PROC: 0DBL0ZZ Excision of Transverse Colon, Open Approach (ICD-10-PCS; principal; 2024-08-11 11:00)
DX: K94.03 Colostomy malfunction (principal); Z68.41 Body mass index [BMI] 40.0-44.9, adult; E86.0 Dehydration; E66.01 Morbid (severe) obesity due to excess calories; K57.30 Diverticulosis of large intestine without perforation or abscess without bleeding; F41.9 Anxiety disorder, unspecified; F32.A Depression, unspecified; I50.9 Heart failure, unspecified; Z79.01 Long term (current) use of anticoagulants; Z88.0 Allergy status to penicillin; Z88.8 Allergy status to other drugs, medicaments and biological substances
CPT/HCPCS: 00840; 36415; 64486; 71045; 71046; 76942; 80048; 80053; 83735; 85025; 85610; 85730; 86850; 86900; 86901; 86922; 93005; 93010; 94668; 94760; 97161; 97530; A9270; A9270-GY; J0131; J0330; J0690; J1100; J1171; J1650; J1885; J1940; J2003; J2405; J2704; J2795; J3010; J3475; J3480; J3490; J7060; J7121; P9016